=== PATIENT | male | born 1945 | race Caucasian/White ===

== ENCOUNTER → 2017-10-10 | Day surgery (SDC) | payer MEDICARE, OTHER ==
[2017-10-02 11:23] VITALS: BMI 34.8
[~2017-10-10] MED LIST: BUPIVACAINE-EPI 0.5%-1:200,000 10 ML VIAL SQ ONE; DEXAMETHASONE SOD PHOSPHATE 10 MG/ML 1 ML VIAL IV ONE; GLYCOPYRROLATE 0.2 MG/ML 2 ML VIAL ONE; HEPARIN SODIUM,PORCINE 5,000 UNIT/ML 1 ML VIAL SQ ONE; HYDROcodone/APAP 7.5-325MG 1 EACH TAB PO ONE; HYDROmorphone (PF) 1 MG/ML ONE; HYDROmorphone 2 MG/ML 1 ML SYRINGE IVP ONE; LIDOCAINE 1% 20 ML VIAL (10MG/ML) FOR IV START INTRADERMA ONE; LIDOCAINE 1% INJ 10MG/ML (20 ML MDV) ONE; MIDAZOLAM 2 MG/2 ML VIAL IV PRN; MIDAZOLAM 2 MG/2 ML VIAL ONE; MORPHINE SULFATE 2 MG/ML SYRINGE IV PRN; NEOSTIGMINE 1 MG/ML 10 ML VIAL ONE; ONDANSETRON 4 MG/2 ML VIAL IVP ONE; PHENYLEPHRINE-0.9% NACL SYG 1 MG/10 ML SYRINGE ONE; PROPOFOL 10 MG/ML 20 ML VIAL IV ONE; SUCCINYLCHOLINE CHLORIDE VIAL 200 MG/10 ML VIAL IV ONE; VECURONIUM 10 MG VIAL IV ONE; ceFAZolin IN SWFI 2 GM/20 ML SYRINGE IVP ONE; fentaNYL (PF) 50 MCG/ML 2 ML AMP ONE
[2017-10-10] MEDS: LACTATED RINGERS 1,000 ML IV SCH (07:46)
[2017-10-10 07:48] LABS: Glucose,Whole Blood 144 mg/dL (75-99)
--- NOTE | 2017-10-10 07:53 | P.GSHP ---
History of Present Illness H&P Date: 10/10/17 Chief Complaint: Bilateral inguinal hernias, umbilical hernia This is a 71-year-old male referred from Dr. Carla mckeon. Patient presents today for laparoscopic robotic system repair of bilateral inguinal hernias and umbilical hernia. Patient developed tender masses in bilateral groins. Past Medical History Past Medical History: Coronary Artery Disease (CAD), Diabetes Mellitus, Hyperlipidemia, Hypertension, Osteoarthritis (OA), Prostate Disorder Additional Past Medical History / Comment(s): problem with balance, Menieres History of Any Multi-Drug Resistant Organisms: None Reported Past Surgical History: Back Surgery, Coronary Bypass/CABG, Heart Catheterization , Orthopedic Surgery Additional Past Surgical History / Comment(s): graham carpal tunnel, cervical fusion, L3-l5 x 2(fusion) Past Anesthesia/Blood Transfusion Reactions: Family History of Problems w/ Anesthesia Smoking Status: Former smoker - Past Family History Mother Family Medical History: Cancer Medications and Allergies Home Medications Medication Instructions Recorded Confirmed Type Allopurinol [Zyloprim] 300 mg PO DAILY 09/06/17 10/10/17 History Aspirin 325 mg PO DAILY 09/06/17 10/02/17 History Atorvastatin [Lipitor] 10 mg PO DAILY 09/06/17 10/10/17 History Lisinopril-Hctz 20-25 mg 1 tab PO DAILY 09/06/17 10/10/17 History [Zestoretic 20-25] Loratadine [Claritin] 10 mg PO DAILY 09/06/17 10/10/17 History Anna-3 Fatty Acids/Fish Oil [Fish 1 cap PO DAILY 09/06/17 10/02/17 History Oil 1,000 mg Softgel] glipiZIDE XL [Glucotrol Xl] 2.5 mg PO DAILY 09/06/17 10/10/17 History Nitroglycerin Sl Tabs [Nitrostat] 0.4 mg SUBLINGUAL Q5M PRN 10/02/17 10/02/17 History traMADol HCl [Ultram] 100 mg PO TID PRN 10/02/17 10/10/17 History Allergies Allergy/AdvReac Type Severity Reaction Status Date / Time almond Allergy Unknown Verified 10/02/17 11:08 black pepper Allergy Unknown Verified 10/02/17 11:08 coconut Allergy Unknown Verified 10/02/17 11:08 egg Allergy Unknown Verified 10/02/17 11:08 gluten Allergy Unknown Verified 10/02/17 11:08 milk Allergy Unknown Verified 10/02/17 11:08 oats Allergy Unknown Verified 10/02/17 11:08 peach Allergy Unknown Verified 10/02/17 11:08 peanut Allergy Unknown Verified 10/02/17 11:08 pineapple Allergy Unknown Verified 10/02/17 11:08 tetanus and diphtheria Allergy Unknown Verified 10/02/17 11:08 toxoids tomato Allergy Unknown Verified 10/02/17 11:08 Surgical - Exam Vital Signs Temp Pulse Resp BP Pulse Ox 97.7 F 85 18 133/72 97 10/10/17 07:24 10/10/17 07:24 10/10/17 07:24 10/10/17 07:24 10/10/17 07:24 - General well developed, well nourished, no distress - Eyes PERRL - ENT normal pinna - Neck no masses - Respiratory normal expansion - Cardiovascular Rhythm: regular - Abdomen Abdomen: soft, non tender Hernia: inguinal (Bilateral inguinal hernias), umbilical (Umbilical hernia ) Results - Labs Abnormal Lab Results - Last 24 Hours (Table) 10/10/17 Range/Units 07:32 POC Glucose (mg/dL) 144 H (75-99) mg/dL Assessment and Plan Assessment: bilateral inguinal hernia, umbilical hernia we'll perform laparoscopic robotic- assisted repair. Plan: bbb
[2017-10-10 10:04] VITALS: TEMP 97.6
[2017-10-10 10:22] VITALS: RESP 16
--- NOTE | 2017-10-10 10:27 | P.OP ---
Date of Procedure: 10/10/17 Preoperative Diagnosis: bilateral inguinal hernias Umbilical hernia Postoperative Diagnosis: bilateral internal hernia Bilateral cord lipoma Umbilical hernia Procedure(s) Performed: laparoscopic robotic repair of bilateral inguinal hernia Laparoscopic excision of bilateral cord lipoma Laparoscopic repair of umbilical hernia Anesthesia: VANGIE Surgeon: Ryan Ulrich Estimated Blood Loss (ml): 5 Pathology: other (right and left cord lipoma) Condition: stable Disposition: PACU Description of Procedure: The patient's placed on the operating table in the supine position. The patient received general anesthesia. The patient's abdomen was prepped and draped in usual sterile fashion. The skin was anesthetized 1% local Xylocaine at the incision sites. Using an 11 blade a skin incision was made at the umbilicus. The fascia was grasped with a Kerry and then the peritoneal cavity was entered with the Veress needle. Position of the Veress needle was confirmed with a positive drop test. After adequate insufflation a 5 mm trocar was placed into the peritoneal cavity. The Laparoscope was placed the peritoneal cavity. And a robotic 8 mm trocar was placed in the right lateral position and then another 8 mm robotic trochars placed in the left lateral position. The original 5 mm trocar was exchanged for a 12 mm trocar. The patient was placed in reverse Trendelenburg and then the patient was docked to the robot. Next the peritoneum over top of the righthernia was incised and then using blunt and sharp dissection and electrocautery the hernia sac was dissected free from the floor of the inguinal canal. The hernia sac was completely reduced into the peritoneal cavity. cord lipoma was dissected free from the cord.And then using the Pro manager psychiatry mesh the hernia was repaired. The peritoneum was then sutured with 20V lock suture. next, left inguinal hernia was repaired in identical fashion. the righthernia was incised and then using blunt and sharp dissection and electrocautery the hernia sac was dissected free from the floor of the inguinal canal. The hernia sac was completely reduced into the peritoneal cavity. the cord lipoma was excised from the cord. And then using the Pro manager psychiatry mesh the hernia was repaired. The peritoneum was then sutured with 20V lock suture. The patient was then undocked the robot. The needle was withdrawn from the peritoneal cavity. the cord lipomas were removed fromfrom the peritoneal cavity and sent to pathology..The umbilicalherniar site was closed with 0 Ethibond suture. The skin was closed interrupted 3-0 Monocryl suture. Dermabond dressing was applied. Patient was sent to recovery in stable condition.
[2017-10-10 10:45] LABS: Glucose,Whole Blood 310 mg/dL (75-99)
[2017-10-10 10:58] LABS: Glucose,Whole Blood 273 mg/dL (75-99)
[2017-10-10 12:59] VITALS: BP 107/56; PULSE 78
== END ==
LOC: OR 06:50
PROVIDERS: ATTEND Surgery
DX: K40.20 Bilateral inguinal hernia, without obstruction or gangrene, not specified as recurrent (principal); K42.9 Umbilical hernia without obstruction or gangrene; D17.6 Benign lipomatous neoplasm of spermatic cord; I25.10 Atherosclerotic heart disease of native coronary artery without angina pectoris; E11.9 Type 2 diabetes mellitus without complications; E78.5 Hyperlipidemia, unspecified; I10 Essential (primary) hypertension; M19.90 Unspecified osteoarthritis, unspecified site; N42.9 Disorder of prostate, unspecified; F41.9 Anxiety disorder, unspecified; F32.9 Major depressive disorder, single episode, unspecified; H81.09 Meniere's disease, unspecified ear; Z95.1 Presence of aortocoronary bypass graft; Z79.84 Long term (current) use of oral hypoglycemic drugs; Z79.82 Long term (current) use of aspirin; Z79.899 Other long term (current) drug therapy; Z91.012 Allergy to eggs; Z91.011 Allergy to milk products; Z91.018 Allergy to other foods; Z88.7 Allergy status to serum and vaccine; Z91.010 Allergy to peanuts; Z87.891 Personal history of nicotine dependence
CPT/HCPCS: 88304; 49650; 49652; 55559; C1781; J2250; J0330; J1170 ×2; J1644; J1100; J2710; J0690; J2405; J2001; J3010; J2370; J2704

== ENCOUNTER → 2019-09-05 | Outpatient (CLI) | payer MEDICARE ==
--- NOTE | 2019-09-05 11:56 | CONS ---
CONSULTATION DATE OF SERVICE: 09/05/2019 A 73-year-old gentleman who has been evaluated in the Sleep Center for possible obstructive sleep apnea-hypopnea syndrome. HISTORY OF PRESENT ILLNESS/SLEEP-WAKE EVALUATION: Patient usually sleeps from around 9 pm until about 5 am. He does have problems with falling asleep, although no TV in bedroom. He sleeps with his . According to her, he snores, has episodes of stopped breathing during sleep and does toss and turn a lot during the sleep. He wakes up from sleep 3 times with nocturia, grinding teeth, dry mouth, heartburn, positive history of episodes of sleepwalking or sleep talking, sweating and gasping for air. No history of hypnagogic hallucinations, sleep paralysis or cataplexy. Patient takes multiple naps during the day up to 5 times in the middle of the day. [place] Sleepiness Scale extremely high 21. PAST MEDICAL HISTORY: Positive for coronary artery disease, hypertension, diabetes mellitus, hyperlipidemia, increased eye pressure. PAST SURGICAL HISTORY: Coronary artery bypass graft, several herniated prior surgeries, surgery for bilateral carpal tunnel syndrome, right inner ear surgery. MEDICATIONS: Toprol, metformin, losartan, atorvastatin, Nitrostat, latanoprost eye drops, aspirin, D3, hydrochlorothiazide. Medication for pain. Patient does SOCIAL HISTORY: Positive for smoking for about 35 years, up to 3 packs a day. According to patient, alcohol consumption none at the present time. REVIEW OF SYSTEMS: Multiple awakenings from sleep, back pain, tiredness and sleepiness during the day. FAMILY HISTORY: Hypertension, heart problems, hyperlipidemia, stroke, asthma, sinus problems, snoring, pneumonia, lung problems, acid reflux, ulcers, diabetes, nasal polyps. PHYSICAL EXAM: gentleman without distress BP 130/64, HR 68, RR 14, height 5 feet 10 inches, weight 225.8, temperature 97.6, oxygen saturation at room air 97% oropharynx low position of soft palate. Mallampati of 3. White neck is 17 inches in circumference, restriction of nasal breathing the physical just heart S1, S2 regular with some extrasystoles. LUNGS: Clear to percussion and to auscultation. Good air exchange. No wheezing or rhonchi. HEART: My template. IMPRESSION: 1. One snoring witnessed episodes of stopped breathing during sleep. Low position of soft palate, wide neck sleepiness or obstructive sleep apnea-hypopnea syndrome 2 significant excessive daytime sleepiness with [place] Sleepiness Scale of 21. Dictated necessity to include hypersomnia in differential diagnosis. Three significant amount of movements at night. Rule out periodic limb movements. 2. Coronary artery disease, status post [place] and CABG. 3. Hypertension. 4. Hyperlipidemia. 5. Diabetes mellitus. 6. Increased eye pressure. 7. Meniere disease. Remote history of Meniere disease. 8. Status post right inner ear surgery. 9. Status post several hernia repair surgeries status post bilateral surgery for carpal tunnel syndrome. 10.History of broken neck and broken back, status post surgical treatment. PLAN: 1. Polysomnography for evaluation of patient's breathing during sleep. 2. CPAP/BiPAP titration if sleep study confirms obstructive sleep apnea-hypopnea syndrome. 3. Preferable position during sleep on the side. 4. No driving if patient feels any sleepiness. 5. I will see patient for follow up visit to explain results of testing and following plan. Thank you very much for referring this patient for consultation. Sincerely, Pierre Birmingham MD, PhD, FAASM Diplomat of [employer] Retail Salesworker of [facility] [place] MMODL / IJN: [id number] /
== END | disposition home or self-care (01) ==
LOC: SLEEP 10:24
PROVIDERS: ATTEND Internal Medicine
DX: R06.83 Snoring (principal); I25.10 Atherosclerotic heart disease of native coronary artery without angina pectoris; I10 Essential (primary) hypertension; E78.5 Hyperlipidemia, unspecified; E11.9 Type 2 diabetes mellitus without complications; H40.059 Ocular hypertension, unspecified eye; H81.09 Meniere's disease, unspecified ear; R35.1 Nocturia; G47.63 Sleep related bruxism; R12 Heartburn; R68.2 Dry mouth, unspecified; F17.210 Nicotine dependence, cigarettes, uncomplicated; Z87.81 Personal history of (healed) traumatic fracture; Z95.1 Presence of aortocoronary bypass graft; Z98.890 Other specified postprocedural states; Z79.82 Long term (current) use of aspirin; Z79.84 Long term (current) use of oral hypoglycemic drugs; Z79.899 Other long term (current) drug therapy
CPT/HCPCS: 99211

== ENCOUNTER → 2020-03-19 | Outpatient (CLI) | payer MEDICARE ==
--- NOTE | 2020-03-20 05:25 | SFUN ---
SLEEP CENTER FOLLOW UP NOTE DATE OF SERVICE: 03/19/2020 This is a 74-year-old gentleman who has been followed in sleep center for treatment of obstructive sleep apnea-hypopnea syndrome. Today is his first visit after he was started on treatment with CPAP. The patient is able to use CPAP equipment every night and feels much better after awakenings in the morning while started to use CPAP. No problems with the sinuses. [place] Sleepiness Scale today is 12. I checked patient's CPAP unit. CPAP pressure of 6 cm of water. Usage 28 out of 30 nights for more than 4 hours. Average use is 6.2 hours. Leak 12 L/minute. Apnea- hypopnea index only 0.8, which is absolutely perfect. MEDICATIONS: Glipizide, lisinopril, hydrochlorothiazide, atorvastatin, montelukast, allopurinol, , tramadol. PHYSICAL EXAMINATION: GENERAL: Patient in no distress. VITAL SIGNS: BP 112/52, HR 72, RR 16, weight 231, temp 97.9, oxygen saturation at room air 99%. HEENT: PERRLA, EOMI. Oropharynx low position of soft palate. NECK: Supple, no JVD. Thyroid is not palpable. LUNGS: Clear to percussion and to auscultation. Good air exchange. No wheezing or rhonchi. HEART: S1, S2 regular. No murmurs, gallops, or rubs. ABDOMEN: Soft and nontender. Bowel sounds are present. No organomegaly appreciated. EXTREMITIES: No clubbing or cyanosis. EXPLOSIVE ORDNANCE HANDLER: Awake, alert, and oriented X3. Cranial nerves 2 to 7 intact. There is no fasciculation or atrophy. noted. No focal deficits observed. IMPRESSION: 1. Obstructive sleep apnea-hypopnea syndrome. Patient demonstrated great compliance with treatment, benefitting from treatment. 2. Periodic limb movements during the sleep study. 3. Coronary artery disease, status post coronary artery bypass grafting. 4. Hypertension. 5. Diabetes mellitus. 6. History of increased eye pressure. 7. History of Meniere disease. 8. History of broken neck. 9. History of broken back. PLAN: 1. Patient will continue to use CPAP equipment every night for the whole night. 2. Watching and losing weight. 3. Sleep hygiene with regular time in bed for at least 7-1/2 to 8 hours. 4. No driving if feeling any sleepiness. 5. Will maintain prescriptions for all necessary supplies. 6. Follow-up visit in 6 months or earlier if patient has any problems. Thank you very much for allowing me to participate in management of your patient. Sincerely, Pierre Birmingham MD, PhD, FAASM Diplomat of [employer] Housing Counselor of [facility] [place] MMODL / FELISHAN: [id number] /
== END | disposition home or self-care (01) ==
LOC: SLEEP 13:30
PROVIDERS: ATTEND Internal Medicine
DX: G47.33 Obstructive sleep apnea (adult) (pediatric) (principal); I25.10 Atherosclerotic heart disease of native coronary artery without angina pectoris; I10 Essential (primary) hypertension; E11.9 Type 2 diabetes mellitus without complications; G47.61 Periodic limb movement disorder; Z95.1 Presence of aortocoronary bypass graft; Z86.69 Personal history of other diseases of the nervous system and sense organs; Z87.39 Personal history of other diseases of the musculoskeletal system and connective tissue; Z79.84 Long term (current) use of oral hypoglycemic drugs; Z79.891 Long term (current) use of opiate analgesic; Z79.899 Other long term (current) drug therapy

== ENCOUNTER → 2020-05-18 | Outpatient (CLI) | payer MEDICARE ==
--- NOTE | 2020-05-18 07:42 | MR ---
MRI CERVICAL SPINE: CLINICAL HISTORY: Cervical radiculopathy per order. Headache with neck pain causing pain or weakness to both arms and fingers after work injury and surgery 20 years ago per patient. TECHNIQUE: Multiplanar, multisequence imaging of the cervical spine is performed without and with IV contrast, 10 cc of gadolinium was given intravenously. COMPARISON: None. FINDINGS: Sagittal images of the cervical spine show the craniocervical junction to appear within nor mal limits. The cervical and upper thoracic spinal cord is normal in caliber and signal. Some loss o f normal cervical curvature is present. There is ossific fusion at the C5-C6 level with moderate to s evere anterior spurring. Moderate to severe anterior spurring C4-C5 level is present. Moderate disc s pace narrowing with vacuum disc phenomenon and moderate anterior spurring at the C6-C7 level. Narrowi ng The bone marrow signal intensity is within normal limits. No suspicious postcontrast enhancement i s seen. Axial images at C2-C3 level shows some uncovertebral facet degenerative change bilaterally causing mi ld right greater than left bilateral neural foraminal narrowing. Axial images at the C3-C4 level from uncovertebral facet degenerative changes bilaterally causing mod erate to severe left and mild to moderate right-sided neural foraminal narrowing. Axial images at C4-C5 level show mild broad disc protrusion minimally effacing anterior thecal sac an d causing mild left-sided neural foraminal narrowing. Axial images at the C5-C6 level show left-sided paracentral bony projections effacing the anterolater al thecal sac greatest axial image 25 with mild to moderate left greater than right bilateral neural foraminal narrowing. Axial images of the C6-C7 level show focal left paracentral disc protrusion effacing anterolateral th ecal sac, there is mild right greater than left bilateral neural foraminal narrowing at this level id entified. Axial images at the C7-T1 level showed tiny left paracentral disc protrusion minimally effacing the a nterior thecal sac. Bilateral neural foramina are patent. 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 Multilevel degenerative changes in the cervical spine as detailed above.
== END | disposition home or self-care (01) ==
LOC: RADMRIMAIN 06:11
PROVIDERS: ATTEND Family Medicine
DX: M47.22 Other spondylosis with radiculopathy, cervical region (principal)
CPT/HCPCS: 72156; A9585

== ENCOUNTER → 2020-06-17 | Outpatient (CLI) | payer MEDICARE ==
[2020-06-17 13:12] VITALS: BP 161/82; PULSE 79; RESP 18; TEMP 97.9
--- NOTE | 2020-06-17 13:37 | P.PAINCN ---
History of Present Illness - Reason for Consult Consult date: 06/17/20 - History of Present Illness This is a 74-year-old patient referred by Dr. Terrazas (PCP) with a chief complaint of chronic pain in the neck and bilateral upper extremities. He said that the pain was located in the neck primarily. Hearing injury at work 20 years ago and had a resultant fusion with bone grafts in his cervical spine any mention. In the last 2-1/2 months, he noticed that pain is getting worse and is now spread into his bilateral upper extremities. Of note he does have extremely of bilateral carpal tunnel surgery, however he says his pain is much different. Pain is located in the neck with radiation into the right and left upper extremities down the posterior aspect into digits 2 through 5. The pain is described as sharp and stabbing with no alleviating factors and constant throughout the day. Any form of movement is extremely painful and his pain is currently a 10 out of 10. She mentions that he tried physical therapy in the past for his back, however he felt made the pain worse. He has had pain injections in his back in the past which sounded like a lumbar epidural steroid injection which she said helped for 6 weeks. 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 Patient denies adverse drug effects from medications. Patient also denies new-onset weakness, bowel/bladder incontinence, or any other signs or symptoms of cauda equina syndrome. There are no signs of acute intoxication, and no indications of medication diversion or overuse. In addition to above, 13-point review of systems is also negative for chest pain, shortness of breath, changes in vision, changes in hearing, new onset weakness, abdominal pain, diarrhea, extreme fatigue, malaise, fever, skin changes, homicidal or suicidal ideation, or bowel or bladder incontinence. Physical exam: Vital Signs: Reviewed in EMR GENERAL: Well appearing, obese, in no acute distress PSYCH: Mood and affect is appropriate. Awake, alert, and oriented SKIN: Skin color, texture, turgor normal, no rashes or lesions HEENT: Normocephalic, atraumatic. EOM intact CV: No pedal edema RESP: Respirations are unlabored, no audible wheezing GI: Abdomen non-distended MUSCULOSKELETAL: Bi Neck: pain to palpation over the cervical paraspinous muscles. Spurling positive, Axial Loading Test positive, Mcintosh's sign negative. pain with neck flexion, extension, and lateral flexion. No obvious deformity or signs of trauma.Decreased cervical lordotic curve and extremely limited cervical spine range of motion 4/5 strength bilaterally shoulder abduction, triceps extension, wrist extension, finger abduction. 5/5 otherwise. reflexes symmetric and intact. Extremities: Peripheral joint ROM is full and pain free without obvious instability or laxity in all four extremities. No edema or skin discolorations noted. Gait: Gait is normal NEUR: Bilateral upper and lower extremity coordination and muscle stretch reflexes are physiologic and symmetric. Negative clonus. No loss of sensation is noted. Cranial nerves are grossly intact. Imaging: MRI cervical spine 05/18/20 C2-C3 there is some uncovertebral facet degenerative changes bilaterally causing mild right greater than left bilateral neural foraminal narrowing. At C3-C4 there is uncovertebral facet degenerative changes bilaterally causing moderate to severe left and moderate right-sided neural foraminal narrowing C4-C5 shows a mild broad disc protrusion minimally effacing the anterior thecal sac. C5-C6 shows a left-sided paracentral bony extrusion effacing the anterior lateral thecal sac with mild to moderate left greater than right bilateral foraminal narrowing C6-C7 shows focal left paracentral disc protrusion effacing the anterior third lateral thecal sac with mild right greater than left bilateral foraminal narrowing C7-T1 shows tiny paracentral disc protrusion minimally effacing anterior thecal sac. Assessment: 1. Cervical radiculopathy 2. Cervical facet disease 3. Myofascial pain Plan: 1. Explanation: Diagnoses, prognoses, and multiple treatment options including but not limited to physical therapy, interventional therapies, medication management and surgery were discussed with the patient and all questions were answered to the patient's satisfaction. 2. Investigations: None 3. Counseling: The patient was counseled for 3 minutes on, BODY MASS INDEX, EXERCISE. Specifically, the patient was instructed regarding the importance of weight control, and exercise in the context of both chronic pain and overall health. 4. Procedures: For C7-T1 interlaminar epidural steroid injection. If this does not help the patient, can consider cervical medial branch workup 5. Consultations: None 6. Medications: Defer to primary 7. Disposition: for procedure Past Medical History Past Medical History: Coronary Artery Disease (CAD), Diabetes Mellitus, Hyperlipidemia, Hypertension, Osteoarthritis (OA) Additional Past Medical History / Comment(s): problem with balance, Menieres, neck and back pain History of Any Multi-Drug Resistant Organisms: None Reported Past Surgical History: Back Surgery, Coronary Bypass/CABG, Heart Catheterization, Orthopedic Surgery Additional Past Surgical History / Comment(s): CABG X3m, graham carpal tunnel, cervical fusion, L4-5-6 Past Anesthesia/Blood Transfusion Reactions: No Reported Reaction Smoking Status: Former smoker - Past Family History Mother Family Medical History: Cancer Medications and Allergies Home Medications Medication Instructions Recorded Confirmed Type Aspirin 325 mg PO DAILY 09/06/17 06/17/20 History Lisinopril-Hctz 20-25 mg 1 tab PO DAILY 09/06/17 06/17/20 History [Zestoretic 20-25] allopurinoL [Zyloprim] 300 mg PO DAILY 09/06/17 06/17/20 History glipiZIDE XL [Glucotrol Xl] 2.5 mg PO DAILY 09/06/17 06/17/20 History Nitroglycerin Sl Tabs [Nitrostat] 0.4 mg SUBLINGUAL Q5M PRN 10/02/17 06/17/20 History traMADol HCl [Ultram] 100 mg PO TID PRN 10/02/17 06/17/20 History Atorvastatin [Lipitor] 20 mg PO DAILY 06/15/20 06/17/20 History Cyclobenzaprine [Flexeril] 10 mg PO BID PRN 06/15/20 06/17/20 History Montelukast [Singulair] 10 mg PO DAILY 06/15/20 06/17/20 History Oxycarbazepine 150 mg PO BID 06/15/20 06/17/20 History Cholecalciferol (Vitamin D3) 1 cap PO DAILY 06/17/20 06/17/20 History [Vitamin D3] Vitamin B Complex/Folic Acid 1 tab PO DAILY 06/17/20 06/17/20 History [B-Complex Tablet] Allergies Allergy/AdvReac Type Severity Reaction Status Date / Time almond Allergy Unknown Verified 06/15/20 14:29 black pepper Allergy Unknown Verified 06/15/20 14:29 coconut Allergy Unknown Verified 06/15/20 14:29 egg Allergy Unknown Verified 06/15/20 14:29 gluten Allergy Unknown Verified 06/15/20 14:29 milk Allergy Unknown Verified 06/15/20 14:29 oats Allergy Unknown Verified 06/15/20 14:29 peach Allergy Unknown Verified 06/15/20 14:29 pineapple Allergy Unknown Verified 06/15/20 14:29 tetanus and diphtheria Allergy Unknown Verified 06/15/20 14:29 toxoids tomato Allergy Unknown Verified 06/15/20 14:29 PQRS Measure Charge Sheet PQRS Narrative: Smoking Status Former smoker Pain Intensity [Neck] 7 Scale Used Numeric (1 - 10) Home Medications: Ambulatory Orders Aspirin 325 mg PO DAILY 09/06/17 Lisinopril-Hctz 20-25 mg [Zestoretic 20-25] 1 tab PO DAILY 09/06/17 allopurinoL [Zyloprim] 300 mg PO DAILY 09/06/17 glipiZIDE XL [Glucotrol Xl] 2.5 mg PO DAILY 09/06/17 Nitroglycerin Sl Tabs [Nitrostat] 0.4 mg SUBLINGUAL Q5M PRN 10/02/17 traMADol HCl [Ultram] 100 mg PO TID PRN 10/02/17 Atorvastatin [Lipitor] 20 mg PO DAILY 06/15/20 Cyclobenzaprine [Flexeril] 10 mg PO BID PRN 06/15/20 Montelukast [Singulair] 10 mg PO DAILY 06/15/20 Oxycarbazepine 150 mg PO BID 06/15/20 Cholecalciferol (Vitamin D3) [Vitamin D3] 1 cap PO DAILY 06/17/20 Vitamin B Complex/Folic Acid [B-Complex Tablet] 1 tab PO DAILY 06/17/20
== END | disposition home or self-care (01) ==
LOC: PNWHC3 12:50
PROVIDERS: ATTEND Anesthesiology
DX: M54.12 Radiculopathy, cervical region (principal); M79.18 Myalgia, other site; E11.9 Type 2 diabetes mellitus without complications; E78.5 Hyperlipidemia, unspecified; I10 Essential (primary) hypertension; M19.90 Unspecified osteoarthritis, unspecified site; I25.10 Atherosclerotic heart disease of native coronary artery without angina pectoris; Z79.82 Long term (current) use of aspirin; Z79.891 Long term (current) use of opiate analgesic; Z79.899 Other long term (current) drug therapy; Z79.84 Long term (current) use of oral hypoglycemic drugs; Z91.012 Allergy to eggs; Z91.011 Allergy to milk products; Z91.018 Allergy to other foods; Z88.7 Allergy status to serum and vaccine; Z91.09 Other allergy status, other than to drugs and biological substances
CPT/HCPCS: 99211

== ENCOUNTER 2020-06-30 07:17 | Day surgery (SDC) | payer MEDICARE ==
[~2020-06-30 07:17] MED LIST changes: -BUPIVACAINE-EPI 0.5%-1:200,000 10 ML VIAL SQ ONE; -DEXAMETHASONE SOD PHOSPHATE 10 MG/ML 1 ML VIAL IV ONE; -GLYCOPYRROLATE 0.2 MG/ML 2 ML VIAL ONE; -HEPARIN SODIUM,PORCINE 5,000 UNIT/ML 1 ML VIAL SQ ONE; -HYDROcodone/APAP 7.5-325MG 1 EACH TAB PO ONE; -HYDROmorphone (PF) 1 MG/ML ONE; -HYDROmorphone 2 MG/ML 1 ML SYRINGE IVP ONE; +LACTATED RINGERS 1,000 ML IV SCH; -LIDOCAINE 1% 20 ML VIAL (10MG/ML) FOR IV START INTRADERMA ONE; -LIDOCAINE 1% INJ 10MG/ML (20 ML MDV) ONE; -MIDAZOLAM 2 MG/2 ML VIAL IV PRN; -MIDAZOLAM 2 MG/2 ML VIAL ONE; -MORPHINE SULFATE 2 MG/ML SYRINGE IV PRN; -NEOSTIGMINE 1 MG/ML 10 ML VIAL ONE; -ONDANSETRON 4 MG/2 ML VIAL IVP ONE; -PHENYLEPHRINE-0.9% NACL SYG 1 MG/10 ML SYRINGE ONE; -PROPOFOL 10 MG/ML 20 ML VIAL IV ONE; -SUCCINYLCHOLINE CHLORIDE VIAL 200 MG/10 ML VIAL IV ONE; -VECURONIUM 10 MG VIAL IV ONE; -ceFAZolin IN SWFI 2 GM/20 ML SYRINGE IVP ONE; -fentaNYL (PF) 50 MCG/ML 2 ML AMP ONE
[2020-06-30 08:10] VITALS: RESP 16; TEMP 97.4
[2020-06-30 08:18] LABS: Glucose,Whole Blood 155 mg/dL (75-99)
[2020-06-30] MEDS ORDERED: LIDOCAINE 1% (10MG/ML) FOR IV START INTRADERMA ONE (08:18)
[2020-06-30] MEDS ORDERED: IOPAMIDOL M200 10 ML VIAL ONE (08:35)
[2020-06-30] MEDS ORDERED: fentaNYL (PF) 50 MCG/ML 2 ML AMP ONE (08:35)
[2020-06-30] MEDS ORDERED: MIDAZOLAM 2 MG/2 ML VIAL ONE (08:35)
[2020-06-30] MEDS ORDERED: DEXAMETHASONE SOD PHOSPHATE 10 MG/ML 1 ML VIAL ONE (08:35)
--- NOTE | 2020-06-30 08:51 | P.PCN ---
Date of Procedure: 06/30/20 Procedure(s) Performed: . PROCEDURE 1. Cervical epidural steroid injection under fluoroscopic guidance, C7-T1 (fluoroscopy images available in the radiology department ) 2. Cervical epidurogram. PREOPERATIVE DIAGNOSIS: 1- Cervical radiculopathy., 2-cervical spondylosis with cervical Facet arthropathy without myelopathy POSTOPERATIVE DIAGNOSIS: : 1- Cervical radiculopathy. 2-,cervical spondylosis with cervical Facet arthropathy without myelopathy ANESTHESIA: Local anesthesia with lidocaine 1 % , and moderate sedation, with Versed 1 mg and Fentanyl 50 mcg. EBL 0 PROCEDURE INDICATION: The patient with neck pain and radiculitis unresponsive to conservative treatment consents for procedure. PROCEDURE DESCRIPTION / TECHNIQUE: The patient was seen and identified in the preoperative area. Risks, benefits, complications, including but not limited to infections ,bleeding , allergic reactions to the medications ,and not complete pain releife, and alternatives were discussed with the patient, the patient agreed to proceed with the procedure and signed the consent. Patient was taken to the OR and time out was completed. The patient was placed in the prone position on the procedure table. A pillow was placed under the patients chest to increase the cervical interlaminar space. The cervical area was prepped and draped in the usual sterile fashion. Vital signs were closely monitored during the procedure. Conscious sedation was used during the procedure to decrease patients anxiety. Using anterior-posterior fluoroscopy, the C7-T1 interlaminar space was identified and the skin over this site was marked and then infiltrated with 1% lidocaine subcutaneously. Subsequently, a 20-gauge 3-1/2-inch Tuohy epidural needle was inserted and advanced toward the epidural space by means of the ``hanging-drop technique and guided by AP and lateral fluoroscopy. The correct needle position in the epidural space was verified with the injection of 2 mL of the water soluble contrast dye Isovue-200 and observing an excellent epidurogram with the epidural spread of the dye, after negative aspiration for blood and CSF and in the absence of paresthesias. Again after negative aspiration, mixture containing 10 mg Dexamethasone and 2 ml of preservative- free normal saline injected and a washout of epidurogram was seen. Needle was withdrawn intact, skin was cleansed, and bandages were applied. Complications= none. Disposition= patient was placed in supine position and transferred to the recovery room area in stable condition and there was no evidence of upper or lower extremity motor or sensory deficit after the procedure patient was discharged from recovery room after discharge criteria met and home discharge instructions was given by the staff and patient will follow with the pain clinic in 2-4 weeks
[2020-06-30] MEDS ORDERED: IV FLUID CONTINUATION 600 ML IV ONE (08:57)
[2020-06-30 09:20] VITALS: BP 156/84; PULSE 69
--- NOTE | 2020-06-30 09:26 | FL ---
EXAMINATION TYPE: FL guided pain mgmt statistic DATE OF EXAM: 06/30/2020 HISTORY: Fluoroscopy time 2 seconds of fluoroscopy provided. IMPRESSION: 1. Fluoroscopy time.
== END 2020-06-30 09:42 | disposition home or self-care (01) ==
LOC: ORPAIN 07:17
PROVIDERS: ATTEND Specialist
DX: M47.22 Other spondylosis with radiculopathy, cervical region (principal); E11.9 Type 2 diabetes mellitus without complications; I10 Essential (primary) hypertension; I25.10 Atherosclerotic heart disease of native coronary artery without angina pectoris; Z91.010 Allergy to peanuts; Z91.018 Allergy to other foods
CPT/HCPCS: 62321; J2250; J1100; J3010; Q9966

== ENCOUNTER 2020-07-14 07:15 | Day surgery (SDC) | payer MEDICARE ==
[2020-07-10 12:11] VITALS: BMI 31.9
[2020-07-14 07:48] VITALS: RESP 18; TEMP 98
[2020-07-14 07:57] LABS: Glucose,Whole Blood 154 mg/dL (75-99)
[2020-07-14] MEDS ORDERED: LACTATED RINGERS 1,000 ML IV ONE (08:00)
[2020-07-14] MEDS ORDERED: LIDOCAINE 1% (10MG/ML) FOR IV START INTRADERMA ONE (08:00)
[2020-07-14] MEDS ORDERED: DEXAMETHASONE SOD PHOSPHATE 10 MG/ML 1 ML VIAL ONE (08:26)
[2020-07-14] MEDS ORDERED: IOPAMIDOL M200 10 ML VIAL ONE (08:26)
[2020-07-14] MEDS ORDERED: fentaNYL (PF) 50 MCG/ML 2 ML AMP ONE (08:26)
[2020-07-14] MEDS ORDERED: MIDAZOLAM 2 MG/2 ML VIAL ONE (08:26)
--- NOTE | 2020-07-14 08:44 | P.PCN ---
Date of Procedure: 07/14/20 Procedure(s) Performed: PROCEDURE 1. Cervical epidural steroid injection under fluoroscopic guidance, C7-T1 (fluoroscopy images available in the radiology department ) 2. Cervical epidurogram. PREOPERATIVE DIAGNOSIS: 1- Cervical radiculopathy., 2-cervical spondylosis with cervical Facet arthropathy without myelopathy POSTOPERATIVE DIAGNOSIS: : 1- Cervical radiculopathy. 2-,cervical spondylosis with cervical Facet arthropathy without myelopathy ANESTHESIA: Local anesthesia with lidocaine 1 % , and moderate sedation, with Versed 2 mg and Fentanyl 50 mcg. EBL 0 PROCEDURE INDICATION: The patient with neck pain and radiculitis unresponsive to conservative treatment consents for procedure. PROCEDURE DESCRIPTION / TECHNIQUE: The patient was seen and identified in the preoperative area. Risks, benefits, complications, including but not limited to infections ,bleeding , allergic reactions to the medications ,and not complete pain releife, and alternatives were discussed with the patient, the patient agreed to proceed with the procedure and signed the consent. Patient was taken to the OR and time out was completed. The patient was placed in the prone position on the procedure table. A pillow was placed under the patients chest to increase the cervical interlaminar space. The cervical area was prepped and draped in the usual sterile fashion. Vital signs were closely monitored during the procedure. Conscious sedation was used during the procedure to decrease patients anxiety. Using anterior-posterior fluoroscopy, the C7-T1 interlaminar space was identified and the skin over this site was marked and then infiltrated with 1% lidocaine subcutaneously. Subsequently, a 20-gauge 3-1/2-inch Tuohy epidural needle was inserted and advanced toward the epidural space by means of the ``hanging-drop technique and guided by AP and lateral fluoroscopy. The correct needle position in the epidural space was verified with the injection of 2 mL of the water soluble contrast dye Isovue-200 and observing an excellent epidurogram with the epidural spread of the dye, after negative aspiration for blood and CSF and in the absence of paresthesias. Again after negative aspiration, mixture containing 10 mg Dexamethasone and 2 ml of preservative- free normal saline injected and a washout of epidurogram was seen. Needle was withdrawn intact, skin was cleansed, and bandages were applied. Complications= none. Disposition= patient was placed in supine position and transferred to the recovery room area in stable condition and there was no evidence of upper or lower extremity motor or sensory deficit after the procedure patient was discharged from recovery room after discharge criteria met and home discharge instructions was given by the staff and patient will follow with the pain clinic in 2-4 weeks
[2020-07-14 09:02] VITALS: BP 125/72; PULSE 69
[2020-07-14] MEDS ORDERED: IV FLUID CONTINUATION 1,000 ML IV ONE (09:03)
--- NOTE | 2020-07-14 10:34 | FL ---
EXAMINATION TYPE: FL guided pain mgmt statistic DATE OF EXAM: 07/14/2020 COMPARISON: NONE HISTORY: Cervical epidural injection TECHNIQUE: Fluoroscopy. FINDINGS: Fluoroscopic guidance was provided during procedure for performing physician. A total of 3 seconds of fluoroscopic time was utilized during the procedure and 1 spot images was acquired. IMPRESSION: As Above.
== END 2020-07-14 09:20 | disposition home or self-care (01) ==
LOC: ORPAIN 07:15
PROVIDERS: ATTEND Specialist
DX: M47.22 Other spondylosis with radiculopathy, cervical region (principal); M50.10 Cervical disc disorder with radiculopathy, unspecified cervical region; E11.9 Type 2 diabetes mellitus without complications; Z79.82 Long term (current) use of aspirin; Z91.011 Allergy to milk products; Z91.018 Allergy to other foods
CPT/HCPCS: 62321; J2250; J1100; J3010; Q9966

== ENCOUNTER → 2020-08-03 | Outpatient (CLI) | payer MEDICARE ==
[2020-08-03 13:29] VITALS: BP 123/75; PULSE 87; RESP 16
--- NOTE | 2020-08-03 14:05 | P.PN ---
Subjective Progress Note Date: 08/03/20 This is a follow-up visit for this 74 years old male with a history of severe neck pain, radiation to the upper extremity his diagnosis was cervical radiculopathy and cervical spondylosis with cervical facet arthropathy, status post cervical epidural steroid injections 2 , patient reported that his neck p ain improved significantly , and currently his main problem is in low back pain with radiation to the lower extremity bilaterally, the pain in the low back area is constant and increases with any activity interference with her quality of life, he continue to use Ultram 50 mg 3 times a day and Flexeril 10 mg twice a day he denies any side effect of the medication, patient had lumbar laminectomy and fusion surgery, done several years ago, and he continued to have low back pain after the surgery, he denies any fever or night sweats he denies any change in bowel movement or urination, is able to ambulate on his own. Objective - Vital Signs Vital signs: Vital Signs Temp Pulse 87 08/03/20 13:23 Resp 16 08/03/20 13:23 BP 123/75 08/03/20 13:23 Pulse Ox 98 08/03/20 13:23 - Exam Physical Examinations : -Constitutiona : Cooperative , not in acute distress . -HEENT : nech : supple , no Lymphadenopathy , normal thyroid size . : eyes : no ptosis , no icterus, no photophobia . - neurologic : Cranial nerve II to XII intact , no focal neurological deffecit . -psychatric : alert , oriented X 3 , appropriate affect , intact judgment and insight . -Lymphatic : no Lymphadenopathy . - musculoskeltal : Cervical Spine motor stregnth in the deltoid and biceps, normal right side , normal Left side motor stregnth biceps and the wrist extensors normal right side ,normal left side . motor stregnth in the triceps muscle . normal Right side , normal Left side deep tendon reflexes normal at the biceps , normal at Brachioradialis , normal at triceps. Lumber spine moter stegnth lower extremities ,thigh and legs 5/5 Right side , 5/5 Left side deep tendon reflexes : normal Knee Jerk , normal ankle Jerk lumber facet Loading Test =positive Right , positive Left Range of motion of the lumbar spine Flexion 30 degrees, extension 10 degrees strait leg raising test = positive at 30 degree Fabere test= positive Right , and positive LT . Sever tenderness over the Sacroiliac joint on the Right , and Left sides Assessment and Plan Plan: Assessment and plan=1-cervical radiculopathy. 2-cervical spondylosis with cervical facet arthropathy. 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 4-lumbar spondylosis with lumbar facet arthropathy. Neck pain improved significantly after cervical epidural steroid injections x2 . Currently most of the pain in the low back area patient wished to proceed with the treatment of his low back pain, MRI of the lumbar spine Need to be ordered before we can direct the treatment, patient given prescription for MRI of the lumbar spine with and without contrast And he will call the pain clinic after he gets the result. Time with Patient: Less than 30
== END | disposition home or self-care (01) ==
LOC: PNWHC3 12:48
PROVIDERS: ATTEND Specialist
DX: M47.22 Other spondylosis with radiculopathy, cervical region (principal); M47.816 Spondylosis without myelopathy or radiculopathy, lumbar region; M96.1 Postlaminectomy syndrome, not elsewhere classified
CPT/HCPCS: 99211

== ENCOUNTER → 2020-08-27 | Outpatient (CLI) | payer MEDICARE ==
--- NOTE | 2020-08-27 14:28 | SFUN ---
SLEEP CENTER FOLLOW UP NOTE DATE OF SERVICE: 08/27/2020. A 74-year-old gentleman who has been followed in the Sleep Center for treatment of obstructive sleep apnea-hypopnea syndrome. Patient successfully continues to use his CPAP equipment every night. He sleeps well with that. Sometimes takes naps during the day. [place] Sleepiness Scale increased today to 15. I checked CPAP unit. CPAP pressure is 6 cm of water, usage / nights more than 4 hours. Average usage 6.3 hours per night. Leak is 14 L/minute which is acceptable range, apnea-hypopnea index is only 0.6, which is perfect. MEDICATIONS: Lisinopril hydrochlorothiazide 20-25 mg once a day, glipizide ER 2.5 mg once a day, Atorvastatin 20 mg once a day, Allopurinol 300 mg once a day, Montelukast 10 mg once a day, 150 mg twice a day, tramadol 50 mg on p.r.n. basis, 5 mg on a p.r.n. basis up to twice a day. PHYSICAL EXAM: Patient in no distress. BP 132/70, HR 80, RR 15, height 5 feet 10 inches, weight 235, BMI 33.7, temp is 98.1, oxygen saturation at room air 99%. OROPHARYNX: Low position of soft palate. ABDOMEN: Obese. NECK: Supple, no JVD. Thyroid is not palpable. LUNGS: Clear to percussion and to auscultation. Good air exchange. No wheezing or rhonchi. HEART: S1, S2 regular. No murmurs, gallops, or rubs. EXTREMITIES: No clubbing or cyanosis. ROOM SERVICE BELLHOP: Awake, alert, and oriented X3. Cranial nerves 2 to 7 intact. There is no fasciculation or atrophy. noted. No focal deficits observed. IMPRESSION: 1. Obstructive sleep apnea-hypopnea syndrome. Patient demonstrated 100% compliance with treatment benefitting from treatment. 2. Coronary artery disease, status post coronary artery bypass grafting. 3. Obesity. 4. Hypertension. 5. Periodic limb movements during the sleep test. 6. Diabetes mellitus. 7. History of increased eye pressure. 8. History of Meniere disease. 9. History of broken neck. 10.History of broken back. PLAN: 1. Patient will continue to use PAP equipment every night for the whole night. 2. Sleep hygiene with regular time in bed for at least 7-1/2 to 8 hours. 3. Precautions related to driving. No driving if feeling sleepiness. 4. I will maintain all necessary prescription for PAP supplies including mask, tube, filters. 5. Watching weight. 6. No driving if feeling sleepiness. 7. Follow-up visit in 6 months or earlier if patient has any problems. 8. Maintain prescription for all necessary supplies including mask, tube, and filters. Thank you very much for allowing me to participate in the management of your patient. Sincerely, Pierre Birmingham MD, PhD, FAASM Diplomat of [employer] Environmental Studies Professor of [facility] Ignacio MMODL / FELISHAN: [id number] /
== END | disposition home or self-care (01) ==
LOC: SLEEP 11:07
PROVIDERS: ATTEND Internal Medicine
DX: G47.33 Obstructive sleep apnea (adult) (pediatric) (principal); E66.9 Obesity, unspecified; I10 Essential (primary) hypertension; E11.9 Type 2 diabetes mellitus without complications; I25.10 Atherosclerotic heart disease of native coronary artery without angina pectoris; Z87.898 Personal history of other specified conditions; Z99.89 Dependence on other enabling machines and devices; Z79.891 Long term (current) use of opiate analgesic; Z79.899 Other long term (current) drug therapy; Z79.84 Long term (current) use of oral hypoglycemic drugs

== ENCOUNTER → 2020-09-01 | Outpatient (CLI) | payer MEDICARE ==
--- NOTE | 2020-09-01 12:48 | MR ---
EXAMINATION TYPE: MR lumbar spine wo/w con DATE OF EXAM: 09/01/2020 COMPARISON: CT abdomen pelvis 09/06/2017 HISTORY: Failed Back Surgery Snydrome, pain, leg weakness TECHNIQUE: Multiplanar, multisequence images of the lumbar spine were acquired utilizing 10 mL intravenous Gadav ist gadolinium contrast. L1-L2: Normal disc appearance without desiccation. No herniation, protrusion or disc bulging. No ca nal stenosis is present. Foramina are patent bilaterally. L2-L3: Normal disc appearance without desiccation. No herniation, protrusion or disc bulging. No ca nal stenosis is present. Foramina are patent bilaterally. L3-L4: Normal disc appearance without desiccation. No herniation, protrusion or disc bulging. No ca nal stenosis is present. Foramina are patent bilaterally. L4-L5: Postop changes are noted posteriorly. Listhesis contributes to cause bilateral foraminal encro achment left greater than right. There is also moderate spinal stenosis present, posterior broad-base d disc bulge causes anterior mass effect on the thecal sac. Loss of disc height signal is present. Th ere are facet arthropathy changes present. L5-S1: Normal disc appearance without desiccation. No herniation, protrusion or disc bulging. No ca nal stenosis is present. Foramina are patent bilaterally. There is facet arthropathy change present. Lumbar segments are remarkable for bilateral spondylolysis at L4, anterolisthesis grade 1-2 L4-5 is a gain noted. No paraspinal masses are identified. Conus medullaris has a normal appearance. There is some disc enhancement following contrast administration which is somewhat patchy. There is spondylos is with endplate discogenic marrow signal change present. Multilevel spondylosis is present. IMPRESSION: Postop changes, facet arthropathy, foraminal encroachment as described. Mild to moderate spinal steno sis at L4-5.
== END | disposition home or self-care (01) ==
LOC: RADMRIMAIN 08:45
PROVIDERS: ATTEND Specialist
DX: M48.061 Spinal stenosis, lumbar region without neurogenic claudication (principal); M47.816 Spondylosis without myelopathy or radiculopathy, lumbar region; Z98.890 Other specified postprocedural states
CPT/HCPCS: 72158; A9585

== ENCOUNTER → 2020-09-16 | Outpatient (CLI) | payer MEDICARE ==
[2020-09-16 10:24] VITALS: BP 124/74; PULSE 52; RESP 16; TEMP 97.9
--- NOTE | 2020-09-16 10:54 | P.PN ---
Subjective Progress Note Date: 09/16/20 This is a follow-up visit for this 74 years old male with a history of severe neck pain, radiation to the upper extremity his diagnosis was cervical radiculopathy and cervical spondylosis with cervical facet arthropathy, status post cervical epidural steroid injections 2 , patient reported that his neck pain improved significantly , and currently his main problem is in low back pain with radiation to the lower extremity bilaterally, the pain in the low back area is constant and increases with any activity interference with her quality of life, he continue to use Ultram 50 mg 3 times a day and Flexeril 10 mg twice a day he denies any side effect of the medication, patient had lumbar laminectomy and fusion surgery, done several years ago, and he continued to have low back pain after the surgery, he denies any fever or night sweats he denies any change in bowel movement or urination, is able to ambulate on his own. And patient here today to discuss the results of the MRI of the lumbar spine that it was done recently Objective - Vital Signs Vital signs: Vital Signs Temp 97.9 F 09/16/20 10:16 Pulse 52 L 09/16/20 10:16 Resp 16 09/16/20 10:16 BP 124/74 09/16/20 10:16 Pulse Ox 100 09/16/20 10:16 Intake & Output 09/15/20 09/16/20 09/16/20 18:59 06:59 18:59 Weight 108.862 kg - Exam Physical Examinations : -Constitutiona : Cooperative , not in acute distress . -HEENT : nech : supple , no Lymphadenopathy , normal thyroid size . : eyes : no ptosis , no icterus, no photophobia . - neurologic : Cranial nerve II to XII intact , no focal neurological deffecit . -psychatric : alert , oriented X 3 , appropriate affect , intact judgment and insight . -Lymphatic : no Lymphadenopathy . - musculoskeltal : Cervical Spine motor stregnth in the deltoid and biceps, normal right side , normal Left side motor stregnth biceps and the wrist extensors normal right side ,normal left side . motor stregnth in the triceps muscle . normal Right side , normal Left side deep tendon reflexes normal at the biceps , normal at Brachioradialis , normal at triceps. Lumber spine moter stegnth lower extremities ,thigh and legs 5/5 Right side , 5/5 Left side deep tendon reflexes : normal Knee Jerk , normal ankle Jerk lumber facet Loading Test =positive Right , positive Left Range of motion of the lumbar spine Flexion 30 degrees, extension 10 degrees strait leg raising test = positive at 30 degree Fabere test= positive Right , and positive LT . Sever tenderness over the Sacroiliac joint on the Right , and Left sides MRI of the lumbar spine done at [facility] 09/01/2020= L4 5. Changes and lumbar facet arthropathy L5-S1 lumbar facet arthropathy Assessment and Plan Plan: Assessment and plan=1-cervical radiculopathy. 2-cervical spondylosis with cervical facet arthropathy. 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 4-lumbar spondylosis with lumbar facet arthropathy. Neck pain improved significantly after cervical epidural steroid injections x2 . Patient will be scheduled to have diagnostic medial branch block lumbar area at L3, L4, L5, bilaterally .(facet L4-5 ,L5-S1 ) And possible RFA - PQRS measures = - Patient's medications are documented in the chart. -Tobacco use is positive/negative and counseling.Given. -Patient's has not received pneumococcal vaccine. -Advanced care planning discussed, patient not eligible. -Opiate contract signed. -Pain positive and follow-up visit/procedure is scheduled. -Patient's blood pressure measured [ 124/74 ] , and documented in the record ,and patient will follow up with the primary care. -Patient's weight was measured and body mass index [33.5 ] above the normal limits and counseling was done. and patient instructed to follow-up with the primary care physician. -Patient was not identified as an unhealthy alcohol user Time with Patient: Less than 30
== END | disposition home or self-care (01) ==
LOC: PNWHC3 09:55
PROVIDERS: ATTEND Specialist
DX: M47.22 Other spondylosis with radiculopathy, cervical region (principal); M47.816 Spondylosis without myelopathy or radiculopathy, lumbar region
CPT/HCPCS: 99211

== ENCOUNTER 2020-10-13 10:09 | Day surgery (SDC) | payer MEDICARE ==
[2020-10-09 15:07] VITALS: BMI 32.1
[2020-10-13 10:30] VITALS: TEMP 98
[2020-10-13 10:40] LABS: Glucose,Whole Blood 124 mg/dL (75-99)
[2020-10-13] MEDS ORDERED: MIDAZOLAM 2 MG/2 ML VIAL ONE (10:42)
[2020-10-13] MEDS ORDERED: fentaNYL (PF) 50 MCG/ML 2 ML AMP ONE (10:42)
[2020-10-13] MEDS ORDERED: LACTATED RINGERS 1,000 ML IV ONE (10:42)
[2020-10-13] MEDS ORDERED: ROPIVACAINE 5MG/ML 20ML VIAL ONE (10:42)
[2020-10-13] MEDS ORDERED: methylPREDNISolone ACETATE 40 MG/ML 1 ML VIAL ONE (10:42)
[2020-10-13] MEDS ORDERED: IOPAMIDOL M200 10 ML VIAL ONE (10:42)
[2020-10-13] MEDS ORDERED: LIDOCAINE 1% (10MG/ML) FOR IV START INTRADERMA ONE (10:42)
--- NOTE | 2020-10-13 11:02 | P.PCN ---
Date of Procedure: 10/13/20 Description of Procedure: PREOPERATIVE DIAGNOSIS : Lumbar spondylosis with Facet Arthropathy without myelopathy POSTOPERATIVE DIAGNOSIS: same PROCEDURE: first Diagnostic lumbar medial branch block with fluoroscopy at L3, L4, L5 [bilateral] which covers facets L4-5 and L5-S1 ANESTHESIA: Local anesthetic; moderate IV sedation with Versed [] mg, sedation time [] Fluoroscopy was used for the procedure and images were saved in the radiology portion of the chart. Surgeon: Carlos Nunn MD PROCEDURE INDICATION: Lumbar back pain without radiculopathy, not responsive to conservative management. PROCEDURE DESCRIPTION: the patient was seen and identified in the preop holding area , risks and benefits and possible complications of the procedure and alternatives were discussed with the patient, and the patient agreed to proceed with the procedure and signed the consent . IV was started , vital signs were monitored during the procedure and fluoroscopy was used to maximize the benefit and accuracy of the needle placement, and sedation was given to decrease patient anxiety. Patient was taken to the procedure room and placed in prone position. The lumbar region was prepped using chlorhexidineX-2. Under strict sterile technique using AP fluoroscopy the bilateral sacral ala were identified and using ipsilateral oblique fluoroscopy ,the junction of the transverse process and the superior articulating process of the L4, L5 vertebra which corresponds to the fluoroscopy image of the eye of the Alhaji dog for the medial branches were identified. Subsequently, after local infiltration of skin with lidocaine 1% 0.2 mL at each level , a 25-gauge 3.5" Quincke-type needle was placed at the junction of the base of the transverse process and the superior articular process at the appropriate level as well as the sacral ala, and the needle was advanced until the periosteum contacted, needle placement confirmed with AP and oblique fluoroscopy, 0.2 mL of Isovue 200 per level was injected which revealed no vascular uptake and after negative aspiration, 1 mL bupivacaine 0.5% with 40 mg total depomedrol was injected at each site (6 mL total was used, 40 mg of depomedrol total was used). was injected at each level and the needle subsequently removed . At the end of the procedure and the needles were removed and a bandage applied after the skin was cleaned. The patient was taken to recovery room in stable condition and monitors in the recovery room for 20-30 minutes and discharged home in stable condition after discharge criteria met and patient will follow up for repeat procedure in 2 weeks EBL: Minimal COMPLICATION: None.
[2020-10-13] MEDS ORDERED: IV FLUID CONTINUATION 1,000 ML IV ONE (11:07)
[2020-10-13 11:09] VITALS: RESP 18
[2020-10-13 11:26] VITALS: BP 137/78; PULSE 67
--- NOTE | 2020-10-13 11:45 | FL ---
EXAMINATION TYPE: FL guided pain mgmt statistic DATE OF EXAM: 10/13/2020 HISTORY: Fluoroscopy time 10 seconds of fluoroscopy provided. IMPRESSION: 1. Fluoroscopy time.
== END 2020-10-13 11:41 | disposition home or self-care (01) ==
LOC: ORPAIN 10:09
PROVIDERS: ATTEND Anesthesiology
DX: M47.816 Spondylosis without myelopathy or radiculopathy, lumbar region (principal); E11.9 Type 2 diabetes mellitus without complications; Z79.82 Long term (current) use of aspirin; Z88.8 Allergy status to other drugs, medicaments and biological substances
CPT/HCPCS: 64493; 64494; J2250; J1030; J3010; Q9966; J2795; 99152

== ENCOUNTER 2020-10-30 11:25 | Day surgery (SDC) | payer MEDICARE ==
[2020-10-29 12:55] VITALS: BMI 32.1
[~2020-10-30 11:25] MED LIST changes: +HYDROmorphone 0.5 MG/0.5 ML SYRINGE IVP PRN; +MIDAZOLAM 2 MG/2 ML VIAL IV PRN
[2020-10-30 12:02] LABS: Glucose,Whole Blood 108 mg/dL (75-99)
[2020-10-30 12:10] VITALS: RESP 16; TEMP 98.1
[2020-10-30] MEDS ORDERED: LACTATED RINGERS 1,000 ML IV ONE (12:10)
[2020-10-30] MEDS ORDERED: MIDAZOLAM 2 MG/2 ML VIAL ONE (12:50)
[2020-10-30] MEDS ORDERED: ROPIVACAINE 5MG/ML 20ML VIAL ONE (12:50)
[2020-10-30] MEDS ORDERED: fentaNYL (PF) 50 MCG/ML 2 ML AMP ONE (12:50)
[2020-10-30] MEDS ORDERED: methylPREDNISolone ACETATE 40 MG/ML 1 ML VIAL ONE (12:50)
--- NOTE | 2020-10-30 13:07 | P.PCN ---
Date of Procedure: 10/30/20 Procedure(s) Performed: PREOPERATIVE DIAGNOSIS : 1- Lumbar spondylosis with Facet Arthropathy without myelopathy . POSTOPERATIVE DIAGNOSIS: 1- Lumbar spondylosis with Facet Arthropathy without myelopathy . PROCEDURE: Diagnostic bilateral L3 , L4 , and L5 medial branch block under fluoroscopy guidance(fluoroscopy images available in the radiology Department ) ( To target the facet joint between bilateral L4-5 , and L5-S1 ) #2nd ANESTHESIA:, Monitored anesthesia care, as per anesthesia department. EBL: Minimal COMPLICATION: None PROCEDURE INDICATION: Chronic low back pain secondary to Facet arthropathy unresponsive to conservative treatment. PROCEDURE DESCRIPTION: the patient was seen and identified in the preop holding area , risks and benefits and possible complications of the procedure and alternative were discussed with the patient, and the patient agreed to proceed with the procedure and signed the consent and vital signs monitored during the procedure and fluoroscopy was used to maximize the benefit and accuracy of the needle placement, and sedation was given to decrease patient anxiety, patient was taken to the procedure room and placed in prone position vital signs monitored in the back prepped with chlorhexidine X3 then under strict sterile technique using a right oblique fluoroscopy ,the junction of the transverse process and the superior articulating process of the right L3 , L4 , and L5 vertebra which corresponding to the fluoroscopy image of the eye of the Alhaji dog on the block side for the medial branches and subsequently , after local infiltration of skin and subcu tissuies with Ropivacaine 0.5 % , one mL at each level ,then 22-gauge Quincke-type needles , 3 needle was used , each one of them placed at the junction of the base of the transverse process and the superior articular process at the appropriate level, and the needle was advanced until the periosteum contacted, needle placement confirmed with AP oblique and lateral view and after appropriate needle placement confirmed, and after negative aspiration for heme and CSF and there was no paresthesia 1-1/2 mL of Ropivacaine 0.5% mixed with 20 mg Depo-Medrol , then half mL injected at each level after negative aspiration the needle subsequently removed and the same procedure repeated for the left side at left side at L3 , L4 and L5 levels. At the end of the procedure and the needles removed and a bandage applied after the skin was cleaned the cleaning solution patient taken to recovery room in stable condition and monitors in the recovery room for 20-30 minutes and discharged home in stable condition after discharge criteria met and patient will follow up with the pain clinic in 2-4 weeks
[2020-10-30] MEDS ORDERED: IV FLUID CONTINUATION 1,000 ML IV ONE (13:11)
[2020-10-30 13:15] LABS: Glucose,Whole Blood 95 mg/dL (75-99)
[2020-10-30 13:50] VITALS: BP 145/84; PULSE 90
--- NOTE | 2020-10-30 14:34 | FL ---
Fluoroscopy HISTORY: Pain 10 seconds fluoroscopy time supplied to the referring clinician. 3 intraoperative C-arm images docum ent the procedure. See dictated report from anesthesia.
== END 2020-10-30 14:09 | disposition home or self-care (01) ==
LOC: ORPAIN 11:25
PROVIDERS: ATTEND Specialist
DX: G89.29 Other chronic pain (principal); M47.816 Spondylosis without myelopathy or radiculopathy, lumbar region; I25.10 Atherosclerotic heart disease of native coronary artery without angina pectoris; I10 Essential (primary) hypertension; E78.5 Hyperlipidemia, unspecified; E11.9 Type 2 diabetes mellitus without complications; Z88.7 Allergy status to serum and vaccine; Z95.1 Presence of aortocoronary bypass graft; Z79.82 Long term (current) use of aspirin; Z79.891 Long term (current) use of opiate analgesic; Z79.84 Long term (current) use of oral hypoglycemic drugs; Z79.899 Other long term (current) drug therapy; Z91.012 Allergy to eggs; Z91.09 Other allergy status, other than to drugs and biological substances
CPT/HCPCS: 64493; 64494; J2250; J1030; J3010; J2795

== ENCOUNTER → 2020-11-18 | Outpatient (CLI) | payer MEDICARE ==
[2020-11-18 14:13] VITALS: BP 121/77; PULSE 95; RESP 16; TEMP 98.1
--- NOTE | 2020-11-18 14:31 | P.PN ---
Subjective Progress Note Date: 11/18/20 This is a follow-up visit for this 74 years old male with a history of severe low back pain, is diagnosed with lumbar spondylosis, recently we did diagnostic medial branch block lumbar area at L3, L4, L5 X2 . She reported that she got 100% improvement of his low back pain after each diagnostic medial branch block, his VAS before the first block was 10 over 10, dropped to 0 after the block and he gets similar result after the second injection, the pain relief after each block was for short-term,, he denies any fever or night sweats he denies any change in bowel movement or urination, is able to ambulate on his own. Objective - Vital Signs Vital signs: Vital Signs Temp 98.1 F 11/18/20 14:10 Pulse 95 11/18/20 14:10 Resp 16 11/18/20 14:10 BP 121/77 11/18/20 14:10 Pulse Ox 98 11/18/20 14:10 - Exam -Constitutiona : Cooperative , not in acute distress . -HEENT : nech : supple , no Lymphadenopathy , normal thyroid size . : eyes : no ptosis , no icterus, no photophobia . - neurologic : Cranial nerve II to XII intact , no focal neurological deffecit . -psychatric : alert , oriented X 3 , appropriate affect , intact judgment and insight . -Lymphatic : no Lymphadenopathy . - musculoskeltal : Cervical Spine motor stregnth in the deltoid and biceps, normal right side , normal Left side motor stregnth biceps and the wrist extensors normal right side ,normal left side . motor stregnth in the triceps muscle . normal Right side , normal Left side deep tendon reflexes normal at the biceps , normal at Brachioradialis , normal at triceps. Lumber spine moter stegnth lower extremities ,thigh and legs 5/5 Right side , 5/5 Left side deep tendon reflexes : normal Knee Jerk , normal ankle Jerk lumber facet Loading Test =positive Right , positive Left Range of motion of the lumbar spine Flexion 30 degrees, extension 10 degrees strait leg raising test = positive at 30 degree Fabere test= positive Right , and positive LT . Sever tenderness over the Sacroiliac joint on the Right , and Left sides MRI of the lumbar spine done at [facility] 09/01/2020= L4 5. Changes and lumbar facet arthropathy L5-S1 lumbar facet arthropathy Assessment and Plan Plan: Assessment and plan= -lumbar degenerative disc disease -lumbar spondylosis with lumbar facet arthropathy. Patient had 100% improvement in his low back pain after diagnostic medial branch block Patient will be scheduled to have RFA medial branch block lumbar area at L3, L4, L5, bilaterally .(facet L4-5 ,L5-S1 ) - PQRS measures = - Patient's medications are documented in the chart. -Tobacco use is positive/negative and counseling.Given. -Patient's has not received pneumococcal vaccine. -Advanced care planning discussed, patient not eligible. -Opiate contract not signed. -Pain positive and follow-up visit/procedure is scheduled. -Patient's blood pressure measured [ 121/77 ] , and documented in the record ,and patient will follow up with the primary care. -Patient's weight was measured and body mass index [32.1 ] above the normal limits and counseling was done. and patient instructed to follow-up with the primary care physician. -Patient was not identified as an unhealthy alcohol user Time with Patient: Less than 30
== END | disposition home or self-care (01) ==
LOC: PNWHC3 13:43
PROVIDERS: ATTEND Specialist
DX: M51.36 Other intervertebral disc degeneration, lumbar region (principal); M47.816 Spondylosis without myelopathy or radiculopathy, lumbar region
CPT/HCPCS: 99211

== ENCOUNTER 2020-11-27 08:21 | Day surgery (SDC) | payer MEDICARE ==
[2020-11-25 14:21] VITALS: BMI 32.1
[2020-11-27 08:49] VITALS: RESP 16; TEMP 97.2
[2020-11-27] MEDS ORDERED: LACTATED RINGERS 1,000 ML IV ONE (08:56)
[2020-11-27 08:58] LABS: Glucose,Whole Blood 169 mg/dL (75-99)
[2020-11-27] MEDS ORDERED: methylPREDNISolone ACETATE 40 MG/ML 1 ML VIAL ONE (09:13)
[2020-11-27] MEDS ORDERED: fentaNYL (PF) 50 MCG/ML 2 ML AMP ONE (09:13)
[2020-11-27] MEDS ORDERED: MIDAZOLAM 2 MG/2 ML VIAL ONE (09:13)
[2020-11-27] MEDS ORDERED: ROPIVACAINE 5MG/ML 20ML VIAL ONE (09:13)
--- NOTE | 2020-11-27 09:41 | P.PCN ---
Date of Procedure: 11/27/20 Procedure(s) Performed: PREOPERATIVE DIAGNOSIS: 1-Lumbar Spondylosis with Facet Arthropathy without myelopathy. 2- Lumber degenerative disc disease. POSTOPERATIVE DIAGNOSIS: 1- Lumbar Spondylosis with Facet Arthropathy without myelopathy. 2- Lumber degenerative disc disease. PROCEDURES : Bilateral Radiofrequency thermocoagulation, L3 , L4 , and L5 medial branch, with fluoroscopic guidance (fluoroscopy images available in the radiology department) ( to denervate the facet joint at L4-5 ,and L5-S1 levels ). ANESTHESIA: monitered anesthesia care as per anesthesia department . EBL: Minimal PROCEDURE INDICATION: The patient with low back pain secondary to lumbar facet arthropathy who had more than 50% relief of her pain with previous diagnostic lumbar medial branch block with bupivacaine. PROCEDURE DESCRIPTION / TECHNIQUE: The patient was seen and identified in the preoperative area. Risks, benefits, complications, including but not limited to risk of infection ,bleeding , allergic reactions to the medications and no complete pain releife , and alternatives were discussed with the patient, the patient agreed to proceed with the procedure and signed the consent. IV was started. Vital signs remained stable throughout the procedure. Patient was taken to the OR and time out was completed. The patient was placed in the prone position on the procedure table. The lumber area was prepped and draped in the usual sterile fashion. . Vital signs were closely monitored during the procedure .IV sedation was used during the procedure to decrease patients anxiety. Using AP and then oblique fluoroscopy, the ``eye of the Alhaji dog correspond ing to the connection between the superior and transverse articular processes of right L3, L4, and L5 were identified, marked, and localized with 1% lidocaine. Subsequently, a 18 [id number] radiofrequency cannula with a 10-mm active tip was advanced guided by fluoroscopy to each of the``eyes of the Alhaji dog at right L3, L4, and L5. Each site then underwent sensory testing at 50 Hz and 0 to 1 volt and motor testing at 2.5 Hz and 0 to 3 volt with local stimulation, but no radicular symptoms down the legs. Thereafter each sites underwent radiofrequency thermocoagulation at 80 degrees celsius for 90 seconds after injecting 0.5 ml of PF Ropivacaine 1ml, then after the thermocoagulation done , 1 ml of the block solution containing Depo-Medrol 20 mg and 3 ml of Ropivacaine 0.5% was injected at the right L3 , L4 , and L5 , levels after negative aspiration of CSF and blood and with no paresthesias. Cannulas were retracted while injecting lidocaine 1% until the needle is out. The same procedure was repeated at the level of Left L3, L4, and L5 levels. At the end of the procedure, the skin was cleansed and bandages were applied. COMPLICATIONS: No acute complications. DISPOSITION / PLANS: The patient was placed in a supine position and transferred to the recovery area in a stable condition for observation and was discharged from the recovery room after meeting discharge criteria. Home discharge instructions given to the patient by the staff. The patient was reexamined prior to discharge. The patient will schedule a follow up in the clinic in 2-4 weeks.
[2020-11-27] MEDS ORDERED: IV FLUID CONTINUATION 1,000 ML IV ONE (09:47)
[2020-11-27 10:04] VITALS: BP 130/71; PULSE 70
--- NOTE | 2020-11-27 10:39 | FL ---
Fluoroscopy HISTORY: Pain 26 seconds fluoroscopy time supplied to the referring clinician. 7 intraoperative C-arm images docum ent the procedure. See dictated report from anesthesia.
== END 2020-11-27 10:25 | disposition home or self-care (01) ==
LOC: ORPAIN 08:21
PROVIDERS: ATTEND Specialist
DX: M47.816 Spondylosis without myelopathy or radiculopathy, lumbar region (principal); M51.36 Other intervertebral disc degeneration, lumbar region; I25.10 Atherosclerotic heart disease of native coronary artery without angina pectoris; I10 Essential (primary) hypertension; E78.5 Hyperlipidemia, unspecified; E11.9 Type 2 diabetes mellitus without complications; Z91.012 Allergy to eggs; Z91.048 Other nonmedicinal substance allergy status; Z95.1 Presence of aortocoronary bypass graft; Z79.82 Long term (current) use of aspirin; Z79.84 Long term (current) use of oral hypoglycemic drugs; Z79.899 Other long term (current) drug therapy
CPT/HCPCS: 64635; 64636; J2250; J1030; J3010; J2795

== ENCOUNTER → 2020-12-14 | Outpatient (CLI) | payer MEDICARE ==
[2020-12-14 13:23] VITALS: BP 142/80; PULSE 94; RESP 16; TEMP 98.1
--- NOTE | 2020-12-14 13:33 | P.PN ---
Subjective Progress Note Date: 12/14/20 This is a 74-year-old gentleman with history of chronic lower back and neck pain. The patient had lumbar medial branch RFA lately which gave him 100% of pain relief. The patient is very happy with the results. Of note had lumbar and cervical fusions previously. Patient denies new-onset weakness, bowel/bladder incontinence, or any other signs or symptoms of cauda equina syndrome. There are no signs of acute intoxication, and no indications of medication diversion or overuse. In addition to above, 13-point review of systems is also negative for chest pain, shortness of breath, changes in vision, changes in hearing, new onset weakness, abdominal pain, diarrhea, extreme fatigue, malaise, fever, skin changes, homicidal or suicidal ideation, or bowel or bladder incontinence. 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 Explanation: Opioid and psychological risk scores were reviewed. Diagnoses, prognoses, and multiple treatment options including but not limited to physical therapy, interventional therapies, adjuvant medical therapies, narcotic medication therapies, and surgery were discussed with the patient and all questions were answered to the patient's satisfaction. 2. Opioid agreement: Signed with the patient and the patient is warned not to use opioids while driving or before driving and not to combine opioids with benzodiazepines or alcohol. 3. Counseling: The patient was counseled extensively on SMOKING CESSATION, BODY MASS INDEX, EXERCISE. Specifically, the patient was instructed regarding the importance of smoking cessation, obesity, and exercise in the context of both chronic pain and overall health. 4. Procedures: none 5. Consultations: None 6. Investigations: None 7. Medications: None 8. Disposition: Return to clinic as needed 9. Maps were reviewed and were appropriate. Objective - Vital Signs Vital signs: Vital Signs Temp 98.1 F 12/14/20 13:22 Pulse 94 03/22/21 13:22 Resp 16 12/14/20 13:22 BP 142/80 12/14/20 13:22 Pulse Ox 97 12/14/20 13:22
== END | disposition home or self-care (01) ==
LOC: PNWHC3 13:11
PROVIDERS: ATTEND Anesthesiology
DX: M51.36 Other intervertebral disc degeneration, lumbar region (principal); M47.816 Spondylosis without myelopathy or radiculopathy, lumbar region; G89.18 Other acute postprocedural pain
CPT/HCPCS: 99211

== ENCOUNTER → 2021-03-25 | Outpatient (CLI) | payer MEDICARE ==
--- NOTE | 2021-03-25 21:19 | SFUN ---
SLEEP CENTER FOLLOW UP NOTE DATE OF SERVICE: 03/25/2021 75-year-old gentleman has been followed in Sleep Center for treatment of obstructive sleep apnea-hypopnea syndrome. Patient continued to use his CPAP equipment every night. Sleeps well and does not snore, feels better during the day. [place] Sleepiness Scale today is 8. During the previous visits was 15. I checked CPAP unit. CPAP pressure is 6 cm of water. Usage is 30/30 nights and 26/30 nights for more than 4 hours, average 5.7 hours per night. Leak is 17 L/minute, which is borderline. Apnea-hypopnea index is only 0.4, which is perfect. This is a ResMed unit. MEDICATIONS: Lisinopril hydrochlorothiazide 20/25 mg once a day, atorvastatin 20 mg once a day, allopurinol 300 mg once a day, cyclobenzaprine 5 mg 2 tablets twice a day. PHYSICAL EXAMINATION: GENERAL: Patient in no distress. BP 138/73, HR 74, RR 15, height 5 feet 10 inches, weight 228. Patient lost about 7 pounds since previous visit. Body mass index 32.7, temperature 97.8, oxygen saturation at room air 99%. HEENT: Oropharynx low position of soft palate. NECK: Supple, no JVD. Thyroid is not palpable. LUNGS: Clear to percussion and to auscultation. Good air exchange. No wheezing or rhonchi. HEART: S1, S2 regular. No murmurs, gallops, or rubs. ABDOMEN: Obese. Soft and nontender. Bowel sounds are present. No organomegaly appreciated. EXTREMITIES: No clubbing or cyanosis. 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 Cranial nerves 2 to 7 intact. There is no fasciculation or atrophy. noted. No focal deficits observed. IMPRESSION: 1. Obstructive sleep apnea-hypopnea syndrome. Patient demonstrated practically 100% compliance with treatment benefitting from treatment. 2. Coronary artery disease, status post coronary artery bypass grafting. 3. Obesity, patient lost about 7 pounds since previous visit. 4. Hypertension. 5. Periodic limb movements during the sleep study. No complaints of leg movements at night. 6. History of diabetes mellitus. 7. History of increased eye pressure. According to the patient monitoring of eye pressure is okay. He is not on any eyedrops. 8. History of Meniere disease. 9. History of broken neck. 10.History of broken back. PLAN: 1. Patient will continue to use PAP equipment every night for the whole night. 2. Sleep hygiene with regular time in bed for at least 7-1/2 to 8 hours. 3. Precautions related to driving. No driving if feeling sleepiness. 4. I will maintain all necessary prescription for PAP supplies including mask, tube, filters. 5. Watching weight. 6. Follow-up visit in 6 months or earlier if patient has any problems. Thank you very much for allowing me to participate in management of your patient. Sincerely, Pierre Birmingham MD, PhD, FAASM Diplomat of [employer] Iron Launder Operator of [facility] [place] MMODL / FELISHAN: [id number] /
== END ==
LOC: SLEEP 10:32
PROVIDERS: ATTEND Internal Medicine
DX: G47.33 Obstructive sleep apnea (adult) (pediatric) (principal); I25.10 Atherosclerotic heart disease of native coronary artery without angina pectoris; E66.9 Obesity, unspecified; I10 Essential (primary) hypertension; G47.61 Periodic limb movement disorder; E11.9 Type 2 diabetes mellitus without complications; Z95.1 Presence of aortocoronary bypass graft; Z87.81 Personal history of (healed) traumatic fracture; Z86.69 Personal history of other diseases of the nervous system and sense organs; Z79.899 Other long term (current) drug therapy; Z68.32 Body mass index [BMI] 32.0-32.9, adult; Z91.048 Other nonmedicinal substance allergy status; Z91.018 Allergy to other foods; Z88.7 Allergy status to serum and vaccine; Z91.012 Allergy to eggs; Z91.011 Allergy to milk products; Z87.891 Personal history of nicotine dependence

== ENCOUNTER → 2021-06-07 | Outpatient (CLI) | payer MEDICARE ==
[2021-06-07 12:23] VITALS: BP 147/74; PULSE 85; RESP 18; TEMP 98
--- NOTE | 2021-06-07 12:42 | P.PN ---
Subjective Progress Note Date: 06/07/21 This is a follow-up visit for this 74 years old male with a history of severe neck pain, radiation to the upper extremity his diagnosis with cervical radiculopathy and cervical spondylosis with cervical facet arthropathy,more than 6 months ago we have done cervical epidural steroid injection x2 , and that provided him with more than 80% improvement of his neck pain and the pain relief lasted for more than 6 months , activity improved significantly after the epidural steroid injection , the pain is constant and increases with any activity interference with her quality of life, he continue to use Ultram 50 mg 3 times a day and Flexeril 10 mg twice a day he denies any side effect of the medication, patient had lumbar laminectomy and fusion surgery, done several years ago, and he continued to have low back pain after the surgery, he denies any fever or night sweats he denies any change in bowel movement or urination, is able to ambulate on his own, patient had tried chiropractics in the past without any benefit, Objective - Vital Signs Vital signs: Vital Signs Temp 98.0 F 06/07/21 12:20 Pulse 85 06/07/21 12:20 Resp 18 06/07/21 12:20 BP 147/74 06/07/21 12:20 Pulse Ox 98 06/07/21 12:20 - Exam Physical Examinations : -Constitutiona : Cooperative , not in acute distress . -HEENT : nech : supple , no Lymphadenopathy , normal thyroid size . : eyes : no ptosis , no icterus, no photophobia . - neurologic : Cranial nerve II to XII intact , no focal neurological deffecit . -psychatric : alert , oriented X 3 , appropriate affect , intact judgment and insight . -Lymphatic : no Lymphadenopathy . - musculoskeltal : Cervical Spine motor stregnth in the deltoid and biceps, normal right side , normal Left side motor stregnth biceps and the wrist extensors normal right side ,normal left side . motor stregnth in the triceps muscle . normal Right side , normal Left side deep tendon reflexes normal at the biceps , normal at Brachioradialis , normal at triceps. cervical facet loading test: Positive Bilaterally Spurling test= positive Right , positive left. Neck distraction test= positive Right , positive left. Scooby sign= positive right, positive left . Lumber spine moter stegnth lower extremities ,thigh and legs 5/5 Right side , 5/5 Left side Assessment and Plan Plan: Assessment and plan=1- cervical radiculopathy. 2-cervical degenerative disc disease. 3-cervical spondylosis with cervical facet arthropath 4-lumbar degenerative disc disease 5 -lumbar spondylosis with lumbar facet arthropathy. Patient had 80% improvement of his neck pain after previous epidural steroid injection and he will be good candidate to have a repeat cervical epidural steroid injection at C6 7 or C7-T1 that the earliest convenient for the patient - PQRS measures = - Patient's medications are documented in the chart. -Tobacco use is negative and counseling.Given. -Patient's has not received pneumococcal vaccine. -Advanced care planning discussed, patient not eligible. -Opiate contract not signed. -Pain positive and follow-up visit/procedure is scheduled. -Patient's blood pressure measured [ 147/74] , and documented in the record ,and patient will follow up with the primary care. -Patient's weight was measured and body mass index [32.1 ] above the normal limits and counseling was done. and patient instructed to follow-up with the primary care physician. -Patient was not identified as an unhealthy alcohol user Time with Patient: Less than 30
== END | disposition home or self-care (01) ==
LOC: PNWHC3 12:14
PROVIDERS: ATTEND Specialist
DX: M50.10 Cervical disc disorder with radiculopathy, unspecified cervical region (principal); M47.896 Other spondylosis, lumbar region; M51.36 Other intervertebral disc degeneration, lumbar region
CPT/HCPCS: 99211

== ENCOUNTER 2021-07-06 07:54 | Day surgery (SDC) | payer MEDICARE ==
[2021-07-05 12:17] VITALS: BMI 32.1
[2021-07-06 08:17] VITALS: TEMP 97.4
[2021-07-06 08:30] LABS: Glucose,Whole Blood 204 mg/dL (75-99)
[2021-07-06] MEDS: LACTATED RINGERS 1,000 ML IV SCH ×2 (08:31→08:32)
[2021-07-06] MEDS ORDERED: MIDAZOLAM 2 MG/2 ML VIAL ONE (08:33)
[2021-07-06] MEDS ORDERED: fentaNYL (PF) 50 MCG/ML 2 ML AMP ONE (08:33)
[2021-07-06] MEDS ORDERED: IOPAMIDOL M200 10 ML VIAL ONE (08:33)
[2021-07-06] MEDS ORDERED: DEXAMETHASONE SOD PHOSPHATE 10 MG/ML 1 ML VIAL ONE (08:33)
[2021-07-06] MEDS ORDERED: LACTATED RINGERS 1,000 ML IV SCH (08:45)
--- NOTE | 2021-07-06 08:48 | P.PCN ---
Date of Procedure: 07/06/21 Description of Procedure: Pre- and Post-operative Diagnosis: Cervical radiculopathy Procedure: C7-T1 Inter-Laminar Cervical Epidural Steroid Injection under biplanar fluoroscopy #2 Surgeon: Thad Trinidad Anesthesia: Local: 1% Lidocaine, IV sedation : Versed, and fentanyl. Complications: None. Estimated blood loss: None Specimens removed: None Fluoroscopic image: saved to electronic medical records. Indications for Procedure: The patient has been suffering from neck pain and pain radiating to the upper extremity . Patient had good pain relief with the previous epidural steroid injection , which helped his pain radiating to his upper extremities. Inadequate pain control with pharmacologic regimen. Repeat inter-laminar approach cervical epidural steroid injection was scheduled for the patient. Procedure and Findings: The patient was seen and examined in the holding area. The written informed consent was obtained after explaining the risks, benefits, alternatives of the procedure to the patient. The patient was brought to the procedure room and was placed in the prone position on the operating table. A pillow was placed under the upper chest. Standard anesthesia monitoring was done through out the procedure. Timeout was completed. The skin preparation was done with ChloraPrep 1 and draping was done in usual sterile fashion. Sterile technique was observed throughout the procedure. Under fluoroscopic guidance, the C7-T1 inter-laminar space was identified. 3 ml of 1% Lidocaine was injected with a 25 gauge needle to achieve adequate local anesthesia of the skin and subcutaneous tissue. A 20 gauge, 3.5 inch Tuohy type epidural needle was placed and gradually advanced up to the epidural space using loss of resistance technique and fluoroscopic guidance. Lateral, oblique fluoroscopic views confirm the needle position. No paresthesia was noted. A negative aspiration was confirmed and then 1 ml of Isovue-200 was injected. A good dye spread was seen in the epidural space and it was negative for any intrathecal, intraneural or intravascular spread. A total of 6 ml solution containing 10 mg Dexamethasone, and 5 ml preservative-free Normal Saline was injected slowly with intermittent aspiration. The needle was removed intact, area was cleaned and bandage was applied. Disposition : The patient tolerated the procedure very well. The patient was transferred to the recovery room and remained stable until discharged home. The patient was given detailed discharge instructions for bleeding, infection, increased pain at the injection site, and was advised to seek immediate medical attention should significant side effects develop. The patient will be followed up with our Pain Clinic within 4 weeks for follow-up visit.
[2021-07-06] MEDS ORDERED: IV FLUID CONTINUATION 1,000 ML IV ONE ×2 (08:55)
[2021-07-06 08:57] LABS: Glucose,Whole Blood 176 mg/dL (75-99)
[2021-07-06 09:24] VITALS: RESP 16
[2021-07-06 09:25] VITALS: BP 128/74; PULSE 68
--- NOTE | 2021-07-06 11:44 | FL ---
Fluoroscopy HISTORY: Pain 6 seconds fluoroscopy time supplied to the referring clinician. 2 intraoperative C-arm images docume nt the procedure. See dictated report from anesthesia.
== END 2021-07-06 09:49 | disposition home or self-care (01) ==
LOC: ORPAIN 07:54
DX: M54.12 Radiculopathy, cervical region (principal)
CPT/HCPCS: 62321; J2250; J1100; J3010; Q9966; 99152

== ENCOUNTER → 2021-07-19 | Outpatient (CLI) | payer MEDICARE ==
[2021-07-19 13:35] VITALS: BP 137/81; PULSE 81; RESP 18; TEMP 98.1
--- NOTE | 2021-07-19 14:13 | P.PAINPG ---
Subjective Progress Note Date: 07/19/21 Principal diagnosis: Neck pain, and lumbar back pain Mr. Pierson is a 75 year old pleasant male patient came to [facility] pain management clinic for follow-up after cervical epidural injection. Patient described pain started many years ago. Patient had cervical epidural steroid injection done multiple times. Patient had cervical epidural on 06/07/2021 and 07/06/2021. Both of them helped in controlling his pain more than 60% for 3 weeks duration, then his pain is gradually coming back. But after epidural injection patient can able to sleep better, able to perform his activities at home without difficulty, his numbness and tingling sensation in his upper extremities improved after intervention procedure. Patient described pain as aching, sharp, throbbing type of pain. Patient rated pain 5 out of 10 in severity. Which may very her pain level from 4-8 out of 10 in severity. Pain increases with activities, turning , standing, walking, sitting, bending forward, and lifting. Pain decreases with intervention procedure and medicatio ns. Overall patient activities decreased secondary to pain. Pain medications helping to some extent. Because of the pain patient is feeling lack of sleep and interest and energy. Denied any bowel or bladder problems. Patient denies any adverse effects to medications. Not using any walking aids for walking. Patient denied any suicidal / homicidal tendency at this time. There are no signs of narcotic diversion/misuse/overuse and no new-onset weakness, bowel/bladder incontinence, saddle anesthesia, or no red flag symptoms. Objective - Vital Signs Vital signs: Vital Signs Temp 98.1 F 07/19/21 13:29 Pulse 81 07/19/21 13:29 Resp 18 07/19/21 13:29 BP 137/81 07/19/21 13:29 Pulse Ox 97 07/19/21 13:29 - Exam General: Well-developed, well-nourished, no acute distress HEENT: Normocephalic, and atraumatic Neck: Supple, no neck swelling Psychiatric: Appropriate mood, and affect POT RELINER: No focal neurological deficits Musculoskeletal: Upper extremity: Decreased strength at shoulder area secondary to pain, and decreased range of motion at shoulder area. Sensation grossly intact. Lower extremity: Normal strength, and decreased range of motion secondary to pain Lumbar spine: Paravertebral tenderness: positive Lumbar facet load test : positive Sacroiliac joint tenderness: Positive Thigh thrust test: Not done secondary to pain SI joint compression test: Not done secondary to pain Fabere test: Not done secondary to pain Cervical spine: Paravertebral tenderness: Positive Cervical spine facet sae: Positive Cervical spine Spurling test: Negative Multiple trigger point positive over cervical, and lumbar area - Constitutional Constitutional Comment(s): 10 point review of symptoms negative except as mentioned in the history of present illness Assessment and Plan Assessment: Cervical spondylosis without myelopathy Cervical neural foraminal stenosis Lumbar spondylosis without myelopathy Myofascial pain syndrome, and chronic pain syndrome Plan: #1 Diagnoses, prognosis, and multiple treatment options including but not limited to physical therapy, interventional therapy, adjunct medication therapy, narcotic medication, and surgical options were discussed with the patient. And all questions were answered to the patient's satisfaction. #2 treatment plan agreement : Patient was thoroughly discussed regarding the treatment options, alternatives, and importance of exercises as tolerated. Patient clearly understood. #3 Patient was counseled on importance of regular exercise. Including soraya chi, aerobic exercises as tolerated. Which helps for chronic pain, and overall well- being. #4 investigations: MAPS- reviewed , urine drug test-not done #5 diagnostic tests: None #6 consultation : None # 7 interventional procedures: Cervical C6-C7 or C7-T1 epidural sterile injection. Procedure, complications, alternatives discussed with the patient. #8 medications None from the pain clinic #9 morphine milligrams equivalents dose ( MME) per day: 0. # 10 patient recommended to try percussion massage device #11 disposition: scheduled to follow up with pain clinic in 4 weeks duration. Time with Patient: Less than 30 PQRS Measure Charge Sheet Measure #130: Documentation of Current Meds in Medical Chart: Patient's medications documented in chart Measure #226: Tobacco Use: Screen & Cessation Intervention: Pt not a tobacco user Measure #111: Pneumonia Vaccination: Pneumococcal vaccine administered or previously received Measure #47: Advance Care Plan: Advance care planning discussed & documented, plan or surrogate given Measure #412: Opioid Treatment Agreement: No documentation of signed opioid treatment agreement Measure #408: Opioid Therapy Follow-up Evaluation: Patient had NO f/u eval minimum every 3 months during opioid therapy Measure #317: Preventitive Care & Scrn High Bld Press & F/U: Pre-hypertensive or hypertensive BP documented, pt will f/u with PCP Measure #128: Body Mass Index (BMI) Screening & Follow-up: BMI documented within normal parameters Measure #131: Pain Assessment & Follow-up: Pain positive & plan documented Measure #431: Unhealthy Alcohol Use Preventative Care & Scrn: Patient not identified as an unhealthy alcohol user Mode of Arrival: Ambulatory - Pain Location Lower Back Non-Pharmacological Interventions: Home Exercise, Stretching Pharmacological Interventions: Block, Epidural Neck Non-Pharmacological Interventions: Home Exercise, Stretching Pharmacological Interventions: Epidural, PRN Medication PQRS Narrative: Smoking Status Former smoker Blood Pressure 137/81 Pain Intensity [Neck] 3 Pain Intensity [Lower Back] 3 Scale Used Numeric (1 - 10) Hx Alcohol Use (MH) No Home Medications: Ambulatory Orders Aspirin 325 mg PO DAILY 09/06/17 Lisinopril-Hctz 20-25 mg [Zestoretic 20-25] 1 tab PO QAM 09/06/17 allopurinoL [Zyloprim] 300 mg PO DAILY 09/06/17 Nitroglycerin Sl Tabs [Nitrostat] 0.4 mg SUBLINGUAL Q5M PRN 10/02/17 traMADol HCl [Ultram] 50 mg PO TID PRN 10/02/17 Atorvastatin [Lipitor] 20 mg PO DAILY 06/15/20 Cyclobenzaprine [Flexeril] 10 mg PO BID PRN 06/15/20 Montelukast [Singulair] 10 mg PO DAILY 06/15/20 Cholecalciferol (Vitamin D3) [Vitamin D3] 1 cap PO DAILY 06/17/20 Vitamin B Complex/Folic Acid [B-Complex Tablet] 1 tab PO DAILY 06/17/20 Repaglinide [Prandin] 1 mg PO BID 11/25/20 Finasteride [Proscar] 5 mg PO DAILY 07/05/21 Controlled Substance Measures - Controlled Substance Measures Is patient prescribed a controlled substance at discharge?: No
== END | disposition home or self-care (01) ==
LOC: PNWHC3 12:45
DX: M47.892 Other spondylosis, cervical region (principal); M48.02 Spinal stenosis, cervical region; M47.896 Other spondylosis, lumbar region; M79.18 Myalgia, other site
CPT/HCPCS: 99211

== ENCOUNTER 2021-08-31 07:43 | Day surgery (SDC) | payer MEDICARE ==
[2021-08-30 10:18] VITALS: BMI 30.2
[~2021-08-31 07:43] MED LIST changes: -HYDROmorphone 0.5 MG/0.5 ML SYRINGE IVP PRN; -MIDAZOLAM 2 MG/2 ML VIAL IV PRN
[2021-08-31 08:11] LABS: Glucose,Whole Blood 151 mg/dL (75-99)
[2021-08-31 08:14] VITALS: TEMP 97.6
[2021-08-31] MEDS ORDERED: .fentaNYL (PF) 50 MCG/ML 2 ML AMP ONE (08:14)
[2021-08-31] MEDS ORDERED: MIDAZOLAM 2 MG/2 ML VIAL ONE (08:14)
[2021-08-31] MEDS ORDERED: DEXAMETHASONE SOD PHOSPHATE 10 MG/ML 1 ML VIAL ONE (08:14)
[2021-08-31] MEDS ORDERED: IOPAMIDOL M200 10 ML VIAL ONE (08:14)
--- NOTE | 2021-08-31 08:27 | P.PCN ---
Date of Procedure: 08/31/21 Procedure(s) Performed: . PROCEDURE 1. Cervical epidural steroid injection under fluoroscopic guidance, C6-7 (fluoroscopy images available in the radiology department ) 2. Cervical epidurogram. PREOPERATIVE DIAGNOSIS: 1- Cervical Degenerative Disc Diseases 2- Cervical radiculopathy., 3-cervical spondylosis with cervical Facet arthropathy without myelopathy POSTOPERATIVE DIAGNOSIS: : 1- Cervical Degenerative Disc Diseases , 2- Cervical radiculopathy. 3-,cervical spondylosis with cervical Facet arthropathy without myelopathy ANESTHESIA: Local anesthesia with lidocaine 1 % , and moderate sedation, with Versed 2 mg and Fentanyl 100 mcg. EBL 0 PROCEDURE INDICATION: The patient with neck pain and radiculitis unresponsive to conservative treatment consents for procedure. PROCEDURE DESCRIPTION / TECHNIQUE: The patient was seen and identified in the preoperative area. Risks, benefits, complications, including but not limited to infections ,bleeding , allergic reactions to the medications ,and not complete pain releife, and alternatives were discussed with the patient, the patient agreed to proceed with the procedure and signed the consent. Patient was taken to the OR and time out was completed. The patient was placed in the prone position on the procedure table. A pillow was placed under the patients chest to increase the cervical interlaminar space. The cervical area was prepped and draped in the usual sterile fashion. Vital signs were closely monitored during the procedure. Conscious sedation was used during the procedure to decrease patients anxiety. Using anterior-posterior fluoroscopy, the C6-7 interlaminar space was identified and the skin over this site was marked and then infiltrated with 1% lidocaine subcutaneously. Subsequently, a 20-gauge 3-1/2-inch Tuohy epidural needle was inserted and advanced toward the epidural space by means of the ``hanging-drop technique and guided by AP and lateral fluoroscopy. The correct needle position in the epidural space was verified with the injection of 2 mL of the water soluble contrast dye Isovue-200 and observing an excellent epidurogram with the epidural spread of the dye, after negative aspiration for blood and CSF and in the absence of paresthesias. then, mixture containing 10 mg Dexamethasone and 2 ml of preservative-free normal saline injected and a washout of epidurogram was seen. Needle was withdrawn intact, skin was cleansed, and bandages were applied. Complications= none. Disposition= patient was placed in supine position and transferred to the recovery room area in stable condition and there was no evidence of upper or lower extremity motor or sensory deficit after the procedure patient was discharged from recovery room after discharge criteria met and home discharge instructions was given by the staff and patient will follow with the pain clinic in 2-4 weeks
[2021-08-31] MEDS ORDERED: IV FLUID CONTINUATION 1,000 ML IV ONE (08:30)
[2021-08-31 08:32] VITALS: PULSE 75; RESP 16
[2021-08-31 08:51] VITALS: BP 113/74
[2021-08-31 08:56] LABS: Glucose,Whole Blood 151 mg/dL (75-99)
--- NOTE | 2021-08-31 09:42 | FL ---
EXAMINATION TYPE: FL guided pain mgmt statistic DATE OF EXAM: 08/31/2021 HISTORY: Fluoroscopy time 4 seconds of fluoroscopy provided. IMPRESSION: 1. Fluoroscopy time.
== END 2021-08-31 09:18 | disposition home or self-care (01) ==
LOC: ORPAIN 07:43
PROVIDERS: ATTEND Specialist
DX: M50.123 Cervical disc disorder at C6-C7 level with radiculopathy (principal); M47.22 Other spondylosis with radiculopathy, cervical region
CPT/HCPCS: 62321; J2250; J1100; J3010; Q9966; 99152

== ENCOUNTER → 2021-09-15 | Outpatient (CLI) | payer MEDICARE ==
--- NOTE | 2021-09-15 09:26 | P.PN ---
Subjective Progress Note Date: 09/15/21 This is a follow-up visit for this 75 years old male with a history of severe neck pain, radiation to the upper extremity,he is diagnosed with cervical radiculopathy , cervical spondylosis with cervical facet arthropathy, cervical foraminal stenosis. Status post cervical epidural steroid injection x2 , and that provided him with more than 60% improvement of his neck pain , activity improved significantly after the epidural steroid injection , he continued to have neck pain and numbness and tingling sedation in the upper extremity the pain is constant and increases with any activity interference with her quality of life, he denies any fever or night sweats he denies any change in bowel movement or urination, is able to ambulate on his own, patient had tried chiropractics in the past without any benefit, Physical Examinations : -Constitutiona : Cooperative , not in acute distress . -HEENT : nech : supple , no Lymphadenopathy , normal thyroid size . : eyes : no ptosis , no icterus, no photophobia . - neurologic : Cranial nerve II to XII intact , no focal neurological deffecit . -psychatric : alert , oriented X 3 , appropriate affect , intact judgment and insight . -Lymphatic : no Lymphadenopathy . - musculoskeltal : Cervical Spine motor stregnth in the deltoid and biceps, normal right side , normal Left side motor stregnth biceps and the wrist extensors normal right side ,normal left side . motor stregnth in the triceps muscle . normal Right side , normal Left side deep tendon reflexes normal at the biceps , normal at Brachioradialis , normal at triceps. cervical facet loading test: Positive Bilaterally Spurling test= positive Right , positive left. Neck distraction test= positive Right , positive left. Scooby sign= positive right, positive left . Lumber spine moter stegnth lower extremities ,thigh and legs 5/5 Right side , 5/5 Left side Assessment and Plan Plan: Assessment and plan=1- cervical radiculopathy. 2-cervical degenerative disc disease. 3-cervical spondylosis with cervical facet arthropath 4-lumbar degenerative disc disease 5 -lumbar spondylosis with lumbar facet arthropathy. he will be good candidate to have a repeat epidural steroid injection at C6-C7 or C7-T1 - PQRS measures = - Patient's medications are documented in the chart. -Tobacco use is negative and counseling.Given. -Patient's has not received pneumococcal vaccine. -Advanced care planning discussed, patient not eligible. -Opiate contract not signed. -Pain positive and follow-up visit/procedure is scheduled. -Patient's blood pressure measured [ 135/79] , and documented in the record ,and patient will follow up with the primary care. -Patient's weight was measured and body mass index [32.1 ] above the normal limits and counseling was done. and patient instructed to follow-up with the primary care physician. -Patient was not identified as an unhealthy alcohol user
[2021-09-15 09:29] VITALS: BP 135/79; PULSE 71; RESP 18
== END | disposition home or self-care (01) ==
LOC: PNWHC3 08:32
PROVIDERS: ATTEND Specialist
DX: M47.896 Other spondylosis, lumbar region (principal); M47.892 Other spondylosis, cervical region; M51.36 Other intervertebral disc degeneration, lumbar region; M50.10 Cervical disc disorder with radiculopathy, unspecified cervical region
CPT/HCPCS: 99211

== ENCOUNTER 2021-10-26 07:46 | Day surgery (SDC) | payer MEDICARE ==
[2021-10-21 14:57] VITALS: BMI 30.7
[2021-10-26 08:23] VITALS: TEMP 97.9
[2021-10-26 08:23] LABS: Glucose,Whole Blood 159 mg/dL (75-99)
[2021-10-26] MEDS ORDERED: MIDAZOLAM 2 MG/2 ML VIAL ONE (09:07)
[2021-10-26] MEDS ORDERED: IOPAMIDOL M200 10 ML VIAL ONE (09:07)
[2021-10-26] MEDS ORDERED: DEXAMETHASONE SOD PHOSPHATE 10 MG/ML 1 ML VIAL ONE (09:07)
[2021-10-26] MEDS ORDERED: fentaNYL (PF) 50 MCG/ML 2 ML AMP ONE (09:07)
[2021-10-26] MEDS ORDERED: LACTATED RINGERS 1,000 ML IV SCH (09:15)
[2021-10-26] MEDS ORDERED: IV FLUID CONTINUATION 500 ML IV ONE (09:38)
[2021-10-26 09:43] VITALS: RESP 16
[2021-10-26 09:53] VITALS: BP 122/72; PULSE 78
--- NOTE | 2021-10-26 10:10 | P.PCN ---
Date of Procedure: 10/26/21 Description of Procedure: Pre- and Post-operative Diagnosis: Cervical radiculopathy Procedure: C6-C7 Inter-Laminar Cervical Epidural Steroid Injection under biplanar fluoroscopy Surgeon: Thad Trinidad Anesthesia: Local: 1% Lidocaine, IV sedation : Versed, and fentanyl. Complications: None. Estimated blood loss: None Specimens removed: None Fluoroscopic image: saved to electronic medical records. Indications for Procedure: The patient has been suffering from neck pain and pain radiating to the upper extremity . Inadequate pain control with pharmacologic regimen. An inter-laminar approach cervical epidural steroid injection was scheduled for the patient. Procedure and Findings: The patient was seen and examined in the holding area. The written informed consent was obtained after explaining the risks, benefits, alternatives of the procedure to the patient. The patient was brought to the procedure room and was placed in the prone position on the operating table. A pillow was placed under the upper chest. Standard anesthesia monitoring was done through out the procedure. Timeout was completed. The skin preparation was done with ChloraPrep 1 and draping was done in usual sterile fashion. Sterile technique was observed throughout the procedure. Under fluoroscopic guidance, the C6-C7 inter-laminar space was identified. 3 ml of 1% Lidocaine was injected with a 25 gauge needle to achieve adequate local anesthesia of the skin and subcutaneous tissue. A 20 gauge, 3.5 inch Tuohy type epidural needle was placed and gradually advanced up to the epidural space using loss of resistance technique and fluoroscopic guidance. Lateral, oblique fluoroscopic views confirm the needle position. No paresthesia was noted. A negative aspiration was confirmed and then 2 ml of Isovue-200 was injected. the dye spread was seen in the epidural space, but not clear, and it was negative for any intrathecal, intraneural or intravascular spread. A total of 5 ml solution containing 10 mg Dexamethasone, and 4 ml preservative-free Normal Sali ne was injected slowly with intermittent aspiration. The needle was removed intact, area was cleaned and bandage was applied. Disposition : The patient tolerated the procedure very well. The patient was transferred to the recovery room and remained stable until discharged home. The patient was given detailed discharge instructions for bleeding, infection, increased pain at the injection site, and was advised to seek immediate medical attention should significant side effects develop. The patient will be followed up with our Pain Clinic within 4 weeks for follow-up visit.
--- NOTE | 2021-10-26 11:06 | FL ---
Fluoroscopy HISTORY: Pain 18 seconds fluoroscopy time supplied to the referring clinician. 5 intraoperative C-arm images docum ent the procedure. See dictated report from anesthesia.
== END 2021-10-26 10:15 | disposition home or self-care (01) ==
LOC: ORPAIN 07:46
DX: M54.12 Radiculopathy, cervical region (principal)
CPT/HCPCS: 62321; J2250; J1100; J3010; Q9966; 99152

== ENCOUNTER → 2021-11-22 | Outpatient (CLI) | payer MEDICARE ==
--- NOTE | 2021-11-22 15:12 | P.PN ---
Subjective Progress Note Date: 11/22/21 Principal diagnosis: A 75 yr old male with a history of severe and chronic neck pain secondary to cervical degenerative disc diseases and spondylosis with facet arthropathy presents today for pain evaluation. Imaging of the cervical spine reviewed which showed disc bulges, spondylosis and multiple neuroforaminal stenoses with facet arthropathy. Pain level is currently at 5 out of 10 in intensity, dull, achy in the middle aspect of the cervical spine and a pressure, pinching, radiating sensation to the bilateral shoulders. Pain is provoked by extension of the neck or upper extremity lifting. Pain is alleviated with medications, injections, physical therapy 3-4 years ago, daily exercise regimen, repositioning and rest. Interventional pain procedures completed include GRACIE C6-C7 #3 and lumbar RFA Patient is currently on antispasmodics and OTC medications Patient denies any side effects of the medication(s), denies excessive drowsiness or sleepiness, denies suicidal ideation and reports that the current pain medication is helping to control the pain and improve activities of daily living. Patient denies any motor or sensory deficits. Patient denies any fever or night sweats, denies any change in the bowel movements or urination. Physical Examination: -Constitutional: Cooperative. Not in acute distress . -HEENT: Neck is supple. No lymphadenopathy. No thyromegaly. Normal thyroid size. Eyes: No ptosis , no icterus, no photophobia. ENT: No auditory deficits. Normal oropharynx. No Thrush. - Respiratory: Chest clear to auscultations bilaterally. No wheezing. No rhonchi. - Cardiovascular: Regular rate and rhythm. S1 / S2 , no S3 , no S4. - Gastrointestinal: Abdomen soft no tenderness. Bowel sounds positive in all four quadrants. No organomegaly. - Genitourinary: Deferred. - Neurologic: Cranial nerve II to XII intact. No focal neurological deficits. - Psychatric: Alert & oriented x 3. Matching mood & appropriate affect. Judgment and insight intact. - Lymphatic: No Lymphadenopathy. - Musculoskeletal: Cervical spine: Muscle bulk/ tone/ strength in the bilateral upper extremities normal. Facet loading test cervical area positive mostly over bilateral C4-C5, C5- C6 with jump reflex Lumbar spine: Motor bulk/ tone/ strength lower extremities , thigh and legs : 5/5 Deep tendon reflexes : Normal Knee Jerk. Normal Ankle Jerk . Vertebral body tenderness to palpation over Lumbar Facet Loading Test positive Straight Leg Raise: positive at 30 degrees right side/ left side Gaenslen's Test positive Sacral spine : Severe tenderness over the Sacroiliac joint: right side / left side Range of motion: Flexion of the lumbar spine <60 degrees Range of motion: Extension of the lumbar spine <20 degrees Gaenslen's Test positive Chuck test: positive right side / left side Imaging: MRI of the cervical spine from 05/18/20 reviewed. Assessment and plan: Chronic neck pain secondary to cervical degenerative disc disease , spondylosis with facet arthropathy without myelopathy Recommendation of bilateral facet blocks of the medial branches C4-C5, C5-C6 May need a series, up to RFA, to obtain sufficient pain relief Admits to medical history of diabetes mellitus with repaglinide medication use. All patient questions answered MAPS reviewed and it was appropriate. I have spent 31 minutes on patient care today. Dr Mathias was available by phone for the evaluation of this patient. The time was used to review the medical records including relevant urine studies and Prescription history (MAPs), review of the available imaging, evaluation and examination of the patient, coordination of care with the medical staff and if applicable referring physicians, as well as creation of the medical record PQRS Measure Charge Sheet PQRS Narrative: Smoking Status Former smoker Pain Intensity [Lower Back] 3 Pain Intensity [Neck] 4 Hx Alcohol Use (MH) No Home Medications: Ambulatory Orders Aspirin 81 mg PO DAILY 09/06/17 Lisinopril-Hctz 20-25 mg [Zestoretic 20-25] 1 tab PO QAM 09/06/17 allopurinoL [Zyloprim] 300 mg PO DAILY 09/06/17 Nitroglycerin Sl Tabs [Nitrostat] 0.4 mg SUBLINGUAL Q5M PRN 10/02/17 Atorvastatin [Lipitor] 20 mg PO DAILY 06/15/20 Cyclobenzaprine [Flexeril] 10 mg PO BID PRN 06/15/20 Montelukast [Singulair] 10 mg PO DAILY 06/15/20 Cholecalciferol (Vitamin D3) [Vitamin D3] 125 mcg PO DAILY 06/17/20 Vitamin B Complex/Folic Acid [B-Complex Tablet] 1 tab PO DAILY 06/17/20 Repaglinide [Prandin] 1 mg PO BID 11/25/20 Finasteride [Proscar] 5 mg PO DAILY 07/05/21
[2021-11-22 15:52] VITALS: BP 137/80; PULSE 75; RESP 18; TEMP 98.1
== END | disposition home or self-care (01) ==
LOC: PNWHC3 12:54
PROVIDERS: ATTEND Physician Assistant Medical
DX: M47.892 Other spondylosis, cervical region (principal); M50.30 Other cervical disc degeneration, unspecified cervical region
CPT/HCPCS: 99211

== ENCOUNTER 2021-12-17 09:45 | Day surgery (SDC) | payer MEDICARE ==
[2021-12-15 12:17] VITALS: BMI 33.5
[~2021-12-17 09:45] MED LIST changes: +LIDOCAINE 1% (10MG/ML) FOR IV START INTRADERMA PRN
[2021-12-17 10:08] VITALS: TEMP 97.7
[2021-12-17 10:13] LABS: Glucose,Whole Blood 243 mg/dL (75-99)
[2021-12-17] MEDS ORDERED: INSULIN ASPART (NovoLOG) 100 UNIT/ML VIAL SQ ONE (10:22)
[2021-12-17] MEDS ORDERED: ROPIVACAINE 5MG/ML 20ML VIAL ONE (10:36)
[2021-12-17] MEDS ORDERED: MIDAZOLAM 2 MG/2 ML VIAL ONE (10:36)
[2021-12-17] MEDS ORDERED: fentaNYL (PF) 50 MCG/ML 2 ML AMP ONE (10:36)
[2021-12-17] MEDS ORDERED: methylPREDNISolone ACETATE 40 MG/ML 1 ML VIAL ONE (10:36)
--- NOTE | 2021-12-17 11:03 | P.PCN ---
Date of Procedure: 12/17/21 Procedure(s) Performed: PREOPERATIVE DIAGNOSIS: 1-Cervical Spondylosis with Facet Arthropathy.without myelopathy. 2-cervical degenerative disc disease POSTOPERATIVE DIAGNOSIS: Same as preoperative diagnosis. PROCEDURES: Diagnostic bilateral C4 , C5 , and C6 medial branch blocks, with fluoroscopic guidance (fluoroscopy images available in radiology department ) ( to target the facet joint at bilateral C4- 5 , C5- 6 )# 1st ANESTHESIA: Monitored anesthesia care as per anesthesia department . EBL: Minimal PROCEDURE INDICATION: The patient with neck pain secondary to cervical arthropathy unresponsive to more conservative treatments. PROCEDURE DESCRIPTION / TECHNIQUE: The patient was seen and identified in the preoperative area. Risks, benefits, complications, and alternatives were discussed with the patient, the patient agreed to proceed with the procedure and signed the consent. IV was started. Vital signs remained stable throughout the procedure. Patient was taken to the OR and time out was completed. The patient was placed in the prone position on the procedure table. A pillow was placed under the patients chest to increase the cervical interlaminar space. The cervical area was prepped and draped in the usual sterile fashion. Critical pause was taken. Vital signs were closely monitored during the procedure. Conscious sedation was used during the procedure to decrease patients anxiety. Using cross-table lateral fluoroscopy, the centroid of the trapezoid of right C4 , C5 and C6, was identified, marked, and localized with 1% lidocaine 1 ml at each level for skin and Sub Q infiltrations . Subsequently, a 22 G 3 spinal needle was advanced guided by fluoroscopy to the centroid of the trapezoid of Right C4 , C5, C6 . [place] tip position was confirmed at the centroid of the trapezoids of Right C4 , C5 ,C6 with anteroposterior fluoroscopy. Subsequently, 1.5 ml of preservative-free Ropivacaine 0.5% mixed with Depo- Medrol 20 mg and half ml of the mixture was injected after negative aspiration for blood and CSF. [place] was then removed intact the same procedure was repeated at the left , C4 , C5 , and C6 levels. COMPLICATIONS: No acute complications. DISPOSITION / PLANS: The patient was placed in a supine position and transferred to the recovery area in a stable condition for observation and was discharged from the recovery room after meeting discharge criteria. Home discharge instr uctions given to the patient by the staff. The patient was reexamined prior to discharge. The patient will schedule a follow up in the clinic in 2-4 weeks.
[2021-12-17] MEDS ORDERED: LACTATED RINGERS 700 ML IV ONE (11:07)
[2021-12-17 11:10] VITALS: PULSE 83
[2021-12-17 11:21] VITALS: BP 140/80; RESP 16
--- NOTE | 2021-12-17 12:36 | FL ---
EXAMINATION TYPE: FL guided pain mgmt statistic DATE OF EXAM: 12/17/2021 HISTORY: Fluoroscopy time 19 seconds of fluoroscopy provided. IMPRESSION: 1. Fluoroscopy time.
== END 2021-12-17 11:40 | disposition home or self-care (01) ==
LOC: ORPAIN 09:45
PROVIDERS: ATTEND Specialist
DX: M54.12 Radiculopathy, cervical region (principal); M47.812 Spondylosis without myelopathy or radiculopathy, cervical region; G89.4 Chronic pain syndrome
CPT/HCPCS: 64490; 64491 ×2; J2250; J1030; J3010; J2795

== ENCOUNTER 2022-01-27 06:26 | Day surgery (SDC) | payer MEDICARE ==
[2022-01-26 09:51] VITALS: BMI 30.2
[2022-01-27 06:44] VITALS: TEMP 97.4
[2022-01-27] MEDS ORDERED: LACTATED RINGERS 1,000 ML IV ONE (06:50)
[2022-01-27 06:52] LABS: Glucose,Whole Blood 210 mg/dL (75-99)
[2022-01-27] MEDS ORDERED: TRIAMCINOLONE ACETONIDE 40 MG/ML 1 ML VIAL ONE (06:53)
[2022-01-27] MEDS ORDERED: MIDAZOLAM 2 MG/2 ML VIAL ONE (06:53)
[2022-01-27] MEDS ORDERED: ROPIVACAINE 5MG/ML 20ML VIAL ONE (06:53)
[2022-01-27] MEDS ORDERED: fentaNYL (PF) 50 MCG/ML 2 ML AMP ONE (06:53)
--- NOTE | 2022-01-27 07:31 | P.PCN ---
Date of Procedure: 01/27/22 Description of Procedure: PREOPERATIVE DIAGNOSIS: 1-Cervical Spondylosis with Facet Arthropathy.without myelopathy. 2-cervical degenerative disc disease POSTOPERATIVE DIAGNOSIS: Same as preoperative diagnosis. PROCEDURES: Diagnostic bilateral C4 , C5 , and C6 medial branch blocks, with fluoroscopic guidance (fluoroscopy images available in radiology department ) ( to target the facet joint at bilateral C4- 5 , C5- 6 )# 1st ANESTHESIA: Monitored anesthesia care as per anesthesia department . EBL: Minimal PROCEDURE INDICATION: The patient with neck pain secondary to cervical arthropathy unresponsive to more conservative treatments. PROCEDURE DESCRIPTION / TECHNIQUE: The patient was seen and identified in the preoperative area. Risks, benefits, complications, and alternatives were discussed with the patient, the patient agreed to proceed with the procedure and signed the consent. IV was started. Vital signs remained stable throughout the procedure. Patient was taken to the OR and time out was completed. The patient was placed in the prone position on the procedure table. A pillow was placed under the patients chest to increase the cervical interlaminar space. The cervical area was prepped and draped in the usual sterile fashion. Critical pause was taken. Vital signs were closely monitored during the procedure. Conscious sedation was used during the procedure to decrease patients anxiety. Using AP fluoroscopy, the waist/neck of the trapezoid of right C4 , C5 and C6, was identified, marked, and localized with 1% lidocaine 1 ml at each level for skin and Sub Q infiltrations . Subsequently, a 22 G 3 spinal needle was ad vanced guided by fluoroscopy to the waist of the trapezoid of Right C4 , C5, C6 . [place] tip position was confirmed at the centroid of the trapezoids of Right C4 , C5 ,C6 with anteroposterior fluoroscopy. Subsequently, a solution consisting of 5ml 0.5% ropivacaine with 40mg of Kenalog was utilized. 1ml was injected at each site after negative aspiration for blood and CSF. [place] was then removed intact the same procedure was repeated at the left , C4 , C5 , and C6 levels. COMPLICATIONS: No acute complications. DISPOSITION / PLANS: The patient was placed in a supine position and transferred to the recovery area in a stable condition for observation and was discharged from the recovery room after meeting discharge criteria. Home discharge instructions given to the patient by the staff. The patient was reexamined prior to discharge. The patient will schedule a follow up in the clinic in 2-4 weeks.
[2022-01-27] MEDS ORDERED: IV FLUID CONTINUATION 1,000 ML IV ONE (07:35)
[2022-01-27 07:36] VITALS: RESP 16
[2022-01-27 07:52] VITALS: BP 138/74; PULSE 81
--- NOTE | 2022-01-27 09:26 | FL ---
Fluoroscopy History: Neck pain 21 sec FL
== END 2022-01-27 08:05 | disposition home or self-care (01) ==
LOC: ORPAIN 06:26
PROVIDERS: ATTEND Anesthesiology
DX: M47.812 Spondylosis without myelopathy or radiculopathy, cervical region (principal)
CPT/HCPCS: 64490; 64491; J2250; J3301; J3010; J2795; 99152; 99153

== ENCOUNTER → 2022-02-09 | Outpatient (CLI) | payer MEDICARE ==
[2022-02-09 08:31] VITALS: BP 151/76; PULSE 82; RESP 16
--- NOTE | 2022-02-09 08:37 | P.PN ---
Subjective Progress Note Date: 02/09/22 Principal diagnosis: A 76 yr old male with at side with a history of severe and chronic neck pain secondary to cervical degenerative disc diseases and spondylosis with facet arthropathy presents today for evaluation s/p facet block of the medial branches C4-C5, C5-C6 #2. Patient states he exhibited 75% pain relief for 5 days status post procedure. Pain level is currently at 4 out of 10 in intensity, achy in the mid to lower aspects of his cervical spine with radiation of pain left and right of midline. Pain is provoked by flexion, extension and lateral flexion. Pain is alleviated with medications, injections, occasional ice and heat, repositioning and rest. Interventional pain procedures completed include BL C4-C5, C5-C6 facet blocks of the medial branches #2 Patient is currently on Flexeril prn. Patient denies any side effects of the medication(s), denies excessive drowsiness or sleepiness, denies suicidal ideation and reports that the current pain medication is helping to control the pain and improve activities of daily living. Patient denies any motor or sensory deficits. Patient denies any fever or night sweats, denies any change in the bowel movements or urination. Physical Examination: -Constitutional: Cooperative. Not in acute distress . -HEENT: Neck is supple. No lymphadenopathy. No thyromegaly. Normal thyroid size. Eyes: No ptosis , no icterus, no photophobia. ENT: No auditory deficits. Normal oropharynx. No Thrush. - Respiratory: Chest clear to auscultations bilaterally. No wheezing. No rhonchi. - Cardiovascular: Regular rate and rhythm. S1 / S2 , no S3 , no S4. - Gastrointestinal: Abdomen soft no tenderness. Bowel sounds positive in all four quadrants. No organomegaly. - Genitourinary: Deferred. - Neurologic: Cranial nerve II to XII intact. No focal neurological deficits . - Psychatric: Alert & oriented x 3. Matching mood & appropriate affect. Judgment and insight intact. - Lymphatic: No Lymphadenopathy. - Musculoskeletal: Cervical spine: Muscle bulk/ tone/ strength in the bilateral upper extremities normal. Facet loading test cervical area positive. Lumbar spine: Motor bulk/ tone/ strength lower extremities , thigh and legs : 5/5 Deep tendon reflexes : Normal Knee Jerk. Normal Ankle Jerk . Vertebral body tenderness to palpation over Lumbar Facet Loading Test positive Straight Leg Raise: positive at 30 degrees right side/ left side Gaenslen's Test positive Sacral spine : Severe tenderness over the Sacroiliac joint: right side / left side Range of motion: Flexion of the lumbar spine <60 degrees Range of motion: Extension of the lumbar spine <20 degrees Gaenslen's Test positive Chuck test: positive right side / left side Assessment and plan: Chronic neck pain secondary to cervical degenerative disc disease , spondylosis with facet arthropathy without myelopathy Recommendation of bilateral RFA C4-C5, C5-C6. Pt exhibited sufficient and satisfactory pain relief with the prior facet blocks of the medial branches. Risks, benefits of procedure discussed and pt verbalized understanding. Denies anticoagulant use. Admits to medical history of diabetes. Protocol for discontinuatino/ continuatin of medications dorian procedure discussed. All patient questions answered MAPS reviewed and it was appropriate. I have spent 31 minutes on patient care today. Dr Mathias was available by phone for the evaluation of this patient. The time was used to review the medical records including relevant urine studies and Prescription history (MAPs), review of the available imaging, evaluation and examination of the patient, coordination of care with the medical staff and if applicable referring physicians, as well as creation of the medical record Objective - Vital Signs Vital signs: Vital Signs Temp Pulse 82 02/09/22 08:26 Resp 16 02/09/22 08:26 BP 151/76 02/09/22 08:26 Pulse Ox 99 02/09/22 08:26 Intake & Output 02/08/22 02/09/22 02/09/22 18:59 06:59 18:59 Weight 99.79 kg PQRS Measure Charge Sheet Mode of Arrival: Ambulatory - Pain Location Neck Non-Pharmacological Interventions: Distraction, Heat, Home Exercise, Ice, Relaxation Technique, Stretching Pharmacological Interventions: Block, Epidural, PRN Medication PQRS Narrative: Smoking Status Former smoker Blood Pressure 151/76 Pain Intensity [Neck] 4 Scale Used Numeric (1 - 10) Hx Alcohol Use (MH) No Home Medications: Ambulatory Orders Lisinopril-Hctz 20-25 mg [Zestoretic 20-25] 1 tab PO QAM 09/06/17 allopurinoL [Zyloprim] 300 mg PO DAILY 09/06/17 Nitroglycerin Sl Tabs [Nitrostat] 0.4 mg SUBLINGUAL Q5M PRN 01/08/18 Atorvastatin [Lipitor] 20 mg PO DAILY 06/15/20 Cyclobenzaprine [Flexeril] 5 mg PO DAILY PRN 06/15/20 Montelukast [Singulair] 10 mg PO DAILY 06/15/20 Cholecalciferol (Vitamin D3) [Vitamin D3] 125 mcg PO DAILY 06/17/20 Vitamin B Complex/Folic Acid [B-Complex Tablet] 1 tab PO DAILY 06/17/20 Repaglinide [Prandin] 1 mg PO QAM 11/25/20 Finasteride [Proscar] 5 mg PO DAILY 07/05/21 Aspirin [Adult Low Dose Aspirin EC] 81 mg PO DAILY 01/26/22 Repaglinide [Prandin] 2 mg PO W/SUPPER 02/07/22
== END | disposition home or self-care (01) ==
LOC: PNWHC3 08:03
PROVIDERS: ATTEND Specialist
DX: M47.892 Other spondylosis, cervical region (principal)
CPT/HCPCS: 99211

== ENCOUNTER 2022-03-25 06:20 | Day surgery (SDC) | payer MEDICARE ==
[2022-03-23 11:59] VITALS: BMI 30.2
[2022-03-25 06:45] VITALS: RESP 16; TEMP 97.2
[2022-03-25 06:49] LABS: Glucose,Whole Blood 196 mg/dL (70-110)
[2022-03-25] MEDS ORDERED: MIDAZOLAM 2 MG/2 ML VIAL ONE (06:59)
[2022-03-25] MEDS ORDERED: ROPIVACAINE 5MG/ML 20ML VIAL ONE (06:59)
[2022-03-25] MEDS ORDERED: methylPREDNISolone ACETATE 40 MG/ML 1 ML VIAL ONE (06:59)
[2022-03-25] MEDS ORDERED: fentaNYL (PF) 50 MCG/ML 2 ML AMP ONE (06:59)
--- NOTE | 2022-03-25 08:02 | P.PCN ---
Date of Procedure: 03/25/22 Procedure(s) Performed: PREOPERATIVE DIAGNOSIS: Cervical spondylosis with Facet Arthropathy without myelopathy. POSTOPERATIVE DIAGNOSIS: Cervical spondylosis with Facet Arthropathy without myelopathy. PROCEDURES: Radiofrequency thermocoagulation, bilateral C4, C5, C6 medial branch with Fluroscopy [place](fluoroscopy was available in Radiology department ) (to denervate the facet joint at bilateral C4- 5 , C5- 6 ) ANESTHESIA: Monitored anesthesia care as per anesthesia department . EBL: Minimal PROCEDURE INDICATION: The patient with neck pain secondary to cervical arthropathy who had more than 75% relief of her pain with previous diagnostic cervical medial branch block. PROCEDURE DESCRIPTION / TECHNIQUE: The patient was seen and identified in the preoperative area. Risks, benefits, complications, and alternatives were discussed with the patient, the patient agreed to proceed with the procedure and signed the consent. IV was started. Vital signs remained stable throughout the procedure. Patient was taken to the OR and time out was completed. The patient was placed in the lateral position on the procedure table ( right side up ). The cervical area was prepped and draped in the usual sterile fashion. Critical pause was taken. Vital signs were closely monitored during the procedure. Conscious sedation was used during the procedure to decrease patients anxiety. Using cross-table lateral fluoroscopy, the centroid of the trapezoid of right C4, C5, and C6 were identified, marked, and localized with 1% lidocaine. Subsequently, a 20 [id number] radiofrequency cannula with a 10-mm active tip was advanced guided by fluoroscopy to the centroid of the trapezoid of right C4, C5, and C6 . Needle tip position was confirmed at the centroid of the trapezoids of right C4, C5, and C6 with anteroposterior fluoroscopy. Each site then underwent sensory testing at 50 Hz and 0 to 1 volt and motor testing at 2 Hz and 0 to 3 volt with local stimulation, but no radicular symptoms down the arm. Thereafter each sites underwent radiofrequency thermocoagulation at 80 degrees celsius for 90 seconds after injecting 0.5 ml of PF Ropivacaine 0.5 %. After thermocoagulation, 1 ml of the block solution containing Depo-Medrol 20 mg and 3 mL of preservative-free normal saline was injected at the right C4, C5, and C6 levels after negative aspiration of CSF and blood and with no paresthesias. Cannulas were retracted while injecting ropivacaine 0.5 % until the needle is out. And after that the patient turned to the right lateral position the left side up and within the RFA for the left side at C4, C5 ,and C6, and after the procedure was done the skin was cleansed and bandages were applied. COMPLICATIONS: No acute complications. DISPOSITION / PLANS: The patient was placed in a supine position and transferred to the recovery area in a stable condition for observation and was discharged from the recovery room after meeting discharge criteria. Home discharge instructions given to the patient by the staff. The patient was reexamined prior to discharge. The patient will schedule a follow up in the clinic in 2-4 weeks.
[2022-03-25] MEDS ORDERED: IV FLUID CONTINUATION 1,000 ML IV ONE (08:05)
[2022-03-25 08:20] VITALS: BP 112/68; PULSE 75
--- NOTE | 2022-03-25 08:58 | FL ---
EXAMINATION TYPE: FL guided pain mgmt statistic DATE OF EXAM: 03/25/2022 HISTORY: Fluoroscopy time 1 minute and 43 seconds of fluoroscopy provided. IMPRESSION: 1. Fluoroscopy time.
== END 2022-03-25 08:35 | disposition home or self-care (01) ==
LOC: ORPAIN 06:20
PROVIDERS: ATTEND Specialist
DX: M47.812 Spondylosis without myelopathy or radiculopathy, cervical region (principal); I10 Essential (primary) hypertension; E11.69 Type 2 diabetes mellitus with other specified complication; E78.5 Hyperlipidemia, unspecified; G47.33 Obstructive sleep apnea (adult) (pediatric); M06.9 Rheumatoid arthritis, unspecified; Z95.1 Presence of aortocoronary bypass graft; Z88.7 Allergy status to serum and vaccine; Z79.899 Other long term (current) drug therapy; Z79.82 Long term (current) use of aspirin; Z91.012 Allergy to eggs; Z91.011 Allergy to milk products; Z91.018 Allergy to other foods; Z91.09 Other allergy status, other than to drugs and biological substances; Z87.891 Personal history of nicotine dependence
CPT/HCPCS: 64633; 64634 ×2; J2250; J1030; J3010; J2795

== ENCOUNTER → 2022-04-11 | Outpatient (CLI) | payer MEDICARE ==
[2022-04-11 13:22] VITALS: BP 124/80; PULSE 81; RESP 18; TEMP 98.6
--- NOTE | 2022-04-11 14:27 | P.PAINPG ---
Objective - Vital Signs Vital signs: Intake & Output 04/10/22 04/11/22 04/11/22 18:59 06:59 18:59 Weight 93.894 kg PQRS Measure Charge Sheet Comment: A 76 yr old male with a history of severe and chronic neck pain secondary to degenerative disc diseases and spondylosis with facet arthropathy presents today for evaluation of BL RFA C4-C5, C5-C6. Pt states he received 95% pain relief s/p procedure. Pain level is 2/10 in intensity, constant, achy/ tightness in the lower aspect of his cervical spine which is "bearable." Pain is provoked by lifting or overhead reaching. Pain is alleviated with medications (muscle relaxer), home based stretching regimen, repositioning and rest. Interventional pain procedures completed include BL RFA C4-C5, C5-C6, GRACIE C6- C7/ C7-T1, BL RFA L3-L5 Patient is currently on Muscle Relaxers Patient denies any side effects of the medication(s), denies excessive drowsiness or sleepiness, denies suicidal ideation and reports that the current pain medication is helping to control the pain and improve activities of daily living. Patient denies any motor or sensory deficits. Patient denies any fever or night sweats, denies any change in the bowel movements or urination. Physical Examination: -Constitutional: Cooperative. Not in acute distress . - Neurologic: Cranial nerve II to XII intact. No focal neurological deficits. - Psychatric: Alert & oriented x 3. Matching mood & appropriate affect. Judgment and insight intact. - Musculoskeletal: Cervical spine: Muscle bulk/ tone/ strength in the bilateral upper extremities normal Vertebral body tenderness to palpation over [place] test positive Distraction test positive Facet loading test positive Thoracic spine Muscle bulk / tone/ strength in the bilateral paraspinal muscles normal Vertebral body tender to palpation over Facet loading test positive Lumbar spine: Motor bulk/ tone/ strength lower extremities , thigh and legs : 5/5 Deep tendon reflexes : Normal Knee Jerk. Normal Ankle Jerk . Vertebral body tenderness to palpation over Lumbar Facet Loading Test positive Straight Leg Raise: positive at 30 degrees right side/ left side Gaenslen's Test positive Sacral spine : Severe tenderness over the Sacroiliac joint: right side / left side Range of motion: Flexion of the lumbar spine <60 degrees Range of motion: Extension of the lumbar spine <20 degrees Gaenslen's Test positive Davion's Test positive Chuck test: positive right side / left side Thigh Thrust Test Sacral Thrust Test Assessment and plan: Chronic neck pain secondary to cervical degenerative disc disease , spondylosis with facet arthropathy without myelopathy Pt received sufficient and satisfactory pain relief s/p procedure. Pt will follow home pain mgmt modalities to treat pain and if pain is unbearable, he may return to our clinic on an as needed basis. All patient questions answered MAPS reviewed and it was appropriate. I have spent less than 30 minutes on patient care today. Dr Mathias was available by phone for the evaluation of this patient. The time was used to review the medical records including relevant urine studies and Prescription history (MAPs), review of the available imaging, evaluation and examination of the patient, coordination of care with the medical staff and if applicable referring physicians, as well as creation of the medical record PQRS Narrative: Smoking Status Former smoker Hx Alcohol Use (MH) No Home Medications: Ambulatory Orders Lisinopril-Hctz 20-25 mg [Zestoretic 20-25] 1 tab PO QAM 09/06/17 allopurinoL [Zyloprim] 300 mg PO DAILY 09/06/17 Nitroglycerin Sl Tabs [Nitrostat] 0.4 mg SUBLINGUAL Q5M PRN 10/02/17 Atorvastatin [Lipitor] 20 mg PO DAILY 06/15/20 Cyclobenzaprine [Flexeril] 5 mg PO DAILY PRN 06/15/20 Montelukast [Singulair] 10 mg PO DAILY 06/15/20 Cholecalciferol (Vitamin D3) [Vitamin D3] 125 mcg PO DAILY 06/17/20 Vitamin B Complex/Folic Acid [B-Complex Tablet] 1 tab PO DAILY 06/17/20 Repaglinide [Prandin] 1 mg PO QAM 11/25/20 Finasteride [Proscar] 5 mg PO DAILY 07/05/21 Aspirin [Adult Low Dose Aspirin EC] 81 mg PO DAILY 01/26/22 Repaglinide [Prandin] 2 mg PO W/SUPPER 02/07/22 Controlled Substance Measures - Controlled Substance Measures Is patient prescribed a controlled substance at discharge?: No
== END ==
LOC: PNWHC3 12:49
PROVIDERS: ATTEND Specialist
DX: M50.30 Other cervical disc degeneration, unspecified cervical region (principal); M47.812 Spondylosis without myelopathy or radiculopathy, cervical region; G89.29 Other chronic pain; Z87.891 Personal history of nicotine dependence
CPT/HCPCS: 99211

== ENCOUNTER → 2022-09-28 | Outpatient (CLI) | payer MEDICARE ==
--- NOTE | 2022-09-28 11:31 | P.PN ---
Subjective DATE: 09/28/2022 FOLLOW UP VISIT. Patient with obstructive sleep apnea hypopnea syndrome return to sleep center for follow-up visit. Information from previous visit have been reviewed. Patient is using PAP equipment every night for the whole night, getting PAP supplies in time. The patient does not have significant problems with the mask, PAP unit and humidification. [place] sleepiness scale is slightly increased to 11. I checked information from PAP unit. PAP unit pressure 6 cm H2O. Usage is 100 % for more then 4 hours, average 4.7 hours per night. Leak is 20 l/m, which is in acceptable range. Apnea Hypopnea Index is 2.1, which is normal. MEDICATIONS:1. Toprol 2. And ramipril 3. Lipitor 4. Aspirin 5. Glipizide 6. Claritin 7. Shantel During physical exam: GENERAL: A pleasant patient without any distress. VITAL SIGNS: BP 113/78, HR 88, RR 16 , weight 215.8, patient lost 13 pounds since previous visit, temperature 97.8, oxygen saturation at room air 98 % . HEENT: PERRLA, EOMI.low position of soft palate, Mallapati 3-4 . NECK: Supple. No JVD. LUNGS: Clear to percussion and to auscultation. Good air exchange. No wheezing or rhonchi. HEART: S1, S2 regular. ABDOMEN: Soft and nontender. Slightly obese EXTREMITIES: No clubbing or cyanosis. SENIOR CATEGORY MANAGER: Awake, alert, and oriented x3. No focal deficit. Impressions: 1. Obstructive sleep apnea-hypopnea syndrome. Patient demonstrated good compliance with treatment, benefiting from treatment. 2. Hypertension. 3. Obesity patient lost 13 pounds since previous visit. 4. Coronary artery disease status post CABG. 5. History of periodic limb movements. Presently no complaints. 6. History of diabetes mellitus. 7. History of increased eye pressure. 8. History of [place] disease. 9. Back problems. 10. BPH. 11. History of broken neck. . Plan: 1. Continue using PAP equipment every night for the whole night. 2. To change air filter at least 1-2 times per month. 3. PAP unit should stay lower then position of the head. 4. Advised patient to remove all remaining water from humidifier canister daily and make it dry after each usage. Refill canister with fresh distilled water before each usage. 5. Sleep hygiene with regular time in bed for at least 8 hours. 6. Precautions related to driving. No driving if feel any sleepiness. 7. I will maintain prescription for PAP supplies including mask, tube, filters. 8. Follow up visit in 6 months or earlier if patient has any problems. 9. Watching and continue losing weight. Thank you very much for allowing me to participate in the management of your patient. Pierre Birmingham MD, PhD, FAASM. Diplomat of [place] [employer], Sleep Medicine Board by [place] [employer] Table Cover Folder of [facility] [place]
== END ==
LOC: SLEEP 10:31
PROVIDERS: ATTEND Internal Medicine
DX: G47.33 Obstructive sleep apnea (adult) (pediatric) (principal); I10 Essential (primary) hypertension; E66.9 Obesity, unspecified; I25.10 Atherosclerotic heart disease of native coronary artery without angina pectoris; Z95.1 Presence of aortocoronary bypass graft; G47.61 Periodic limb movement disorder; Z86.39 Personal history of other endocrine, nutritional and metabolic disease; Z98.890 Other specified postprocedural states; Z86.69 Personal history of other diseases of the nervous system and sense organs; M54.9 Dorsalgia, unspecified; N40.0 Benign prostatic hyperplasia without lower urinary tract symptoms; Z87.81 Personal history of (healed) traumatic fracture; Z79.82 Long term (current) use of aspirin; Z87.891 Personal history of nicotine dependence; Z91.018 Allergy to other foods; Z91.012 Allergy to eggs; Z91.011 Allergy to milk products; Z91.048 Other nonmedicinal substance allergy status
CPT/HCPCS: 99212

== ENCOUNTER → 2023-01-05 | Outpatient (CLI) | payer MEDICARE ==
[2023-01-05 16:02] LABS: INR 0.9 (<1.2); Partial Thromboplastin Time 23.4 sec (22.0-30.0); Prothrombin Time 9.7 sec (9.0-12.0)
[2023-01-06 00:36] LABS: African American GFR (CKD) 63.2 (60.0-200.0); Albumin 4.4 g/dL (3.8-4.9); Albumin/Globulin Ratio 2.15 (1.60-3.17); Anion Gap 12.7 mmol/L (10.00-18.00); BUN/Creat Ratio 18.82 Ratio (12.00-20.00); Blood Urea Nitrogen 23.9 mg/dL (9.0-27.0); Carbon Dioxide 24.3 mmol/L (20.0-27.5); Globulin 2.1 g/dL (1.6-3.3); Non-African American GFR(CKD) 54.5 (60.0-200.0); Potassium 4.4 mmol/L (3.5-5.5); Total Bilirubin 0.3 mg/dL (0.30-1.20); Total Protein 6.5 g/dL (6.2-8.2)
[2023-01-06 03:30] LABS: Appearance,Urine Clear (Clear); Bilirubin,Urine Negative (Negative); Blood,Urine Negative (Negative); Color,Urine Yellow (Yellow); Ketones,Urine Negative (Negative); Nitrite,Urine Negative (Negative); Specific Gravity,Urine 1.014 (1.001-1.030); Urobilinogen,Urine 0.2 (0.2,1.0)
== END | disposition home or self-care (01) ==
LOC: LABPAT 14:06
PROVIDERS: ATTEND Orthopaedic Surgery
DX: Z01.812 Encounter for preprocedural laboratory examination (principal); M19.012 Primary osteoarthritis, left shoulder
CPT/HCPCS: 80053; 81003; 85610; 85730; 87070

== ENCOUNTER → 2023-01-10 | Outpatient (CLI) | payer MEDICARE ==
[2023-01-10 16:12] LABS: Basophils # (A) 0.03 X 10*3/uL (0.00-0.10); Basophils % (A) 0.4 %; Eosinophils # (A) 0.12 X 10*3/uL (0.04-0.35); Eosinophils % (A) 1.6 %; HCT 40.8 % (39.6-50.0); HGB 13.5 g/dL (13.0-17.0); Immature Grans, Automated 0.4 %; Lymphocytes # (A) 2.07 X 10*3/uL (0.90-5.00); Lymphocytes % (A) 28.4 %; MCH 31.8 pg (27.0-32.0); MCHC 33.1 g/dL (32.0-37.0); MCV 96.2 fL (80.0-97.0); Mean Platelet Volume 9.1 fL (9.5-12.2); Monocytes % (A) 6.9 %; NRBC Per 100 WBC 0 /100 WBCS (0.0-0.0); Neutrophils # (A) 4.53 X 10*3/uL (1.80-7.70); Neutrophils % (A) 62.3 %; Platelet Count 288 X 10*3/uL (140-440); RBC 4.24 X 10*6/uL (4.40-5.60); RDW 13.4 % (11.5-14.5); WBC 7.28 X 10*3/uL (4.50-10.00)
== END | disposition home or self-care (01) ==
LOC: LABPAT 11:36
PROVIDERS: ATTEND Orthopaedic Surgery
DX: Z01.812 Encounter for preprocedural laboratory examination (principal); M19.012 Primary osteoarthritis, left shoulder
CPT/HCPCS: 85025

== ENCOUNTER 2023-01-24 09:37 | Day surgery (SDC) | payer MEDICARE ==
[~2023-01-24 09:37] MED LIST changes: +ACETAMINOPHEN TAB 500 MG TAB PO PRN; +GABAPENTIN 300 MG CAP PO PRN; +HYDROmorphone 0.5 MG/0.5 ML SYRINGE IVP PRN; -LACTATED RINGERS 1,000 ML IV SCH; -LIDOCAINE 1% (10MG/ML) FOR IV START INTRADERMA PRN; +MELOXICAM 7.5 MG TAB PO PRN; +ONDANSETRON 4 MG/2 ML VIAL IVP ONE; +TRANEXAMIC ACID IN NACL,ISO-OS 1,000 MG in SALINE 1 100ML.BAG IVPB PRN; +fentaNYL (PF) 50 MCG/ML 2 ML AMP IV PRN
[2023-01-24] MEDS ORDERED: LACTATED RINGERS 1,000 ML IV ONE ×2 (10:22→12:00)
[2023-01-24] MEDS ORDERED: ONDANSETRON 4 MG/2 ML VIAL ONE (10:23)
[2023-01-24] MEDS ORDERED: DEXAMETHASONE SOD PHOSPHATE 4 MG/ML 1 ML VIAL IVP ONE (10:33)
[2023-01-24 10:39] LABS: Glucose,Whole Blood 197 mg/dL (70-110)
[2023-01-24] MEDS ORDERED: ONDANSETRON 4 MG/2 ML VIAL IVP PRN (10:46)
[2023-01-24] MEDS ORDERED: SENNOSIDES-DOCUSATE SODIUM 1 EACH TAB PO PRN (10:46)
[2023-01-24] MEDS ORDERED: HYDROmorphone 0.5 MG/0.5 ML SYRINGE IVP PRN ×3 (10:46)
[2023-01-24] MEDS ORDERED: HYDROcodone/APAP 7.5-325MG 1 EACH TAB PO PRN ×2 (10:48)
[2023-01-24] MEDS ORDERED: MIDAZOLAM 2 MG/2 ML VIAL IVP ONE (10:58)
[2023-01-24] MEDS ORDERED: PROPOFOL 10 MG/ML 20 ML VIAL IV ONE (11:03)
[2023-01-24] MEDS ORDERED: TRANEXAMIC ACID IN NACL,ISO-OS 1,000 MG/100 ML BAG ONE (11:03)
[2023-01-24] MEDS ORDERED: LIDOCAINE 2% INJ 20 MG/ML (2 ML VIAL) ONE (11:03)
[2023-01-24] MEDS ORDERED: PHENYLEPHRINE-0.9% NACL SYG 1,000 MCG/10 ML SYRINGE ONE (11:03)
[2023-01-24] MEDS ORDERED: ROCURONIUM 10 MG/ML (5 ML VIAL) IV ONE (11:03)
[2023-01-24] MEDS ORDERED: SUCCINYLCHOLINE CHLORIDE 200 MG/10 ML VIAL IV ONE (11:03)
[2023-01-24] MEDS ORDERED: GLYCOPYRROLATE 0.2 MG/ML 2 ML VIAL ONE (11:03)
[2023-01-24] MEDS ORDERED: NEOSTIGMINE 1 MG/ML 10 ML VIAL ONE (11:03)
[2023-01-24] MEDS ORDERED: fentaNYL (PF) 50 MCG/ML 2 ML AMP ONE (11:03)
[2023-01-24] MEDS ORDERED: ceFAZolin 1,000 MG in SODIUM CHLORIDE 0.9% 1,000 ML IRRIGATION ONE (11:08)
--- NOTE | 2023-01-24 12:03 | P.ANPRN ---
Procedure Note - Anesthesia - Nerve Block Performed Left Igor Single Time Out Performed: Yes Date of Procedure: 01/24/23 Procedure Start Time: 10:57 Procedure Stop Time: 11:02
--- NOTE | 2023-01-24 12:13 | P.OP ---
Date of Procedure: 01/24/23 Preoperative Diagnosis: Severe osteoarthritis of the left shoulder with chronic rotator cuff tear Postoperative Diagnosis: Severe osteoarthritis of left shoulder with chronic rotator cuff tear Procedure(s) Performed: Reverse total shoulder arthroplasty Implants: Biomet comprehensive shoulder system, mini humeral stem, 13 mm porous-coated. Biomet comprehensive reverse shoulder system, humeral bearing, 36 mm, standard Biomet comprehensive reverse shoulder system, mini humeral tray, 40 mm, +0, standard Biomet comprehensive reverse shoulder, Glenosphere mini baseplate, 25 mm Biomet comprehensive reverse shoulder, central screw, 6.5 mm x 30 mm Biomet comprehensive reverse shoulder, fixed locking screw, 4.75 x 20 mm, 15 mm, 15 mm, 20 mm. Biomet comprehensive reverse shoulder glenosphere, 36 mm, standard All components were press-fit. Articulation is metal on polyethylene.Articulation is metal on polyethylene. Anesthesia: GETA Surgeon: Ash Araujo Bale Stacker #1: Irlanda Ackerman Estimated Blood Loss (ml): 100 Pathology: other (Humeral head) Condition: stable Disposition: PACU Indications for Procedure: This is a patient that presented to my office with severe pain in the shoulder. X-rays demonstrated severe osteoarthritis of the glenohumeral joint of the shoulder. After failure of conservative treatment, we discussed the surgical and nonsurgical treatment options at length. The patient wishes to proceed with a reverse total shoulder arthroplasty. Patient is aware of the complications of the procedure which include but are not limited to infection, hardware failure, persistent pain, dislocation, and nerve injury. Informed consent was obtained. Operative Findings: The operative findings are consistent with severe osteoarthritis the left shoulder with chronic rotator cuff tear Description of Procedure: The patient was seen in the preoperative area, consent was reviewed, and operative site was marked with a skin marker. Patient was then brought to the operating room and given preoperative antibiotics intravenously. Patient was also given 1 g of Tranexamic acid intravenously. A general anesthetic was administered by the anesthesia department. A Crowley catheter was placed by the nursing staff. The patient was then placed in a beachchair position with the bony prominences well-padded and the head secured. The shoulder was then prepped and draped in the usual sterile fashion. A universal timeout was then performed, which confirmed the patient's name, surgical site, ALLERGIES, and consent. A standard deltopectoral approach was performed. The skin and subcutaneous tissue was sharply dissected down to the deltoid fascia. The cephalic vein was then identified and retracted medially. The deltopectoral interval was then utilized to expose the subscapularis tendon. A retractor was then placed under the coracobrachialis tendon retracted medially, and the deltoid. The axillary nerve is palpated and protected throughout the procedure. The subscapularis tendon was then released and retracted medially. The humeral head was then exposed easily. The rotator cuff tendon was found to be completely torn and retracted. After the humeral head was exposed, osteophytes were removed with a Ronguer. Next the humeral stem was prepared. A starter reamer was then placed through the humeral head along the axis of the humeral shaft just lateral to the articular surface and just medial to the rotator cuff attachment. Sequential reaming was performed to the appropriate size reamer was inserted to the #between the 3 and 4 on the reamer. Next the intramedullary resection guide was placed on the reamer shaft. It was placed to the appropriate resection depth and angle of 30 of retroversion. Resection guide block was then secured with Steinmann pins. The proximal humerus was then resected. The block was then removed and the humerus was then broached sequentially to the same size as the reamer. After the broaches fully seated, the broach handle was removed and a broach cover was placed protect the humerus while the glenoid was prepared. Next attention was directed to the glenoid. The appropriate retractors were placed around the glenoid and any remaining soft tissues was removed from around the glenoid. After the glenoid was adequately exposed, the threaded glenoid guide was placed onto the glenoid and a 3.2 mm Steinmann pin was inserted in the glenoid at the desired angle and position, ensuring the pin engaged medial cortical wall. Next, the cannulated baseplate reamer was placed over the top of the Steinmann pin. The glenoid was then reamed to the appropriate depth. The glenoid reamer was then removed, leaving the Steinmann pin. The glenoid Roque plate implant was placed on the end of the cannulated baseplate impactor. The baseplate was then impacted fully into the glenoid. Next the 6.5 mm central screw was then placed which afforded excellent fixation. The 4 peripheral locki ng screws were then drilled measured and placed. Next the appropriate glenosphere was opened and impacted into the glenoid baseplate. Attention was then redirected to the humerus. Next a trial humeral tray was placed in the shoulder was reduced. Shoulder was taken through a full range of motion and found to be stable. The shoulder was then gently dislocated, and the trial humerus and humeral tray were removed. The final humeral stem was impacted in the final humeral tray was impacted as well. Shoulder was then relocated. Again the shoulder was taken through a range of motion and found to have no instability. Shoulder was then irrigated with pulsatile lavage. The shoulder was then irrigated with Irrisept solution. A second dose of 1 g of Tranexamic acid was given. The subscapularis was then repaired with #1 Vicryl. The deltopectoral interval was then closed with #1 Vicryl as well. The subcutaneous tissues were closed with 3-0 Vicryl then 3-0 stratafix suture. Exofin glue was was placed on the skin. A sterile dressing was then applied, the patient was transported to the recovery room in an arm sling in stable condition. The reference library assistant LIZBET Morel was required due the complexity of surgery and the need for a skilled certified surgical technician.
[2023-01-24 12:52] LABS: Glucose,Whole Blood 209 mg/dL (70-110)
--- NOTE | 2023-01-24 13:07 | XR ---
EXAMINATION TYPE: XR shoulder limited LT DATE OF EXAM: 01/24/2023 COMPARISON: NONE HISTORY: A postop TECHNIQUE: One view submitted FINDINGS: Soft tissue edema and emphysema with left lower lobe infiltrate and small effusion. Postsur gical changes compatible with show replacement surgery. IMPRESSION: 1. Postoperative change appears in near-anatomic alignment 2. There is left lower lobe infiltrate and small pleural effusion partially included in the field-of- view.
[2023-01-24] MEDS ORDERED: INSULIN ASPART (NovoLOG) 100 UNIT/ML VIAL SQ ONE (13:37)
[2023-01-24] MEDS ORDERED: CYCLOBENZAPRINE 5 MG TAB PO PRN (15:06)
[2023-01-24] MEDS ORDERED: DEXTROSE 50% SYRINGE 50 ML IVP PRN ×2 (15:28)
[2023-01-24] MEDS: LACTATED RINGERS 1,000 ML IV SCH ×4 (16:09→16:13)
[2023-01-24 17:21] LABS: Glucose,Whole Blood 263 mg/dL (70-110)
[2023-01-24] MEDS: INSULIN ASPART (NovoLOG) 100 UNIT/ML VIAL SQ SCH ×2 (17:38→20:47)
[2023-01-24 19:54] VITALS: RESP 17
[2023-01-24 20:44] LABS: Glucose,Whole Blood 418 mg/dL (70-110)
[2023-01-24] MEDS ORDERED: INSULIN DETEMIR (LEVEMIR) 100 UNIT/ML SYR SQ ONE (21:15)
[2023-01-25 06:17] LABS: Glucose,Whole Blood 137 mg/dL (70-110)
[2023-01-25] MEDS: INSULIN ASPART (NovoLOG) 100 UNIT/ML VIAL SQ SCH ×2 (06:21→12:10)
[2023-01-25 08:45] VITALS: BP 89/56; PULSE 69; TEMP 97.8
[2023-01-25] MEDS ORDERED: MONTELUKAST 10 MG TAB PO SCH (09:00)
[2023-01-25] MEDS ORDERED: allopurinoL 300 MG TAB PO SCH (09:00)
[2023-01-25] MEDS ORDERED: LISINOPRIL-HCTZ 20-25 MG 1 EACH TAB PO SCH (09:00)
[2023-01-25] MEDS ORDERED: FINASTERIDE 5 MG TAB PO SCH (09:00)
[2023-01-25] MEDS ORDERED: ATORVASTATIN 20 MG TAB PO SCH (09:00)
--- NOTE | 2023-01-25 09:45 | P.DS ---
Providers Expected date of discharge: 01/25/23 Attending physician: Ash Araujo Consults: 01/24/23 10:46 Consult Physician Routine Consulting Provider: Aaron Terrazas Consult Reason/Comments: medical management Do you want consulting provider notified?: Yes Primary care physician: Carla Terrazas - Discharge Diagnosis(es) (1) Status post reverse total arthroplasty of left shoulder Current Visit: Yes Status: Acute (2) Osteoarthritis of left shoulder Current Visit: Yes Status: Acute Hospital Course: This is a patient that presented to our office with severe pain in the shoulder. X-rays demonstrated severe osteoarthritis of the glenohumeral joint of the shoulder. After failure of conservative treatment, we discussed the surgical and nonsurgical treatment options at length. The patient wishes to proceed with a reverse total shoulder arthroplasty. Patient is aware of the complications of the procedure which include but are not limited to infection, hardware failure, persistent pain, dislocation, and nerve injury. Informed consent was obtained. The patient was taken to surgery on 01/24/2023 for total reverse left shoulder arthroplasty. The patient is doing well postoperatively. There are no new complaints or concerns today. Vital signs are stable. The patient is discharged to home on postoperative day #1 in good condition. Please see med rec for accurate list of home medications. Patient Condition at Discharge: Good Plan - Discharge Summary Discharge Rx Participant: No New Discharge Prescriptions: New Sennosides [Senokot] 2 tab PO DAILY PRN #60 tablet PRN Reason: Constipation HYDROcodone/APAP 7.5-325MG [[place] 7.5-325] 1 - 2 tab PO Q6H PRN #32 tab PRN Reason: Pain No Action Lisinopril-Hctz 20-25 mg [Zestoretic 20-25] 1 tab PO QAM allopurinoL [Zyloprim] 300 mg PO DAILY Nitroglycerin Sl Tabs [Nitrostat] 0.4 mg SUBLINGUAL Q5M PRN PRN Reason: Chest Pain Montelukast [Singulair] 10 mg PO DAILY Atorvastatin [Lipitor] 20 mg PO DAILY Cyclobenzaprine [Flexeril] 5 mg PO DAILY PRN PRN Reason: Pain Vitamin B Complex/Folic Acid [B-Complex Tablet] 1 tab PO DAILY Cholecalciferol (Vitamin D3) [Vitamin D3] 125 mcg PO DAILY Repaglinide [Prandin] 1 mg PO QAM Repaglinide [Prandin] 2 mg PO W/SUPPER Finasteride [Proscar] 5 mg PO DAILY Aspirin [Adult Low Dose Aspirin EC] 81 mg PO DAILY Metformin (Unknown) 500 mg PO 1200 Discharge Medication List Lisinopril-Hctz 20-25 mg [Zestoretic 20-25] 1 tab PO QAM 09/06/17 [History] allopurinoL [Zyloprim] 300 mg PO DAILY 09/06/17 [History] Nitroglycerin Sl Tabs [Nitrostat] 0.4 mg SUBLINGUAL Q5M PRN 10/02/17 [History] Atorvastatin [Lipitor] 20 mg PO DAILY 06/15/20 [History] Cyclobenzaprine [Flexeril] 5 mg PO DAILY PRN 06/15/20 [History] Montelukast [Singulair] 10 mg PO DAILY 06/15/20 [History] Cholecalciferol (Vitamin D3) [Vitamin D3] 125 mcg PO DAILY 06/17/20 [History] Vitamin B Complex/Folic Acid [B-Complex Tablet] 1 tab PO DAILY 06/17/20 [History] Repaglinide [Prandin] 1 mg PO QAM 11/25/20 [History] Finasteride [Proscar] 5 mg PO DAILY 07/05/21 [History] Aspirin [Adult Low Dose Aspirin EC] 81 mg PO DAILY 01/26/22 [History] Repaglinide [Prandin] 2 mg PO W/SUPPER 02/07/22 [History] Metformin (Unknown) 500 mg PO 1200 01/18/23 [History] HYDROcodone/APAP 7.5-325MG [[place] 7.5-325] 1 - 2 tab PO Q6H PRN #32 tab 01/24/23 [Rx] Sennosides [Senokot] 2 tab PO DAILY PRN #60 tablet 01/24/23 [Rx] Follow up Appointment(s)/Referral(s): Ash Araujo DO [Doctor of Osteopathic Medicine] - 2 Weeks Activity/Diet/Wound Care/Special Instructions: Maintain sling for comfort. Dressing may be removed by home care nurse or by patient in 7 days. Then change dressing twice daily until follow up. May shower with initial dressing intact and after removal. If dressing become saturated, please remove. Please follow-up with [facility] and call with any questions or concerns, . Discharge Disposition: HOME SELF-CARE
[2023-01-25 11:53] LABS: Glucose,Whole Blood 258 mg/dL (70-110)
--- NOTE | 2023-01-25 14:57 | P.CONS ---
History of Present Illness - Reason for Consult Consult date: 01/25/23 Medical management diabetes mellitus, hypertension Requesting physician: Ash Araujo - Chief Complaint Osteoarthritis of left shoulder, status post total arthroplasty of left kvng - History of Present Illness This is a 77-year-old gentleman with past medical history of CAD, CABG, diabetes mellitus, deafness, hypertension, hyperlipidemia, rheumatoid arthritis, sleep apnea, former nicotine dependence,BPH, Mnire's and multiple other medical issues, status post reverse total shoulder arthroplasty secondary to severe osteoarthritis of the left shoulder with chronic rotator cuff tear. Tolerated procedure well. Pain controlled, denies chest pain, palpitations or shortness of breath. Hyperglycemic during the night, received Lantus, with improving blood sugars this morning. Hemoglobin A1c 9.4. Denies chills or sweats. Passing flatus. Ambulating, tolerating exertion well. Denies lightheadedness, dizziness or focal deficits. Review of Systems Constitutional: Denied any fatigue denied any fever. Cardio vascular: denied any chest pain, palpitations Gastrointestinal denied any nausea vomiting Pulmonary: Denied any shortness of breath cough Neurologic denied any new focal deficits ROS Statement: Those systems with pertinent positive or pertinent negative responses have been documented in the HPI. ROS Other: All systems not noted in ROS Statement are negative. Past Medical History Past Medical History: Coronary Artery Disease (CAD), Diabetes Mellitus, Hearing Disorder / Deafness, Hyperlipidemia, Hypertension, Musculoskeletal Disorder, Prostate Disorder, Rheumatoid Arthritis (RA), Sleep Apnea/CPAP/BIPAP Additional Past Medical History / Comment(s): Problem with balance, Menieres, neck and back pain, bilat arm/hand pain w/ NT, hx of gout, elevated PSA, BPH History of Any Multi-Drug Resistant Organisms: None Reported Past Surgical History: Back Surgery, Coronary Bypass/CABG, Heart Catheterization, Orthopedic Surgery Additional Past Surgical History / Comment(s): 1996 CABG X3, bilateral carpal tunnel release, cervical fusion, Lumbar fusion L4-5-6, Pain Clinic Procedures. Past Anesthesia/Blood Transfusion Reactions: No Reported Reaction Past Psychological History: No Psychological Hx Reported Additional Psychological History / Comment(s): . Smoking Status: Former smoker Past Alcohol Use History: None Reported Additional Past Alcohol Use History / Comment(s): Quit chew & smoking at age 35, smoked for 20 yrs, 2-7 PPD, used to drink etoh heavily/quit 40years ago. Past Drug Use History: None Reported - Past Family History Mother Family Medical History: Cancer Medications and Allergies Home Medications Medication Instructions Recorded Confirmed Type Lisinopril-Hctz 20-25 mg 1 tab PO QAM 09/06/17 01/18/23 History [Zestoretic 20-] allopurinoL [Zyloprim] 300 mg PO DAILY 09/06/17 01/18/23 History Nitroglycerin Sl Tabs [Nitrostat] 0.4 mg SUBLINGUAL Q5M PRN 10/02/17 01/18/23 History Atorvastatin [Lipitor] 20 mg PO DAILY 06/15/20 01/18/23 History Cyclobenzaprine [Flexeril] 5 mg PO DAILY PRN 06/15/20 01/18/23 History Montelukast [Singulair] 10 mg PO DAILY 06/15/20 01/18/23 History Cholecalciferol (Vitamin D3) 125 mcg PO DAILY 06/17/20 01/18/23 History [Vitamin D3] Vitamin B Complex/Folic Acid 1 tab PO DAILY 06/17/20 01/18/23 History [B-Complex Tablet] Repaglinide [Prandin] 1 mg PO QAM 11/25/20 01/18/23 History Finasteride [Proscar] 5 mg PO DAILY 07/05/21 01/18/23 History Aspirin [Adult Low Dose Aspirin EC] 81 mg PO DAILY 01/26/22 01/18/23 History Repaglinide [Prandin] 2 mg PO W/SUPPER 02/07/22 01/18/23 History Metformin (Unknown) 500 mg PO 1200 01/18/23 01/24/23 History HYDROcodone/APAP 7.5-325MG [[place] 1 - 2 tab PO Q6H PRN #32 tab 01/24/23 Rx 7.5-325] Sennosides [Senokot] 2 tab PO DAILY PRN #60 tablet 01/24/23 Rx Allergies Allergy/AdvReac Type Severity Reaction Status Date / Time almond Allergy Unknown Verified 01/24/23 10:34 black pepper Allergy Unknown Verified 01/24/23 10:34 coconut Allergy Unknown Verified 01/24/23 10:34 egg Allergy Unknown Verified 01/24/23 10:34 gluten Allergy Unknown Verified 01/24/23 10:34 milk Allergy Unknown Verified 01/24/23 10:34 oats Allergy Unknown Verified 01/24/23 10:34 peach Allergy Unknown Verified 01/24/23 10:34 pineapple Allergy Swelling Verified 01/24/23 10:34 tetanus and diphtheria Allergy Unknown Verified 01/24/23 10:34 toxoids tomato Allergy Unknown Verified 01/24/23 10:34 surgical adhesive tape AdvReac redness, Uncoded 01/18/23 17:49 raw, peeling of skin Physical Exam Vitals: Vital Signs Temp Pulse Pulse Resp BP Pulse Ox 01/25/23 07:07 97.8 F 69 17 89/56 98 01/24/23 23:02 99.1 F 82 17 118/68 98 01/24/23 19:09 98.3 F 72 17 101/56 94 L 01/24/23 14:15 97.5 F L 67 18 122/76 98 01/24/23 13:42 64 15 141/78 96 01/24/23 13:18 67 15 138/74 99 01/24/23 13:03 65 15 126/72 99 01/24/23 12:48 72 15 130/68 99 01/24/23 12:33 97.1 F L 72 15 158/74 100 Intake and Output 01/24/23 01/25/23 01/25/23 22:59 06:59 14:59 Output Total 400 Balance -400 Output: Urine 400 Other: # Voids 1 1 Weight 97.5 kg PHYSICAL EXAM: VITAL SIGNS: [As above] GENERAL: Sitting up in chair, no acute distress, wearing sling HEENT: Atraumatic, normocephalic, Conjunctivae normal. eyes normal. MMM. NECK: Supple, No JVD. CARDIOVASCULAR: S1, S2 regular.No murmur RESPIRATION: Unlabored, equal air entry, Breath sounds clear with diminished bases. No rhonchi or crackles. No bronchial breathing. ABDOMEN: Soft, nondistended, nontender . No guarding. no masses palpable. No guarding, no rigidity .+Bowel sounds. LEGS: No edema. no swelling. PSYCHIATRY: Alert and oriented X3, mood and affect normal. NERVOUS SYSTEM: Cranial N 2-12 grossly normal. No focal deficits. Strength and sensation grossly intact. Skin: Warm and dry, no rash Results Labs: Abnormal Lab Results - Last 24 Hours (Table) 01/24/23 01/24/23 01/24/23 Range/Units 12:50 17:01 20:42 POC Glucose (mg/dL) 209 H 263 H 418 H (70-110) mg/dL Hemoglobin A1c (0.0-6.0) % 01/25/23 01/25/23 01/25/23 Range/Units 06:15 08:15 11:51 POC Glucose (mg/dL) 137 H 258 H (70-110) mg/dL Hemoglobin A1c 9.4 H (0.0-6.0) % Assessment and Plan Assessment: Osteoarthritis, left shoulder, status post reverse total arthroplasty of left shoulder Diabetes mellitus, hemoglobin A1c 9.4, further diabetic education including with PCP History of hypertension Hyperlipidemia Sleep apnea, wears CPAP Obesity, BMI 30 BPH Former nicotine dependence Plan: Continue on current medication regime ,monitoring and symptomatic treatment. Aggressive pulmonary toileting with incentive spirometer reinforced. Repeat blood pressure ordered. Discharge planning in progress. Thank you for the consult. The impression and plan of care has been dictated as directed. : I performed a history and examination of this patient, discussed the same with the dictator. I agree with the dictator's note ,documented as a scribe. Any additional findings or plans will be noted.
--- NOTE | 2023-01-27 11:06 | P.ANPRN ---
Procedure Note - Anesthesia - Nerve Block Performed Left Interscalene Single Time Out Performed: Yes Date of Procedure: 01/24/23 Procedure Start Time: 10:57 Procedure Stop Time: 11:02 Location of Patient: PreOp Indication: Acute Post-Operative Pain, Requested by Surgeon Sedation Type: Sedate with meaningful contact maintained Preparation: Sterile Prep Position: Supine Needle Types: Pajunk Needle Gauge: 21 Ultrasound used to visualize needle placement: Yes Ultrasound used to observe medication spread: Yes Blood Aspirated: No Pain Paresthesia on Injection Noted: No Resistance on Injection: Normal Image Stored and Saved: Yes Events: Uneventful and Well Tolerated (Ropivacaine 0.5% 20 mL plus dexamethasone 4 mg)
== END 2023-01-25 12:43 | disposition home or self-care (01) ==
LOC: OR 09:37 → 4SSUR 12:33 → OR 01-25 12:43
PROVIDERS: ATTEND Orthopaedic Surgery
DX: M19.012 Primary osteoarthritis, left shoulder (principal); M75.102 Unspecified rotator cuff tear or rupture of left shoulder, not specified as traumatic; G89.18 Other acute postprocedural pain; I11.9 Hypertensive heart disease without heart failure; I25.10 Atherosclerotic heart disease of native coronary artery without angina pectoris; Z95.1 Presence of aortocoronary bypass graft; G47.30 Sleep apnea, unspecified; E78.5 Hyperlipidemia, unspecified; E11.9 Type 2 diabetes mellitus without complications; H91.90 Unspecified hearing loss, unspecified ear; Z82.49 Family history of ischemic heart disease and other diseases of the circulatory system; Z83.3 Family history of diabetes mellitus; Z87.891 Personal history of nicotine dependence; Z79.899 Other long term (current) drug therapy; Z79.84 Long term (current) use of oral hypoglycemic drugs; Z98.1 Arthrodesis status
CPT/HCPCS: 23472; 64415; 88300; 83036; 73020; C1776; S0138; J2250; J1100; J0690 ×3; J2405

== ENCOUNTER → 2023-04-26 | Outpatient (CLI) | payer MEDICARE ==
--- NOTE | 2023-04-26 12:10 | P.PN ---
Subjective DATE: 04/26/2023 FOLLOW UP VISIT. Patient with obstructive sleep apnea hypopnea syndrome return to sleep center for follow-up visit. Information from previous visit have been reviewed. Patient is using PAP equipment every night for the whole night, getting PAP supplies in time. The patient does not have significant problems with the mask, PAP unit and humidification. [place] sleepiness scale is increased to 15. I checked information from PAP unit. PAP unit pressure 6 cm H2O. Usage is 97% and 50 % for more then 4 hours, average 4.2 hours per night. Leak is 17.3 l/m, which is in acceptable range. Apnea Hypopnea Index is 2.8, which is normal. MEDICATIONS:1. Lipitor 2. Ramipril 3. Glipizide 4. Claritin 5. Aspirin During physical exam: GENERAL: A pleasant patient without any distress. VITAL SIGNS: BP 119/66, HR 74, RR 12 , weight 216.0, temperature 97.7, oxygen saturation at room air 97 % . HEENT: PERRLA, EOMI.low position of soft palate, Mallapati 3-4 . NECK: Supple. No JVD. LUNGS: Clear to percussion and to auscultation. Good air exchange. No wheezing or rhonchi. HEART: S1, S2 regular. ABDOMEN: Soft and nontender.[] EXTREMITIES: No clubbing or cyanosis. LOGISTIC SPECIALIST: Awake, alert, and oriented x3. No focal deficit. Impressions: 1. Obstructive sleep apnea-hypopnea syndrome. Patient demonstrated great compliance with treatment, benefiting from treatment. 2. Hypertension. 3. Coronary artery disease, status post CABG. 4. History of diabetes mellitus. 5. History of periodic limb movements, no complaints presently. 6. History of increased eye pressure. 7. History of Mnire's disease. 8. BPH. 9. Back problems. 10. History of broken neck. Plan: 1. Continue using PAP equipment every night for the whole night. 2. To change air filter at least 1-2 times per month. 3. PAP unit should stay lower then position of the head. 4. Advised patient to remove all remaining water from humidifier canister daily and make it dry after each usage. Refill canister with fresh distilled water before each usage. 5. Sleep hygiene with regular time in bed for at least 8 hours. 6. Precautions related to driving. No driving if feel any sleepiness. 7. I will maintain prescription for PAP supplies including mask, tube, filters. 8. Follow up visit in 6 months or earlier if patient has any problems. 9. Watching weight. Thank you very much for allowing me to participate in the management of your patient. Pierre Birmingham MD, PhD, FAASM. Diplomat of [place] [employer], Sleep Medicine Board by [place] [employer] Commercial Insurance Underwriter of [facility] [employer]
== END ==
LOC: 3 N SLEEP 10:50
PROVIDERS: ATTEND Internal Medicine
DX: G47.33 Obstructive sleep apnea (adult) (pediatric) (principal); E11.9 Type 2 diabetes mellitus without complications; I25.10 Atherosclerotic heart disease of native coronary artery without angina pectoris; I10 Essential (primary) hypertension; N40.0 Benign prostatic hyperplasia without lower urinary tract symptoms; H40.059 Ocular hypertension, unspecified eye; H81.09 Meniere's disease, unspecified ear; M54.50 Low back pain, unspecified; Z95.1 Presence of aortocoronary bypass graft; Z99.89 Dependence on other enabling machines and devices; Z79.82 Long term (current) use of aspirin; Z79.84 Long term (current) use of oral hypoglycemic drugs; Z91.011 Allergy to milk products; Z91.018 Allergy to other foods; Z91.012 Allergy to eggs; Z88.7 Allergy status to serum and vaccine; Z91.048 Other nonmedicinal substance allergy status; Z79.899 Other long term (current) drug therapy; Z87.891 Personal history of nicotine dependence; Z87.81 Personal history of (healed) traumatic fracture
CPT/HCPCS: 99212

== ENCOUNTER → 2023-09-01 | Outpatient (CLI) | payer MEDICARE ==
[2023-09-01 15:41] LABS: African American GFR (CKD) 77 (>60 ml/min/1.73 sqM); Blood Urea Nitrogen 22 mg/dL (9-20); Non-African American GFR(CKD) 66 (>60 ml/min/1.73 sqM)
--- NOTE | 2023-09-02 09:42 | CT ---
EXAMINATION TYPE: CT chest w con CT DLP: 367.3 mGycm, Automated exposure control for dose reduction was used. DATE OF EXAM: 09/01/2023 4:00 PM COMPARISON: 09/23/2017 CT abdomen pelvis. CLINICAL INDICATION:Male, 77 years old with history of Z77.090 CONTACT WITH AND (SUSPECTED) EXPOSURE TO A; PHH, asbestos exposure TECHNIQUE: Multiple axial images were obtained through the chest. Sagittal and coronal reformats were created for review. Contrast used:100 mL of Isovue 300 with IV Contrast (None if empty) Oral contrast used: (None if empty) FINDINGS: LUNGS/ PLEURA: Intrafissural lymph nodes on the left major fissure on image 30 series 3. Right middle lobe subpleural nodule measuring 4 mm series 3 image 37. The pleura is without evidence for thickeni ng or calcifications. AIRWAY: Patent and unremarkable. HEART: Is moderately enlarged for size. There is coronary artery atherosclerosis as well as aortic va lve leaflet calcifications. Mitral valve calcifications are also present. MEDIASTINUM: No gross evidence of adenopathy. VASCULATURE: No aortic aneurysm. No filling defect to suggest pulmonary embolus. MUSCULOSKELETAL: No acute osseous abnormalities SOFT TISSUES/LYMPH NODES: Gynecomastia changes bilaterally. LOWER NECK: No significant findings. UPPER ABDOMEN: No significant findings. IMPRESSION: 1. No clinically significant pulmonary nodules. No pleural calcifications identified or pleural thic kening identified. Consider yearly low-dose lung cancer screening the patient meets criteria. 2. No acute process. Follow up recommendations for incidental pulmonary nodules, if there are any, are per [employer] [employer] or [place] [employer]. https://radiopaedia.org/articles/vknyipljhg-armjwpg-yhbmcyhwk-ksqnlu-oxpglnimgmjnrix-4?lang=us
== END | disposition home or self-care (01) ==
LOC: RADCTMAIN 15:00
PROVIDERS: ATTEND Family Medicine
DX: Z77.090 Contact with and (suspected) exposure to asbestos (principal)
CPT/HCPCS: 82565; 84520; 71260; 36415; Q9967

== ENCOUNTER → 2023-10-25 | Outpatient (CLI) | payer MEDICARE ==
--- NOTE | 2023-10-25 12:29 | P.PN ---
Subjective DATE: 10/25/2023 FOLLOW UP VISIT. Patient with obstructive sleep apnea hypopnea syndrome return to sleep center for follow-up visit. Information from previous visit have been reviewed. Patient is using PAP equipment every night for the whole night, getting PAP supplies in time. The patient does not have significant problems with the mask, PAP unit and humidification. [place] sleepiness scale is increased to 14. I checked information from PAP unit. PAP unit pressure 6 cm H2O. Usage is 97% and 63 % for more then 4 hours, average 5 hours per night. Leak is 18 l/m, which is in acceptable range. Apnea Hypopnea Index is 3.3, which is normal. MEDICATIONS:1. Metformin 500 mg twice a day 2. Lisinopril/hydrochlorothiazide 20-25 mg once a day 3. Atorvastatin 20 mg once a day 4. Allopurinol 300 mg once a day 5. Repaglinide 6. Montelukast During physical exam: GENERAL: A pleasant patient without any distress. VITAL SIGNS: BP 175/60, HR 77, RR 14, weight 217.8, temperature 97.6, oxygen saturation at room air 98 % . HEENT: PERRLA, EOMI.low position of soft palate, Mallapati 3-4 . NECK: Supple. No JVD. LUNGS: Clear to percussion and to auscultation. Good air exchange. No wheezing or rhonchi. HEART: S1, S2 regular. ABDOMEN: Soft and nontender.[] EXTREMITIES: No clubbing or cyanosis. HAZARDOUS WASTE MANAGEMENT SPECIALIST: Awake, alert, and oriented x3. No focal deficit. Impressions: 1. Obstructive sleep apnea-hypopnea syndrome. Patient demonstrated great compliance with treatment, benefiting from treatment. 2. Diabetes mellitus. 3. Hypertension. 4. 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 5. History of periodic limb movements, no problems at the present time. 6. History of increased eye pressure. 7. History of Mn[place] disease. 8. BPH. 9. Back problems. 10. History of broken neck. Plan: 1. Continue using PAP equipment every night for the whole night. 2. To change air filter at least 1-2 times per month. 3. PAP unit should stay lower then position of the head. 4. Advised patient to remove all remaining water from humidifier canister daily and make it dry after each usage. Refill canister with fresh distilled water before each usage. 5. Sleep hygiene with regular time in bed for at least 8 hours. 6. Precautions related to driving. No driving if feel any sleepiness. 7. I will maintain prescription for PAP supplies including mask, tube, filters. 8. Follow up visit in 6 months or earlier if patient has any problems. 9. Watching weight. Thank you very much for allowing me to participate in the management of your patient. Pierre Birmingham MD, PhD, FAASM. Diplomat of [place] [employer], Sleep Medicine Board by [place] [employer] C D Reactor Operator of [facility]
== END ==
LOC: 3 N SLEEP 11:01
PROVIDERS: ATTEND Internal Medicine
DX: G47.33 Obstructive sleep apnea (adult) (pediatric) (principal); E11.9 Type 2 diabetes mellitus without complications; I10 Essential (primary) hypertension; I25.10 Atherosclerotic heart disease of native coronary artery without angina pectoris; G47.61 Periodic limb movement disorder; H40.059 Ocular hypertension, unspecified eye; H81.09 Meniere's disease, unspecified ear; N40.0 Benign prostatic hyperplasia without lower urinary tract symptoms; M51.9 Unspecified thoracic, thoracolumbar and lumbosacral intervertebral disc disorder; Z98.890 Other specified postprocedural states; Z95.1 Presence of aortocoronary bypass graft; Z91.012 Allergy to eggs; Z91.011 Allergy to milk products; Z91.018 Allergy to other foods; Z91.048 Other nonmedicinal substance allergy status; Z79.82 Long term (current) use of aspirin; Z87.891 Personal history of nicotine dependence
CPT/HCPCS: 99212

== ENCOUNTER → 2023-10-31 | Outpatient (CLI) | payer MEDICARE ==
[~2023-10-31] MED LIST changes: -ACETAMINOPHEN TAB 500 MG TAB PO PRN; -GABAPENTIN 300 MG CAP PO PRN; -HYDROmorphone 0.5 MG/0.5 ML SYRINGE IVP PRN; -MELOXICAM 7.5 MG TAB PO PRN; -ONDANSETRON 4 MG/2 ML VIAL IVP ONE; +REGADENOSON 0.4 MG/5 ML SYRINGE IV PRN; -TRANEXAMIC ACID IN NACL,ISO-OS 1,000 MG in SALINE 1 100ML.BAG IVPB PRN; -fentaNYL (PF) 50 MCG/ML 2 ML AMP IV PRN
--- NOTE | 2023-10-31 13:11 | CA ---
Lexiscan Nuclear Stress Test Report Name: Jose Pierson Exam Date: 10/31/2023 11:16 Exam Location: [place] Stress Ht (in): 70 Wt (lb): 223 BSA: 2.19 Ordering Phys: Carla Terrazas DO Referring Phys: DANIEL, Technologist: Miguel Vann Age: 77 Gender: M : 1945 Procedure CPT: Indications: I25.10 HTN ICD-10 Codes: Patient History: Medications: Meds past 24 hrs: Pretest Chest Pain: STRESS TEST Lexiscan Protocol Exercise Duration (min:sec): 02:[address] Depressions (mm): Angina Score: Guillen Score: Resting HR (bpm): 55 Peak HR (bpm): 83 Resting BP (mmHg): 144 / 64 Peak BP (mmHg): 149 / 76 MPHR: 144 Target HR: 122 % MPHR: 58 METS: 1.0 Total Dose: Peak Dose: Atropine: Double Product: 34545 BP Response: Stress Termination: PROTOCOL COMPLETE Stress Symptoms: SOME CHEST PRESSURE Stress Summary: ECG ANALYSIS Resting ECG: Sinus rhythm. Right bundle branch block. No arrhythmias. Nonspecific ST-T abnormality. Stress ECG: No ECG changes from baseline with Lexiscan infusion. CONCLUSIONS No ECG evidence of ischemia with Lexiscan infusion. Nuclear test results to follow. Dr. Rosalind Castrejon MD (Electronically Signed) Final Date: 31 October 2023 13:10
--- NOTE | 2023-10-31 13:13 | NM ---
EXAMINATION TYPE: NM stress lexiscan cardiolite DATE OF EXAM: 10/31/2023 COMPARISON: NONE CLINICAL INDICATION: Male, 77 years old with history of I25.10 R07.89 I48.41 heart disease; TECHNIQUE: After the intravenous administration of 9.0 mCi Tc 99m Sestamibi - Cardiolite resting SPE CT images acquired 45 minutes post injection. The patient received 0.4mg Lexiscan, 24.3 mCi Tc 99m Sestamibi - Stress images obtained [address] injection FINDINGS: Review of stress and rest SPECT images demonstrates no distinct perfusion abnormality. Gated analysi s shows normal wall motion with an estimated left ventricular ejection fraction of 72 %. IMPRESSION: No scintigraphic evidence for reversible ischemia.
== END | disposition home or self-care (01) ==
LOC: RADNMMAIN 08:31
PROVIDERS: ATTEND Family Medicine
DX: I25.10 Atherosclerotic heart disease of native coronary artery without angina pectoris (principal); I10 Essential (primary) hypertension; R07.89 Other chest pain
CPT/HCPCS: 93017; 78452; A9500; J2785

== ENCOUNTER → 2024-01-08 | Outpatient (CLI) | payer MEDICARE ==
[2024-01-08 14:14] LABS: Partial Thromboplastin Time 25.2 sec (22.0-30.0); Prothrombin Time 10.6 sec (10.0-12.5)
[2024-01-08 20:03] LABS: HCT 39.2 % (39.6-50.0); HGB 13.1 g/dL (13.0-17.0); MCH 32.4 pg (27.0-32.0); MCHC 33.4 g/dL (32.0-37.0); Mean Platelet Volume 9.5 FL (9.5-12.2); NRBC Per 100 WBC 0 X 10*3/uL (0.00-0.01); Platelet Count 313 X 10*3/uL (140-440); RBC 4.04 X 10*6/uL (4.40-5.60); RDW 13.9 % (11.5-14.5)
[2024-01-08 21:43] LABS: ALT 28 U/L (10-49); AST 25 U/L (14-35); Albumin 4.3 g/dL (3.8-4.9); Albumin/Globulin Ratio 2.05 Ratio (1.60-3.17); Alkaline Phosphatase 80 U/L (41-126); BUN/Creat Ratio 21.64 Ratio (12.00-20.00); Blood Urea Nitrogen 30.3 mg/dL (9.0-27.0); Calcium 10.2 mg/dL (8.7-10.3); Carbon Dioxide 20.8 mmol/L (21.6-31.8); Chloride 103 mmol/L (96-109); Globulin 2.1 g/dL (1.6-3.3); Glucose 174 mg/dL (70-110); Potassium 4.6 mmol/L (3.5-5.5); Sodium 138 mmol/L (135-145); Total Bilirubin 0.3 mg/dL (0.3-1.2); Total Protein 6.4 g/dL (6.2-8.2)
== END | disposition home or self-care (01) ==
LOC: LABPAT 12:26
PROVIDERS: ATTEND Orthopaedic Surgery
DX: Z01.812 Encounter for preprocedural laboratory examination (principal); M17.11 Unilateral primary osteoarthritis, right knee; Z22.322 Carrier or suspected carrier of Methicillin resistant Staphylococcus aureus
CPT/HCPCS: 80053; 85027; 85610; 85730; 87070

== ENCOUNTER 2024-02-05 05:34 | Day surgery (SDC) | payer MEDICARE ==
[~2024-02-05 05:34] MED LIST changes: -REGADENOSON 0.4 MG/5 ML SYRINGE IV PRN; +TRANEXAMIC 1,000 MG/100ML-NACL 1,000 MG in SALINE 1 100ML.BAG IVPB PRN
[2024-02-05] MEDS ORDERED: LIDOCAINE 1% (10MG/ML) FOR IV START INTRADERMA PRN (05:47)
[2024-02-05] MEDS: LACTATED RINGERS 1,000 ML IV SCH (05:57)
[2024-02-05] MEDS: ACETAMINOPHEN TAB 500 MG TAB PO PRN (06:08)
[2024-02-05] MEDS: GABAPENTIN 300 MG CAP PO PRN (06:08)
[2024-02-05] MEDS: MELOXICAM 7.5 MG TAB PO PRN (06:08)
[2024-02-05 06:40] LABS: Glucose,Whole Blood 125 mg/dL (70-110)
[2024-02-05] MEDS: ONDANSETRON 4 MG/2 ML VIAL IVP PRN (06:41)
[2024-02-05] MEDS: DEXAMETHASONE SOD PHOSPHATE 4 MG/ML 1 ML VIAL IV ONE (06:41)
[2024-02-05] MEDS: MIDAZOLAM 2 MG/2 ML VIAL IVP ONE (06:45)
[2024-02-05] MEDS: ceFAZolin 1,000 MG in SODIUM CHLORIDE 0.9% 1,000 ML IRRIGATION ONE (07:10)
--- NOTE | 2024-02-05 08:19 | P.OP ---
Date of Procedure: 02/05/24 Preoperative Diagnosis: severe osteoarthritis right knee Postoperative Diagnosis: severe osteoarthritis right knee Procedure(s) Performed: right total knee arthroplasty Implants: Le[employer] Nephew Journey II CR Oxinium cruciate retaining femoral component size 6, right [employer] Journey nonporous tibial baseplate size 6, right [employer] Journey II, CR articular insert, size 9 mm, Size 5-6, right Le[employer]hew Journey Oriana II resurfacing patellar component, oval, 35 mm All components were cemented using Palacos R bone cement The articulation is Oxinium on polyethylene Anesthesia: GETA Surgeon: Ash Araujo Electronic Parts Salesperson #1: Irlanda Ackerman Estimated Blood Loss (ml): 30 Pathology: none sent Condition: stable Disposition: PACU Indications for Procedure: The patient's knee is end-stage, and conservative management has failed. The operation of knee replacement has been discussed at length in the office, as well as potential risks and complications. These are inclusive of, but not limited to: Infection, bleeding, scarring, discomfort, stiffness, blood vessel and nerve damage, need for further surgery, failure to relieve symptoms, persistence, recurrence, or worsening of problems, loosening, dislocation, wear, blood clot, pulmonary embolism, , gait dysfunction, stiffness, and other risks as discussed in the office. Patient elects to proceed and the consent form has been signed. Operative Findings: the operative findings are consistent with severe osteoarthritis of the right knee Description of Procedure: The patient was seen in the preoperative area, the consent was reviewed and the operative site was marked with a skin marker. The patient verified the procedure and the operative site. An adductor canal pain catheter and an iPACK block were placed by anesthesia in the preoperative area. The patient was then brought to the operating room and positioned on the operating room table in the supine position. Preoperative antibiotics and a gram of tranexamic acid were given intravenously. A general anesthetic was administered by the anesthesia department. Care was taken to make sure that all pressure points were adequately padded. A tourniquet was placed on the upper thigh and the lower extremity was prepped with ChloraPrep and draped in usual sterile fashion. A universal time-out was then performed which confirmed the patient's name, surgical site, ALLERGIES, and consent. The lower extremity was then exsanguinated and tourniquet was inflated to 250 mmHg. A standard anterior midline approach to the knee was performed. The skin and subcutaneous tissue were sharply dissected down to the patellar tendon. A medial parapatellar arthrotomy was then performed. The knee was then extended, the patellar was everted, and the knee was flexed. The infra-patellar fat pad was removed in order to enhance exposure. The anterior horns of both menisci were excised, and a release was performed to the posterior medial aspect of the knee. On gross visual inspection, there was complete loss of articular cartilage in the medial and patellofemoral joint spaces. There was also significant cartilage damage in the lateral compartment. There were multiple periarticular osteophytes globally about the knee which were then removed with a Ronguer. The femoral canal was then opened with the 9.5 mm intramedullary drill. The 8 mm intramedullary anamaria was then inserted into the femoral canal with the distal femoral cutting guide set for 5 of valgus. The distal femoral cutting block was then pinned in place. The intramedullary anamaria was then removed, and the distal femur was then cut. The cutting block was then removed and the cut was checked for symmetry. The resected bone was then measured to confirm the appropriate distal femoral resection. Next, the sizing guide was then placed and set for 3 external rotation based off of the epicondylar axis and [place]'s line. Pins were then placed and the drill holes, and the femur was sized with the sizing stylus. The pins were then removed, and the sizing guide was then removed. The spikes of the appropriate size femoral block was then placed into the predrilled holes, and malleted into place. Two 45 mm pins were then placed into the fixation holes on the cutting block. An kendell wing was then used to ensure there would be no notching with the anterior cut. The anterior condyles were cut without notching. The anterior chord cut was then performed, followed by the posterior cut, posterior chamfer cut, and the anterior chamfer cut. The collateral ligaments were protected during the entire process. The cutting block was then removed. Any remaining bone and osteophytes were removed from the femur with a Ronguer. Attention was then directed to the tibia. The remaining ACL was removed with a Ronguer, and the tibia was then gently subluxed forward with a large bent knee retractor. Any remaining menisci were excised. The posterior lateral corner was cauterized in order to coagulate the lateral geniculate artery. The extra medullary tibial cutting guide was then placed, set for the appropriate rotation, slope, and depth of resection. The proximal tibia cutting guide was then pinned in place. Proximal tibia was then cut and sized. A curved osteotome was then used to remove any posterior osteophytes from the distal fe mur. The femoral trial was placed. A narrow saw blade was then used to remove the anterior intracondylar femoral bone. The CR notch trial was then placed. The tibial trial was placed with the appropriate-sized insert. The knee was able to fully extend and flex to 130 and was stable throughout all range of motion. The knee was then extended and the patella was everted. Patella was then cristal sured, and then using an osteotomy guide, the patella was cut at the appropriate level. The patellar component was sized. The patellar drill guide was placed and the patella was drilled. The patella trial was then placed. The knee was then taken through range of motion with the patella trial and the patella tracked normally using the no thumbs technique. The patella trial was then removed. The knee was then flexed and lug holes were drilled through the femoral trial and the femoral trial was then removed. The tibial was then re- exposed, and the tibial broach guide was then pinned in place after it was set for the appropriate rotation to allow for the most coverage without overhang. The tibia was then reamed and broached. The femoral canal was plugged with autologous bone. The cut surfaces of bone were then irrigated with pulsatile lavage. The knee was also irrigated with Irrisept solution. The components were then opened, the cement was mixed. Cement was placed on the backside of the femoral, tibial, and patellar components. Cement was then applied to the tibial surface and pressurized into the surface using finger pressurization technique. The tibial component was th en applied and excess cement was removed after it was impacted securely noted to be flush with the cut surface. In similar fashion, the cement was applied to the cut femoral surface, pressurized and using finger pressurization the component was impacted in place. Excess cement was removed. The polyethylene spacer was then implanted and locked into position. Patellar component was then applied in a similar technique and the patellar clamp was used to hold patella in place while the cement hardened. The knee was held in full extension while the cement hardened. Once the cement had fully hardened, the knee was reinspected. Any other cement extrusion was removed the final range of motion testing showed range of motion from 0-130 with excellent stability, both medial and laterally and appropriate alignment of the leg. Patella tracked normally. After the cemented hardened, the tourniquet was released and hemostasis was obtained. A second gram of transexamic acid was given intravenously. The knee was again irrigated. The knee was again taken through range of motion and found to be stable throughout all range of motion of 0-130, and the patella tracked normally. The fascia was then closed with 0 Vicryl followed by #2 strata fix suture. The subcutaneous tissue was closed with 3-0 Vicryl and 3-0 strata fix. Exofin glue was used for the skin and placed with the knee in flexion. After the glue had dried, and Optafoam silver impregnated dressing was applied. A lightly compressive dressing was applied using web roll and Roque wrap. Patient was then transferred to the stretcher and taken to recovery room in stable condition. Sponge and needle counts were correct. The service assistant LIZBET Morel was required due the complexity surgery and the need for a skilled surgical consultant. She assisted in positioning, draping, retraction, and closure of the wound.
[2024-02-05] MEDS ORDERED: NALOXONE 0.4 MG/ML 1 ML VIAL IV PRN (08:51)
[2024-02-05] MEDS ORDERED: ONDANSETRON 4 MG/2 ML VIAL IVP PRN (08:51)
[2024-02-05] MEDS ORDERED: bisacodyL 10 MG SUPP RECTAL PRN (08:51)
[2024-02-05] MEDS ORDERED: HYDROmorphone 0.5 MG/0.5 ML SYRINGE IVP PRN ×3 (08:51)
[2024-02-05] MEDS ORDERED: NA PHOS,M-B/NA PHOS,DI-BA 133 ML ENEMA RECTAL PRN (08:51)
[2024-02-05] MEDS ORDERED: MAGNESIUM HYDROXIDE 2,400 MG/30 ML CUP PO PRN (08:51)
[2024-02-05] MEDS: HYDROmorphone 0.5 MG/0.5 ML SYRINGE IVP PRN (08:55)
[2024-02-05] MEDS: ROPIVACAINE 1,100 MG, SODIUM CHLORIDE 0.9% 500 ML 330 ML, EMPTY PAIN BALL 1 EACH MISCELLANE PRN (09:08)
[2024-02-05] MEDS: SODIUM CHLORIDE 0.9% 1,000 ML IV SCH (09:52)
--- NOTE | 2024-02-05 10:27 | XR ---
EXAMINATION TYPE: XR knee limited RT DATE OF EXAM: 02/05/2024 10:11 AM CLINICAL INDICATION:Male, 78 years old with history of Evaluation for Postop abnormality and alignmen t; [facility] COMPARISON: None. TECHNIQUE: XR knee limited RT; examined in Frontal, lateral projections. FINDINGS: Status post total knee arthroplasty changes with hardware in appropriate alignment and in tact. No evidence of fracture. Subcutaneous lucencies and lucencies within the joint consistent with surgical changes. IMPRESSION: Status post total knee arthroplasty changes with hardware intact and appropriate alignment. No fractu res identified.
[2024-02-05 11:41] LABS: Glucose,Whole Blood 190 mg/dL (70-110)
[2024-02-05 16:32] LABS: Glucose,Whole Blood 303 mg/dL (70-110)
[2024-02-05] MEDS ORDERED: DEXTROSE 50% SYRINGE 50 ML IVP PRN ×2 (17:50)
[2024-02-05] MEDS: INSULIN ASPART (NovoLOG) 100 UNIT/ML VIAL SQ SCH ×2 (18:23→20:27)
[2024-02-05 20:12] LABS: Glucose,Whole Blood 195 mg/dL (70-110)
[2024-02-05] MEDS: SENNOSIDES-DOCUSATE SODIUM 1 EACH TAB PO SCH (20:26)
[2024-02-05] MEDS: ASPIRIN 325 MG TAB PO SCH (20:26)
[2024-02-05] MEDS: HYDROcodone/APAP 7.5-325MG 1 EACH TAB PO PRN (20:27)
[2024-02-06] MEDS: HYDROcodone/APAP 7.5-325MG 1 EACH TAB PO PRN (02:09)
[2024-02-06 03:56] VITALS: RESP 16
[2024-02-06 06:37] LABS: Glucose,Whole Blood 105 mg/dL (70-110)
[2024-02-06] MEDS: LISINOPRIL-HCTZ 20-25 MG 1 EACH TAB PO SCH (08:17)
[2024-02-06 08:24] VITALS: BP 114/55; PULSE 63; TEMP 97.7
--- NOTE | 2024-02-06 09:22 | P.PN ---
Progress Note - Text 02/06/24 621am 78-year-old male status post total knee replacement. Patient has an On-Q pump for postop pain control with a solution running at 8 cc an hour with a VAS of 6, dressing clean dry and intact. Plan to continue On-Q pump infusion
--- NOTE | 2024-02-06 09:25 | P.ANPRN ---
Procedure Note - Anesthesia - Nerve Block Performed Right Adductor Canal Infusion Time Out Performed: Yes Date of Procedure: 02/05/24 Procedure Start Time: 06:45 Procedure Stop Time: 06:52 Location of Patient: PreOp Indication: Acute Post-Operative Pain, Requested by Surgeon Sedation Type: Sedate with meaningful contact maintained Preparation: Sterile Prep, Sterile Dressing Position: Supine Catheter: Indwelling Needle Types: Pajunk Needle Gauge: 21 Ultrasound used to visualize needle placement: Yes Ultrasound used to observe medication spread: Yes Blood Aspirated: No Pain Paresthesia on Injection Noted: No Resistance on Injection: Normal Image Stored and Saved: Yes Events: Uneventful and Well Tolerated (Ropivacaine 0.5% 20 cc plus dexamethasone 4 mg)
--- NOTE | 2024-02-06 09:26 | P.ANPRN ---
Procedure Note - Anesthesia - Nerve Block Performed Right Catherineck Single Time Out Performed: Yes Date of Procedure: 02/05/24 Procedure Start Time: 06:53 Procedure Stop Time: 06:56 Location of Patient: PreOp Indication: Acute Post-Operative Pain, Requested by Surgeon Sedation Type: Sedate with meaningful contact maintained Preparation: Sterile Prep Position: Supine Needle Types: Pajunk Needle Gauge: 21 Ultrasound used to visualize needle placement: Yes Ultrasound used to observe medication spread: Yes Blood Aspirated: No Pain Paresthesia on Injection Noted: No Resistance on Injection: Normal Image Stored and Saved: Yes Events: Uneventful and Well Tolerated (Ropivacaine 0.5% 25 cc plus dexamethasone 4 mg)
[2024-02-06 09:39] LABS: HCT 37.4 % (39.6-50.0); MCH 31.7 pg (27.0-32.0); MCHC 32.1 g/dL (32.0-37.0); MCV 98.7 FL (80.0-97.0); Mean Platelet Volume 9.5 FL (9.5-12.2); NRBC Per 100 WBC 0 X 10*3/uL (0.00-0.01); Platelet Count 267 X 10*3/uL (140-440); RBC 3.79 X 10*6/uL (4.40-5.60); RDW 13.8 % (11.5-14.5); WBC 17.35 X 10*3/uL (4.50-10.00)
[2024-02-06 09:40] LABS: Basophils # (A) 0.03 X 10*3/uL (0.00-0.10); Basophils % (A) 0.2 %; Eosinophils # (A) 0.01 X 10*3/uL (0.04-0.35); Eosinophils % (A) 0.1 %; Lymphocytes # (A) 1.78 X 10*3/uL (0.90-5.00); Lymphocytes % (A) 10.3 %; Monocytes # (A) 1.13 X 10*3/uL (0.20-1.00); Monocytes % (A) 6.5 %; Neutrophils # (A) 14.32 X 10*3/uL (1.80-7.70); Neutrophils % (A) 82.4 %
--- NOTE | 2024-02-06 10:53 | P.DS ---
Providers Expected date of discharge: 02/06/24 Attending physician: Ash Araujo Consults: 02/05/24 17:44 Consult Physician Routine Consulting Provider: Aaron Terrazas Consult Reason/Comments: Medical management Do you want consulting provider notified?: Yes Primary care physician: Carla Terrazas - Discharge Diagnosis(es) (1) Osteoarthritis of right knee Current Visit: Yes Status: Acute (2) S/P total knee arthroplasty Current Visit: Yes Status: Acute Hospital Course: This is a 78-year-old male with known history of degenerative arthritis of the right knee. The patient presented for evaluation as an outpatient. After discussion and consideration patient elects to proceed with total knee arthroplasty. The patient is seen preoperatively by Dr. Araujo and medically cleared for surgery by their primary care physician. Patient is admitted to [facility] on 02/05/2024 for total knee arthroplasty. The procedure is performed without complication or sequelae. The patient is doing well postoperatively. Labs and vital signs are stable on day of discharge. On day of discharge patient's knee incision is healing well. There is minimal erythema. There is no drainage noted at this time. There is minimal soft tissue swelling to the knee. Patient has full foot and ankle motion without difficulty or pain. Calf is soft and nontender to palpation. Neurovascular status to the right lower extremity is intact. Patient is discharged home in good condition. Please see med rec for accurate list of home medications. Plan - Discharge Summary Discharge Rx Participant: Yes New Discharge Prescriptions: New Aspirin 325 mg PO BID #60 tab HYDROcodone/APAP 7.5-325MG [[place] 7.5-325] 1 - 2 tab PO Q6H PRN #32 tab PRN Reason: Pain Sennosides [Senokot] 2 tab PO DAILY PRN #60 tablet PRN Reason: Constipation No Action Lisinopril-Hctz 20-25 mg [Zestoretic 20-25] 1 tab PO QAM allopurinoL [Zyloprim] 300 mg PO DAILY Nitroglycerin Sl Tabs [Nitrostat] 0.4 mg SUBLINGUAL Q5M PRN PRN Reason: Chest Pain Montelukast [Singulair] 10 mg PO DAILY Atorvastatin [Lipitor] 20 mg PO DAILY Cyclobenzaprine [Flexeril] 5 mg PO DAILY PRN PRN Reason: Pain Vitamin B Complex/Folic Acid [B-Complex Tablet] 1 tab PO DAILY Cholecalciferol (Vitamin D3) [Vitamin D3] 125 mcg PO DAILY Repaglinide [Prandin] 1 mg PO QAM Repaglinide [Prandin] 2 mg PO W/SUPPER Famotidine [Pepcid] 40 mg PO HS Finasteride [Proscar] 5 mg PO DAILY Aspirin [Adult Low Dose Aspirin EC] 81 mg PO DAILY Metformin (Unknown) 500 mg PO 1200 Pioglitazone [Actos] 15 mg PO DAILY Discharge Medication List Lisinopril-Hctz 20-25 mg [Zestoretic 20-25] 1 tab PO QAM 09/06/17 [History] allopurinoL [Zyloprim] 300 mg PO DAILY 09/06/17 [History] Nitroglycerin Sl Tabs [Nitrostat] 0.4 mg SUBLINGUAL Q5M PRN 10/02/17 [History] Atorvastatin [Lipitor] 20 mg PO DAILY 06/15/20 [History] Cyclobenzaprine [Flexeril] 5 mg PO DAILY PRN 06/15/20 [History] Montelukast [Singulair] 10 mg PO DAILY 06/15/20 [History] Cholecalciferol (Vitamin D3) [Vitamin D3] 125 mcg PO DAILY 06/17/20 [History] Vitamin B Complex/Folic Acid [B-Complex Tablet] 1 tab PO DAILY 06/17/20 [History] Repaglinide [Prandin] 1 mg PO QAM 11/25/20 [History] Finasteride [Proscar] 5 mg PO DAILY 07/05/21 [History] Aspirin [Adult Low Dose Aspirin EC] 81 mg PO DAILY 01/26/22 [History] Repaglinide [Prandin] 2 mg PO W/SUPPER 02/07/22 [History] Metformin (Unknown) 500 mg PO 1200 01/18/23 [History] Famotidine [Pepcid] 40 mg PO HS 11/23/23 [History] Pioglitazone [Actos] 15 mg PO DAILY 11/23/23 [History] Aspirin 325 mg PO BID #60 tab 02/05/24 [Rx] HYDROcodone/APAP 7.5-325MG [[place] 7.5-325] 1 - 2 tab PO Q6H PRN #32 tab 02/05/24 [Rx] Sennosides [Senokot] 2 tab PO DAILY PRN #60 tablet 02/05/24 [Rx] Follow up Appointment(s)/Referral(s): Ash Araujo DO [Doctor of Osteopathic Medicine] - 2 Weeks Activity/Diet/Wound Care/Special Instructions: Weightbearing as tolerated with a walker. CPM 5-6h daily as tolerated. Leave dressing intact. Dressing may be removed by home care nurse or by patient in 7 days. Then change dressing twice daily until follow up. May shower with initial dressing intact and after removal. If dressing become saturated, please remove. Recommend use of compression stockings daily until follow up to help prevent swelling and blood clots. May remove at night before sleeping. Please take aspirin 325mg twice daily for 30 days to prevent blood clots. Please follow up with [facility] and call with any questions or concerns, . Discharge Disposition: HOME WITH HOME HEALTH SERVICES
[2024-02-06 11:10] LABS: Glucose,Whole Blood 152 mg/dL (70-110)
--- NOTE | 2024-02-06 15:08 | P.CONS ---
History of Present Illness - Reason for Consult Consult date: 02/06/24 Medical management Requesting physician: Ash Araujo - Chief Complaint Right knee osteoarthritis - History of Present Illness This is a 78-year-old gentleman with past medical history significant for CAD, CABG, diabetes mellitus, deafness, hypertension, hyperlipidemia, rheumatoid arthritis, sleep apnea, former nicotine dependence,BPH, Mnire's and multiple other medical issues status post total right knee arthroplasty. Tolerated procedure well. Pain improving. Has not yet ambulated. PT pending. Positive diet intake with no nausea vomiting or diarrhea. Passing flatus. Denies chest pain, palpitations or shortness of breath. Denies lightheadedness, dizziness or focal deficits. Review of Systems Review of Systems Constitutional: Denied any fatigue denied any fever. Cardio vascular: denied any chest pain, palpitations Gastrointestinal denied any nausea vomiting Pulmonary: Denied any shortness of breath cough Neurologic denied any new focal deficits ROS Statement: Those systems with pertinent positive or pertinent negative responses have been documented in the HPI. ROS Other: All systems not noted in ROS Statement are negative. Past Medical History Past Medical History: Coronary Artery Disease (CAD), Diabetes Mellitus, GERD/Reflux, Hearing Disorder / Deafness, Hyperlipidemia, Hypertension, Musculoskeletal Disorder, Osteoarthritis (OA), Prostate Disorder, Rheumatoid Arthritis (RA), Sleep Apnea/CPAP/BIPAP Additional Past Medical History / Comment(s): Problem with balance, Menieres, neck and back pain, bilat arm/hand pain w/ NT, hx of gout, elevated PSA, BPH , uses machine for bibpap. 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 History of Any Multi-Drug Resistant Organisms: None Reported Past Surgical History: Back Surgery, Coronary Bypass/CABG, Heart Catheterizatio n, Joint Replacement, Orthopedic Surgery Additional Past Surgical History / Comment(s): 1996 CABG X3, bilateral carpal tunnel release, cervical fusion, Lumbar fusion L4-5-6 x2, Pain Clinic Procedures. egd , colonoscopy, left shoulder replaced 2022, injections to right knee for arthritis Past Anesthesia/Blood Transfusion Reactions: No Reported Reaction Additional Past Anesthesia/Blood Transfusion Reaction / Comm: no blood transfusion reaction Past Psychological History: No Psychological Hx Reported Additional Psychological History / Comment(s): . Smoking Status: Former smoker Past Alcohol Use History: None Reported Additional Past Alcohol Use History / Comment(s): Quit chew & smoking at age 35, smoked for 20 yrs, 2-7 PPD, used to drink etoh heavily/quit 40years ago. Past Drug Use History: None Reported - Past Family History Mother Family Medical History: Cancer Additional Family Medical History / Comment(s): liver and colon Medications and Allergies Home Medications Medication Instructions Recorded Confirmed Type Lisinopril-Hctz 20-25 mg 1 tab PO QAM 09/06/17 02/05/24 History [Zestoretic 20-] allopurinoL [Zyloprim] 300 mg PO DAILY 09/06/17 02/05/24 History Nitroglycerin Sl Tabs [Nitrostat] 0.4 mg SUBLINGUAL Q5M PRN 10/02/17 02/05/24 History Atorvastatin [Lipitor] 20 mg PO DAILY 06/15/20 02/05/24 History Cyclobenzaprine [Flexeril] 5 mg PO DAILY PRN 06/15/20 02/05/24 History Montelukast [Singulair] 10 mg PO DAILY 06/15/20 02/05/24 History Cholecalciferol (Vitamin D3) 125 mcg PO DAILY 06/17/20 02/05/24 History [Vitamin D3] Vitamin B Complex/Folic Acid 1 tab PO DAILY 06/17/20 02/05/24 History [B-Complex Tablet] Repaglinide [Prandin] 1 mg PO QAM 11/25/20 02/05/24 History Finasteride [Proscar] 5 mg PO DAILY 07/05/21 02/05/24 History Aspirin [Adult Low Dose Aspirin EC] 81 mg PO DAILY 01/26/22 02/05/24 History Repaglinide [Prandin] 2 mg PO W/SUPPER 02/07/22 02/05/24 History Metformin (Unknown) 500 mg PO 1200 01/18/23 02/05/24 History Famotidine [Pepcid] 40 mg PO HS 11/23/23 02/05/24 History Pioglitazone [Actos] 15 mg PO DAILY 11/23/23 02/05/24 History Aspirin 325 mg PO BID #60 tab 02/05/24 Rx HYDROcodone/APAP 7.5-325MG [[place] 1 - 2 tab PO Q6H PRN #32 tab 02/05/24 Rx 7.5-325] Sennosides [Senokot] 2 tab PO DAILY PRN #60 tablet 02/05/24 Rx Allergies Allergy/AdvReac Type Severity Reaction Status Date / Time almond Allergy Unknown Verified 02/05/24 06:04 black pepper Allergy Unknown Verified 02/05/24 06:04 coconut Allergy Unknown Verified 02/05/24 06:04 egg Allergy Unknown Verified 02/05/24 06:04 gluten Allergy Unknown Verified 02/05/24 06:04 milk Allergy Unknown Verified 02/05/24 06:04 oats Allergy Unknown Verified 02/05/24 06:04 peach Allergy Unknown Verified 02/05/24 06:04 pineapple Allergy Swelling Verified 02/05/24 06:04 tetanus and diphtheria Allergy Unknown Verified 02/05/24 06:04 toxoids tomato Allergy Unknown Verified 02/05/24 06:04 surgical adhesive tape AdvReac redness, Uncoded 02/05/24 06:04 raw, peeling of skin Physical Exam Vitals: Vital Signs Temp Pulse Resp BP Pulse Ox 02/06/24 07:02 97.7 F 63 16 114/55 100 02/06/24 03:16 97.8 F 68 16 117/60 98 02/05/24 18:57 97.5 F L 72 17 111/66 99 Intake and Output 02/05/24 02/06/24 02/06/24 22:59 06:59 14:59 Intake Total 540 Output Total 550 1300 Balance -10 -1300 Intake: Oral 540 Output: Urine 550 1300 Other: Voiding Method Urinal PHYSICAL EXAM: VITAL SIGNS: [As above] GENERAL: Alert and oriented x 3, sitting up in chair, no acute distress HEENT: Atraumatic, normocephalic, Conjunctivae normal. eyes normal. MMM. NECK: Supple, No JVD. CARDIOVASCULAR: S1, S2 regular.No murmur RESPIRATION: Unlabored, equal air entry, Breath sounds clear with diminished bases. No rhonchi or crackles. No bronchial breathing. ABDOMEN: Soft, nondistended, nontender . No guarding. no masses palpable. No guarding, no rigidity .+Bowel sounds. LEGS: Right lower extremity dressing clean dry and intact, minimal edema, no calf tenderness, positive DP pulse PSYCHIATRY: Alert and oriented X3, mood and affect normal. NERVOUS SYSTEM: Cranial N 2-12 grossly normal. No focal deficits. Strength and sensation grossly intact. Skin: Warm and dry, no rash Results CBC & Chem 7: 02/06/24 04:37 Labs: Abnormal Lab Results - Last 24 Hours (Table) 02/05/24 02/05/24 02/06/24 Range/Units 16:31 20:10 04:37 WBC (4.50-10.00) X 10*3/uL RBC (4.40-5.60) X 10*6/uL Hgb (13.0-17.0) g/dL Hct (39.6-50.0) % MCV (80.0-97.0) FL Immature Gran # (0.00-0.04) X 10*3/uL Neutrophils # (1.80-7.70) X 10*3/uL Monocytes # (0.20-1.00) X 10*3/uL Eosinophils # (0.04-0.35) X 10*3/uL POC Glucose (mg/dL) 303 H 195 H (70-110) mg/dL Hemoglobin A1c 6.9 H (<=6.0) % 02/06/24 02/06/24 Range/Units 04:37 11:09 WBC 17.35 H (4.50-10.00) X 10*3/uL RBC 3.79 L (4.40-5.60) X 10*6/uL Hgb 12.0 L (13.0-17.0) g/dL Hct 37.4 L (39.6-50.0) % MCV 98.7 H (80.0-97.0) FL Immature Gran # 0.08 H (0.00-0.04) X 10*3/uL Neutrophils # 14.32 H (1.80-7.70) X 10*3/uL Monocytes # 1.13 H (0.20-1.00) X 10*3/uL Eosinophils # 0.01 L (0.04-0.35) X 10*3/uL POC Glucose (mg/dL) 152 H (70-110) mg/dL Hemoglobin A1c (<=6.0) % Assessment and Plan Assessment: Osteoarthritis status post total right knee arthroplasty Diabetes mellitus, hemoglobin A1c 6.9 History of hypertension Hyperlipidemia Sleep apnea, wears CPAP Obesity, BMI 30 BPH Former nicotine dependence Plan: Continue on current medication regime ,monitoring and symptomatic treatm ent. PT pending. aggressive pulmonary toileting with incentive spirometer reinforced. Repeat blood pressure ordered. Discharge planning in progress. Follow-up with PCP in 1 week. thank you for the consult. The impression and plan of care has been dictated as directed. : I performed a history and examination of this patient, discussed the same with the dictator. I agree with the dictator's note ,documented as a scribe. Any additional findings or plans will be noted.
== END 2024-02-06 13:49 | disposition home health service (06) ==
LOC: OR 05:34 → 4SSUR 12:52 → OR 02-06 13:49
PROVIDERS: ATTEND Orthopaedic Surgery
DX: M17.11 Unilateral primary osteoarthritis, right knee (principal); G89.18 Other acute postprocedural pain; E78.5 Hyperlipidemia, unspecified; Z79.899 Other long term (current) drug therapy
CPT/HCPCS: 97161; 64999; 64448; 85025; 83036; 73560; 27447; C1713; C1776; C1751; J2250; J1100; J0690 ×2; J2405; J2795; J1170

== ENCOUNTER 2024-02-07 01:12 | Observation (INO) | payer MEDICARE ==
--- NOTE | 2024-02-07 01:29 | ED ---
General Adult HPI - General Source: patient, EMS, RN notes reviewed Mode of arrival: EMS Limitations: no limitations <Kunal Jauregui - Last Filed: 02/07/24 04:47> <Bradley Warren - Last Filed: 02/07/24 08:49> - General Chief complaint: Recheck/Abnormal Lab/Rx Stated complaint: rt groin Time Seen by Provider: 02/07/24 01:14 - History of Present Illness Initial comments: 78-year-old male presented to the ED with a chief complaint of groin pain. Patient reports he has known history of hernia and is. Reports over the past few days has been worsening in pain. States that he is normally able to reduce this and reports that he tried reducing this earlier today but was unable to do so and since then has had worsening pain of this. No changes in bowel or bladder habits. No fever or chills. No chest pain shortness of breath. No other complaints at this time. (Kunal Jauregui) - Related Data Home Medications Medication Instructions Recorded Confirmed Lisinopril-Hctz 20-25 mg 1 tab PO QAM 09/06/17 02/05/24 [Zestoretic 20-25] allopurinoL [Zyloprim] 300 mg PO DAILY 09/06/17 02/05/24 Nitroglycerin Sl Tabs [Nitrostat] 0.4 mg SUBLINGUAL Q5M PRN 10/02/17 02/05/24 Atorvastatin [Lipitor] 20 mg PO DAILY 06/15/20 02/05/24 Cyclobenzaprine [Flexeril] 5 mg PO DAILY PRN 06/15/20 02/05/24 Montelukast [Singulair] 10 mg PO DAILY 06/15/20 02/05/24 Cholecalciferol (Vitamin D3) 125 mcg PO DAILY 06/17/20 02/05/24 [Vitamin D3] Vitamin B Complex/Folic Acid 1 tab PO DAILY 06/17/20 02/05/24 [B-Complex Tablet] Repaglinide [Prandin] 1 mg PO QAM 11/25/20 02/05/24 Finasteride [Proscar] 5 mg PO DAILY 07/05/21 02/05/24 Aspirin [Adult Low Dose Aspirin EC] 81 mg PO DAILY 01/26/22 02/05/24 Repaglinide [Prandin] 2 mg PO W/SUPPER 02/07/22 02/05/24 Metformin (Unknown) 500 mg PO 1200 01/18/23 02/05/24 Famotidine [Pepcid] 40 mg PO HS 11/23/23 02/05/24 Pioglitazone [Actos] 15 mg PO DAILY 11/23/23 02/05/24 Previous Rx's Medication Instructions Recorded Aspirin 325 mg PO BID #60 tab 02/05/24 HYDROcodone/APAP 7.5-325MG [[place] 1 - 2 tab PO Q6H PRN #32 tab 02/05/24 7.5-325] Sennosides [Senokot] 2 tab PO DAILY PRN #60 tablet 02/05/24 Allergies Allergy/AdvReac Type Severity Reaction Status Date / Time almond Allergy Unknown Verified 02/05/24 06:04 black pepper Allergy Unknown Verified 02/05/24 06:04 coconut Allergy Unknown Verified 02/05/24 06:04 egg Allergy Unknown Verified 02/05/24 06:04 gluten Allergy Unknown Verified 02/05/24 06:04 milk Allergy Unknown Verified 02/05/24 06:04 oats Allergy Unknown Verified 02/05/24 06:04 peach Allergy Unknown Verified 02/05/24 06:04 pineapple Allergy Swelling Verified 02/05/24 06:04 tetanus and diphtheria Allergy Unknown Verified 02/05/24 06:04 toxoids tomato Allergy Unknown Verified 02/05/24 06:04 surgical adhesive tape AdvReac redness, Uncoded 02/05/24 06:04 raw, peeling of skin Review of Systems ROS Other: All systems not noted in ROS Statement are negative. <Kunal Jauregui - Last Filed: 02/07/24 04:47> ROS Other: All systems not noted in ROS Statement are negative. <Bradley Warren - Last Filed: 02/07/24 08:49> ROS Statement: Those systems with pertinent positive or pertinent negative responses have been documented in the HPI. Past Medical History Past Medical History: Coronary Artery Disease (CAD), Diabetes Mellitus, Hearing Disorder / Deafness, Hyperlipidemia, Hypertension, Musculoskeletal Disorder, Osteoarthritis (OA), Prostate Disorder, Rheumatoid Arthritis (RA), Sleep Apnea/CPAP/BIPAP Additional Past Medical History / Comment(s): Problem with balance, Menieres, neck and back pain, bilat arm/hand pain w/ NT, hx of gout, elevated PSA, BPH , uses machine for bibpa History of Any Multi-Drug Resistant Organisms: None Reported Past Surgical History: Back Surgery, Coronary Bypass/CABG, Heart Catheterization, Joint Replacement, Orthopedic Surgery Additional Past Surgical History / Comment(s): 1996 CABG X3, bilateral carpal tunnel release, cervical fusion, Lumbar fusion L4-5-6, Pain Clinic Procedures. egd , colonoscopy, left shoulder replaced 2022, injections to right knee for arthritis Past Anesthesia/Blood Transfusion Reactions: No Reported Reaction Additional Past Anesthesia/Blood Transfusion Reaction / Comment(s): no blood transfusion reaction Past Psychological History: No Psychological Hx Reported Smoking Status: Former smoker Past Alcohol Use History: None Reported Past Drug Use History: None Reported - Past Family History Mother Family Medical History: Cancer Additional Family Medical History / Comment(s): liver and colon <Kunal Jauregui - Last Filed: 02/07/24 04:47> General Exam Limitations: no limitations General appearance: alert, in no apparent distress Eye exam: Present: normal appearance Neck exam: Present: normal inspection Respiratory exam: Present: normal lung sounds bilaterally Cardiovascular Exam: Present: regular rate GI/Abdominal exam: Present: soft, normal bowel sounds. Absent: distended, tenderness, guarding, rebound, rigid exam: Present: other (Palpable hernia in the right groin which has no overlying skin changes.) Neurological exam: Present: alert, oriented X3 Skin exam: Present: warm, dry <Kunal Jauregui - Last Filed: 02/07/24 04:47> Course Vital Signs 02/07/24 02/07/24 02/07/24 01:14 03:39 05:43 Temperature 98.4 F Pulse Rate 83 93 83 Respiratory 18 16 18 Rate Blood Pressure 133/81 132/73 128/74 O2 Sat by Pulse 99 96 99 Oximetry 02/07/24 07:39 Temperature Pulse Rate 78 Respiratory 18 Rate Blood Pressure 141/75 O2 Sat by Pulse 98 Oximetry Medical Decision Making - Lab Data Result diagrams: 02/07/24 01:35 02/07/24 01:35 <Kunal Jauregui - Last Filed: 02/07/24 04:47> - Lab Data Result diagrams: 02/07/24 01:35 02/07/24 01:35 <KelvinBradley - Last Filed: 02/07/24 08:49> - Medical Decision Making Was pt. sent in by a medical professional or institution (, [facility], MATZO FORMING MACHINE OPERATOR, urgent care, hospital, or halfway...) When possible be specific @ -No Did you speak to anyone other than the patient for history (EMS, parent, family, police, friend...)? What history was obtained from this source @ -No Did you review nursing and triage notes (agree or disagree)? Why? @ -I reviewed and agree with nursing and triage notes Were old charts reviewed (outside hosp., previous admission, EMS record, old EKG, old radiological studies, urgent care reports/EKG's, halfway records)? Report findings @ -No old charts were reviewed Differential Diagnosis (chest pain, altered mental status, abdominal pain women, abdominal pain men, vaginal bleeding, weakness, fever, dyspnea, syncope, headache, dizziness, GI bleed, back pain, seizure, CVA, palpatations, mental health, musculoskeletal)? @ -Differential Abdominal Pain Men: Appendicitis, cholecystitis, diverticulosis, ischemic bowel, pancreatitis, hepatitis, UTI, gastroenteritis, AAA, incarcerated hernia, bowel obstruction, constipation, inflammatory bowel, hepatitis, peptic ulcer disease, splenic infar ction, perforated viscus, testicular torsion, this is not meant to be an all- inclusive list EKG interpreted by me (3pts min.). @ -None X-rays interpreted by me (1pt min.). @ -None done CT interpreted by me (1pt min.). @ -Pending U/S interpreted by me (1pt. min.). @ -None done What testing was considered but not performed or refused? (CT, X-rays, U/S, labs)? Why? @ -None What meds were considered but not given or refused? Why? @ -None Did you discuss the management of the patient with other professionals (professionals i.e. LIZBET Bautista, MATZO FORMING MACHINE OPERATOR, lab, RT, psych nurse, 7th grade social studies teacher, waterproofing mixer, teacher, chief accounting officer, vocational case manager)? Give summary @ -No Was smoking cessation discussed for >3mins.? @ -No Was critical care preformed (if so, how long)? @ -No Were there social determinants of health that impacted care today? How? (Homelessness, low income, unemployed, alcoholism, drug addiction, transportation, low edu. Level, literacy, decrease access to med. care, fdc, rehab)? @ -No Was there de-escalation of care discussed even if they declined (Discuss DNR or withdrawal of care, Hospice)? DNR status @ -No What co-morbidities impacted this encounter? (DM, HTN, Smoking, COPD, CAD, Cancer, CVA, ARF, Chemo, Hep., AIDS, mental health diagnosis, sleep apnea, morbid obesity)? @ -None Was patient admitted / discharged? Hospital course, mention meds given and route, prescriptions, significant lab abnormalities, going to OR and other pertinent info. @ -Pending 78-year-old male presents to the ED with complaints of right groin pain with concern of worsening hernia pain over the last few days especially after he attempted reducing earlier today. Laboratory studies reviewed. CBC does show elevated white blood cell count at 11.5, elevated neutrophils at 9.5 chemistry panel largely unremarkable. Lactic acid 1.0. UA unremarkable. At this time CT abdomen pelvis with contrast is pending and case signed out to my attending physician, Dr. Nelson, for further disposition. (Kunal Jauregui) Patient signed out to me pending results of CT imaging. Briefly, patient is a 78-year-old male who recently had right knee procedure 2 days ago and has a right lower extremity pain pump/nerve block currently in place who presents emergency department stating he popped his hernia on the right. Has a history of bilateral inguinal hernia status post repair with Dr. Ulrich. Presented last night for continued pain in the right groin. It has been ongoing for a few days. No change in stooling. No nausea or vomiting. Pain in the right groin. Laboratory studies were remarkable for slight leukocytosis of 11.5, as well as a normal lactic acid of 1.0. Remainder the labs relatively unremarkable. CT imaging has been pending for multiple hours as there is a delay overnight. CT imaging returned and is interpreted by myself as revealing no obvious acute complicated hernia. I was contacted by [facility] and they were concerned for possible IV drug use or findings related to recent surgical procedure which the patient did have in the right thigh as there is some gas and fluid located there. Patient did have the recent knee procedure as well as placement of the pain pump/nerve block in the right leg which is still present. This is likely what is being seen on imaging at this time. I discussed with the patient. He has received numerous doses of pain medications while here. I examined the patient as well and patient is tender in the inguinal region. We discussed findings on CT. He does endorse just having his knee procedure on February 04. I discussed with him and I would like to at least admitted to observation at this time. He was in agreement this plan. I spoke with Dr. Ulrich and he was in agreement plan for admission. I asked if he would like him to be n.p.o. and he states patient can eat now as he is unlikely to do any procedure today. Dr. Araujo was consulted for the recent knee pr ocedure. I spoke with Dr. Terrazas who accepted the admission. Diagnosis/symptom? @ -Inguinal hernia pain Acute, or Chronic, or Acute on Chronic? @ -Acute Uncomplicated (without systemic symptoms) or Complicated (systemic symptoms)? @ -Complicated Side effects of treatment? @ -None Exacerbation, Progression, or Severe Exacerbation] @ -No Poses a threat to life or bodily function? @ -Potential yes, if the hernia is complications. (Bradley Warren) - Lab Data Lab Results 02/07/24 02/07/24 02/07/24 Range/Units 01:35 01:35 02:10 WBC 11.5 H (3.8-10.6) k/uL RBC 3.89 L (4.30-5.90) m/uL Hgb 12.3 L (13.0-17.5) gm/dL Hct 37.8 L (39.0-53.0) % MCV 97.4 (80.0-100.0) fL MCH 31.7 (25.0-35.0) pg MCHC 32.6 (31.0-37.0) g/dL RDW 13.8 (11.5-15.5) % Plt Count 289 (150-450) k/uL MPV 7.9 Neutrophils % 83 % Lymphocytes % 9 % Monocytes % 6 % Eosinophils % 0 % Basophils % 0 % Neutrophils # 9.5 H (1.3-7.7) k/uL Lymphocytes # 1.1 (1.0-4.8) k/uL Monocytes # 0.7 (0-1.0) k/uL Eosinophils # 0.1 (0-0.7) k/uL Basophils # 0.0 (0-0.2) k/uL Sodium 135 L (137-145) mmol/L Potassium 4.6 (3.5-5.1) mmol/L Chloride 105 (98-107) mmol/L Carbon Dioxide 23 (22-30) mmol/L Anion Gap 7 mmol/L BUN 34 H (9-20) mg/dL Creatinine 1.20 (0.66-1.25) mg/dL Est GFR (CKD-EPI)AfAm 67 (>60 ml/min/1.73 sqM) Est GFR (CKD-EPI)NonAf 58 (>60 ml/min/1.73 sqM) Glucose 157 H (74-99) mg/dL Plasma Lactic Acid Link (0.7-2.0) mmol/L Calcium 8.9 (8.4-10.2) mg/dL Total Bilirubin 0.4 (0.2-1.3) mg/dL AST 22 (17-59) U/L ALT 17 (4-49) U/L Alkaline Phosphatase 69 (38-126) U/L Total Protein 6.0 L (6.3-8.2) g/dL Albumin 3.7 (3.5-5.0) g/dL Urine Color Colorless Urine Appearance Clear (Clear) Urine pH 5.0 (5.0-8.0) Ur Specific [place] 1.016 (1.001-1.035) Urine Protein Negative (Negative) Urine Glucose (UA) Negative (Negative) Urine Ketones Negative (Negative) Urine Blood Negative (Negative) Urine Nitrite Negative (Negative) Urine Bilirubin Negative (Negative) Urine Urobilinogen <2.0 (<2.0) mg/dL Ur Leukocyte Esterase Negative (Negative) 02/07/24 Range/Units 03:15 WBC (3.8-10.6) k/uL RBC (4.30-5.90) m/uL Hgb (13.0-17.5) gm/dL Hct (39.0-53.0) % MCV (80.0-100.0) fL MCH (25.0-35.0) pg MCHC (31.0-37.0) g/dL RDW (11.5-15.5) % Plt Count (150-450) k/uL MPV Neutrophils % % Lymphocytes % % Monocytes % % Eosinophils % % Basophils % % Neutrophils # (1.3-7.7) k/uL Lymphocytes # (1.0-4.8) k/uL Monocytes # (0-1.0) k/uL Eosinophils # (0-0.7) k/uL Basophils # (0-0.2) k/uL Sodium (137-145) mmol/L Potassium (3.5-5.1) mmol/L Chloride (98-107) mmol/L Carbon Dioxide (22-30) mmol/L Anion Gap mmol/L BUN (9-20) mg/dL Creatinine (0.66-1.25) mg/dL Est GFR (CKD-EPI)AfAm (>60 ml/min/1.73 sqM) Est GFR (CKD-EPI)NonAf (>60 ml/min/1.73 sqM) Glucose (74-99) mg/dL Plasma Lactic Acid Link 1.0 (0.7-2.0) mmol/L Calcium (8.4-10.2) mg/dL Total Bilirubin (0.2-1.3) mg/dL AST (17-59) U/L ALT (4-49) U/L Alkaline Phosphatase (38-126) U/L Total Protein (6.3-8.2) g/dL Albumin (3.5-5.0) g/dL Urine Color Urine Appearance (Clear) Urine pH (5.0-8.0) Ur Specific [place] (1.001-1.035) Urine Protein (Negative) Urine Glucose (UA) (Negative) Urine Ketones (Negative) Urine Blood (Negative) Urine Nitrite (Negative) Urine Bilirubin (Negative) Urine Urobilinogen (<2.0) mg/dL Ur Leukocyte Esterase (Negative) Disposition <Kunal Jauregui - Last Filed: 02/07/24 04:47> Time of Disposition: 07:42 <Bradley Warren - Last Filed: 02/07/24 08:49> Clinical Impression: Abdominal pain, Inguinal hernia Disposition: ADMITTED IP TO THIS [facility] Condition: Stable
[2024-02-07] MEDS: HYDROmorphone 1 MG/ML 1 ML SYRINGE IVP STA ×2 (01:39→07:36)
[2024-02-07] MEDS: SODIUM CHLORIDE 0.9% 1,000 ML IV STA ×2 (01:42→08:27)
[2024-02-07 02:13] LABS: Basophils % (A) 0 %; Eosinophils # (A) 0.1 k/uL (0-0.7); Eosinophils % (A) 0 %; HCT 37.8 % (39.0-53.0); HGB 12.3 gm/dL (13.0-17.5); Lymphocytes # (A) 1.1 k/uL (1.0-4.8); Lymphocytes % (A) 9 %; MCH 31.7 pg (25.0-35.0); MCHC 32.6 g/dL (31.0-37.0); MCV 97.4 fL (80.0-100.0); Mean Platelet Volume 7.9; Monocytes # (A) 0.7 k/uL (0-1.0); Monocytes % (A) 6 %; Neutrophils # (A) 9.5 k/uL (1.3-7.7); Neutrophils % (A) 83 %; Platelet Count 289 k/uL (150-450); RBC 3.89 m/uL (4.30-5.90); RDW 13.8 % (11.5-15.5); WBC 11.5 k/uL (3.8-10.6)
[2024-02-07 02:20] LABS: ALT 17 U/L (4-49); AST 22 U/L (17-59); African American GFR (CKD) 67 (>60 ml/min/1.73 sqM); Albumin 3.7 g/dL (3.5-5.0); Alkaline Phosphatase 69 U/L (38-126); Anion Gap 7 mmol/L; Blood Urea Nitrogen 34 mg/dL (9-20); Calcium 8.9 mg/dL (8.4-10.2); Carbon Dioxide 23 mmol/L (22-30); Chloride 105 mmol/L (98-107); Glucose 157 mg/dL (74-99); Non-African American GFR(CKD) 58 (>60 ml/min/1.73 sqM); Potassium 4.6 mmol/L (3.5-5.1); Sodium 135 mmol/L (137-145); Total Bilirubin 0.4 mg/dL (0.2-1.3)
[2024-02-07] MEDS: HYDROmorphone 1 MG/ML 1 ML SYRINGE IM STA (03:06)
[2024-02-07 03:14] LABS: Appearance,Urine Clear (Clear); Bilirubin,Urine Negative (Negative); Blood,Urine Negative (Negative); Color,Urine Colorless; Glucose,Urine (UA) Negative (Negative); Ketones,Urine Negative (Negative); Leukocyte Esterase,Urine Negative (Negative); Nitrite,Urine Negative (Negative); Protein,Urine Negative (Negative); Specific Gravity,Urine 1.016 (1.001-1.035); Urobilinogen,Urine <2.0 mg/dL (<2.0)
[2024-02-07] MEDS: ACETAMINOPHEN TAB 500 MG TAB PO STA (03:42)
--- NOTE | 2024-02-07 07:24 | CT ---
EXAM: CT Abdomen and Pelvis With Intravenous Contrast CLINICAL HISTORY: ITS.REASON CT Reason: hx r hernia inguinal/femoral, increased pain TECHNIQUE: Axial computed tomography images of the abdomen and pelvis with intravenous contrast. CTDI is 25.3 mGy and DLP is 2103.7 mGy-cm. This CT exam was performed using one or more of the following dose reduction techniques: automated exposure control, adjustment of the mA and/or kV according to patient size, and/or use of iterative reconstruction technique. COMPARISON: CT Abdomen Pelvis dated september 06 2017 FINDINGS: Lung bases: Unremarkable. No mass. No consolidation. Heart: Coronary artery calcifications. Mitral annular calcifications. ABDOMEN: Liver: Unremarkable. No mass. Gallbladder and bile ducts: Prominent gallbladder measuring 10.1 cm in length and 4.9 cm in diameter. Findings may be related to prandial state. Cholecystitis is less likely. Pancreas: Unremarkable. No mass. No ductal dilation. Spleen: Unremarkable. No splenomegaly. Adrenals: Unremarkable. No mass. Kidneys and ureters: Unremarkable. No solid mass. No hydronephrosis. Stomach and bowel: No evidence of bowel obstruction. No mucosal thickening. PELVIS: Appendix: Normal appendix. Bladder: Unremarkable. No mass. Reproductive: Unremarkable as visualized. ABDOMEN and PELVIS: Intraperitoneal space: Unremarkable. No free air. No significant fluid collection. Bones/joints: Degenerative changes in the spine. Flowing osteophyte formations in the spine compatible with diffuse idiopathic skeletal hyperostosis (DISH). No acute fracture. No dislocation. Soft tissues: Gas and fluid noted along the right inguinal region. Findings may relate to intervention. This is incompletely visualized. Associated adjacent stranding noted. Superposed infection is not excluded. Radiopaque foreign body noted within the right inguinal region measuring 1.7 cm in length and 0.2 cm in diameter. This is incompletely visualized and new from prior study September 06, 2017. Findings may be postsurgical in nature. Bilateral inguinal surgical clips which are new from prior study. Right inguinal hernia containing fat. Vasculature: Atherosclerotic disease. Lymph nodes: Unremarkable. No enlarged lymph nodes. IMPRESSION: 1. Gas and fluid noted along the right inguinal region. Findings may relate to intervention. This is incompletely visualized. Associated adjacent stranding noted. Superposed infection is not excluded. 2. Radiopaque foreign body noted within the right inguinal region measuring 1.7 cm in length and 0.2 cm in diameter. This is incompletely visualized and new from prior study September 06, 2017. Findings may be postsurgical in nature. 3. Bilateral inguinal surgical clips which are new from prior study. 4. Prominent gallbladder measuring 10.1 cm in length and 4.9 cm in diameter. Findings may be related to prandial state. Cholecystitis is less likely. 5. No other acute findings. 6. Incidental findings as described. <MYCVCSECTION> Communications: 02/07/24 07:22 Call Doctor Regarding Above results, called Dr. Warren on 02/06 07:22 (-04:00)
[2024-02-07] MEDS ORDERED: ONDANSETRON 4 MG/2 ML VIAL IVP PRN (07:36)
[2024-02-07] MEDS ORDERED: NALOXONE 0.4 MG/ML 1 ML VIAL IV PRN (07:38)
[2024-02-07] MEDS: PANTOPRAZOLE 40 MG/10 ML VIAL IVP SCH (08:27)
[2024-02-07] MEDS: HEPARIN SODIUM,PORCINE 5,000 UNIT/ML 1 ML VIAL SQ SCH (08:27)
[2024-02-07] MEDS ORDERED: DEXTROSE 50% SYRINGE 50 ML IVP PRN ×2 (10:32)
[2024-02-07] MEDS ORDERED: NITROGLYCERIN SL TABS 0.4 MG TAB SUBLINGUAL PRN (10:33)
[2024-02-07] MEDS ORDERED: SENNOSIDES 8.6 MG TAB PO PRN (10:33)
--- NOTE | 2024-02-07 10:39 | P.CONS ---
History of Present Illness - Reason for Consult Consult date: 02/07/24 Right inguinal hernia Requesting physician: Ryan Ulrich - Chief Complaint Right inguinal hernia pain - History of Present Illness This is a 78-year-old gentleman past medical history significant for CAD, CABG, diabetes mellitus, deafness, hypertension, hyperlipidemia, rheumatoid arthritis, sleep apnea, former nicotine dependence,BPH, Mnire's and multiple other medic al issues discharged yesterday status post total right knee arthroplasty. Returned back to the ER yesterday with worsening right groin hernia pain. Apologetically, patient disclosed that he actually had been having right inguinal hernia groin pain prior to his scheduled knee surgery but did not want to delay his surgery. Reports worsened with "movement, riding or bouncing." Denies numbness or tingling. Denies lightheadedness dizziness or focal deficits. Denies chest pain, palpitations or shortness of breath. Afebrile, WBC 11.5, hemoglobin 12.3, platelets 13.8, bicarb 23, BUN 34, creatinine 1.2. Glucose 157. UA negative CT of abdomen pelvis reported gas and fluid noted along the right inguinal region incompletely visualized, associated adjacent stranding noted, super postinfection not excluded, radiopaque foreign body noted within the right inguinal region measuring 1.7 cm in length and 0.2 cm in diameter, incompletely visualized and new from prior study August 2017, may be postsurgical in nature, bilateral inguinal surgical clips which are new from prior study, prominent gallbladder, cholecystitis less likely. Review of Systems ROS Statement: Those systems with pertinent positive or pertinent negative responses have been documented in the HPI. ROS Other: All systems not noted in ROS Statement are negative. 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 egd , colonoscopy, left shoulder replaced 2022, injections to right knee for arthritis Past Anesthesia/Blood Transfusion Reactions: No Reported Reaction Additional Past Anesthesia/Blood Transfusion Reaction / Comm: no blood transfusion reaction Past Psychological History: No Psychological Hx Reported Smoking Status: Former smoker Past Alcohol Use History: None Reported Past Drug Use History: None Reported - Past Family History Mother Family Medical History: Cancer Additional Family Medical History / Comment(s): liver and colon Medications and Allergies Home Medications Medication Instructions Recorded Confirmed Type Lisinopril-Hctz 20-25 mg 1 tab PO QAM 09/06/17 02/07/24 History [Zestoretic -] allopurinoL [Zyloprim] 300 mg PO DAILY 09/06/17 02/07/24 History Nitroglycerin Sl Tabs [Nitrostat] 0.4 mg SUBLINGUAL Q5M PRN 10/02/17 02/07/24 History Atorvastatin [Lipitor] 20 mg PO DAILY 06/15/20 02/07/24 History Cyclobenzaprine [Flexeril] 5 mg PO BID PRN 06/15/20 02/07/24 History Montelukast [Singulair] 10 mg PO DAILY 06/15/20 02/07/24 History Cholecalciferol (Vitamin D3) 125 mcg PO DAILY 06/17/20 02/07/24 History [Vitamin D3] Vitamin B Complex/Folic Acid 1 tab PO DAILY 06/17/20 02/07/24 History [B-Complex Tablet] Repaglinide [Prandin] 1 mg PO W/BRKFST 11/25/20 02/07/24 History Finasteride [Proscar] 5 mg PO DAILY 07/05/21 02/07/24 History Repaglinide [Prandin] 2 mg PO W/SUPPER 02/07/22 02/07/24 History Famotidine [Pepcid] 40 mg PO BID 11/23/23 02/07/24 History Pioglitazone [Actos] 15 mg PO DAILY 11/23/23 02/07/24 History Aspirin 325 mg PO BID #60 tab 02/05/24 02/07/24 Rx HYDROcodone/APAP 7.5-325MG [[place] 1 - 2 tab PO Q6H PRN #32 tab 02/05/24 02/07/24 Rx 7.5-325] Sennosides [Senokot] 2 tab PO DAILY PRN #60 tablet 02/05/24 02/07/24 Rx metFORMIN HCL 500 mg PO BID 02/07/24 02/07/24 History Allergies Allergy/AdvReac Type Severity Reaction Status Date / Time almond Allergy Unknown Verified 02/07/24 08:58 black pepper Allergy Unknown Verified 02/07/24 08:58 coconut Allergy Unknown Verified 02/07/24 08:58 egg Allergy Unknown Verified 02/07/24 08:58 gluten Allergy Unknown Verified 02/07/24 08:58 milk Allergy Unknown Verified 02/07/24 08:58 oats Allergy Unknown Verified 02/07/24 08:58 peach Allergy Unknown Verified 02/07/24 08:58 pineapple Allergy Swelling Verified 02/07/24 08:58 tetanus and diphtheria Allergy Unknown Verified 02/07/24 08:58 toxoids tomato Allergy Unknown Verified 02/07/24 08:58 surgical adhesive tape AdvReac redness, Uncoded 02/05/24 06:04 raw, peeling of skin Physical Exam Vitals: Vital Signs Temp Pulse Resp BP Pulse Ox 02/07/24 07:39 78 18 141/75 98 02/07/24 05:43 83 18 128/74 99 02/07/24 03:39 93 16 132/73 96 02/07/24 01:14 98.4 F 83 18 133/81 99 Intake and Output 02/06/24 02/07/24 02/07/24 22:59 06:59 14:59 Other: Weight 95.254 kg PHYSICAL EXAM: VITAL SIGNS: [As above] GENERAL: Alert and oriented x 3, sitting up on stretcher, no acute distress HEENT: Atraumatic, normocephalic, Conjunctivae normal. eyes normal. MMM. NECK: Supple, No JVD. CARDIOVASCULAR: S1, S2 regular.No murmur RESPIRATION: Unlabored, equal air entry, Breath sounds clear with diminished bases. No rhonchi or crackles. No bronchial breathing. ABDOMEN: Soft, nondistended, nontender . No guarding. no masses palpable. No guarding, no rigidity .+Bowel sounds. Right groin tenderness, mesenteric. LEGS: Right lower extremity dressing clean dry and intact, minimal edema, no calf tenderness, positive DP pulse NERVOUS SYSTEM: Cranial N 2-12 grossly normal. No focal deficits. Strength and sensation grossly intact. Skin: Warm and dry, no rash Results CBC & Chem 7: 02/07/24 01:35 02/07/24 01:35 Labs: Abnormal Lab Results - Last 24 Hours (Table) 02/07/24 02/07/24 Range/Units 01:35 01:35 WBC 11.5 H (3.8-10.6) k/uL RBC 3.89 L (4.30-5.90) m/uL Hgb 12.3 L (13.0-17.5) gm/dL Hct 37.8 L (39.0-53.0) % Neutrophils # 9.5 H (1.3-7.7) k/uL Sodium 135 L (137-145) mmol/L BUN 34 H (9-20) mg/dL Glucose 157 H (74-99) mg/dL Total Protein 6.0 L (6.3-8.2) g/dL Assessment and Plan Assessment: Right lower abdominal pain, right inguinal hernia Osteoarthritis ,status post recent total right knee arthroplasty 02/05/2024 Diabetes mellitus, hemoglobin A1c 6.9 History of hypertension Hyperlipidemia Sleep apnea, wears CPAP Obesity, BMI 30 BPH Former nicotine dependence Plan: Continue on current medication regimen ,monitoring and symptomatic treatment. Right groin and testicular US ordered regarding mesenteric right inguinal hernia pain. MiraLAX daily for constipation. PT/OT consulted to continue as patient is a postop right total knee arthroplasty of 02/05/2024; continue previous DVT prophylaxis of aspirin 325 mg twice daily as recommended per orthopedic surgery yesterday at discharge. PPI ordered for GI prophylaxis. The impression and plan of care has been dictated as directed. : I performed a history and examination of this patient, discussed the same with the dictator. I agree with the dictator's note ,documented as a scribe. Any additional findings or plans will be noted.
--- NOTE | 2024-02-07 11:22 | P.CNOR ---
History of Present Illness - HPI Consult date: 02/07/24 History of present illness: This is a 78-year-old male who is admitted for hernia pain. Orthopedics is consulted due to recent right total knee arthroplasty on 02/05/[address] Ash Araujo. Patient states that his knee is doing well, but he developed pain in the right groin after discharge home yesterday and presented to the ER for further evaluation. Patient states that he has a history of a hernia repair and has been having more pain in this area recently. Patient denies any fever/chills, numbness, weakness or tingling. Review of Systems See HPI. Past Medical History Past Medical History: Coronary Artery Disease (CAD), Diabetes Mellitus, Hearing Disorder / Deafness, Hyperlipidemia, Hypertension, Musculoskeletal Disorder, Osteoarthritis (OA), Prostate Disorder, Rheumatoid Arthritis (RA), Sleep Apnea/CPAP/BIPAP Additional Past Medical History / Comment(s): Problem with balance, Menieres, neck and back pain, bilat arm/hand pain w/ NT, hx of gout, elevated PSA, BPH , uses machine for bibpa History of Any Multi-Drug Resistant Organisms: None Reported Past Surgical History: Back Surgery, Coronary Bypass/CABG, Heart Catheterization, Joint Replacement, Orthopedic Surgery Additional Past Surgical History / Comment(s): 1996 CABG X3, bilateral carpal tunnel release, cervical fusion, Lumbar fusion L4-5-6, Pain Clinic Procedures. egd , colonoscopy, left shoulder replaced 2022, injections to right knee for arthritis Past Anesthesia/Blood Transfusion Reactions: No Reported Reaction Additional Past Anesthesia/Blood Transfusion Reaction / Comm: no blood transfu ronit reaction Past Psychological History: No Psychological Hx Reported Smoking Status: Former smoker Past Alcohol Use History: None Reported Past Drug Use History: None Reported - Past Family History Mother Family Medical History: Cancer Additional Family Medical History / Comment(s): liver and colon Medications and Allergies Home Medications Medication Instructions Recorded Confirmed Type Lisinopril-Hctz 20-25 mg 1 tab PO QAM 09/06/17 02/07/24 History [Zestoretic 20-25] allopurinoL [Zyloprim] 300 mg PO DAILY 09/06/17 02/07/24 History Nitroglycerin Sl Tabs [Nitrostat] 0.4 mg SUBLINGUAL Q5M PRN 10/02/17 02/07/24 History Atorvastatin [Lipitor] 20 mg PO DAILY 06/15/20 02/07/24 History Cyclobenzaprine [Flexeril] 5 mg PO BID PRN 06/15/20 02/07/24 History Montelukast [Singulair] 10 mg PO DAILY 06/15/20 02/07/24 History Cholecalciferol (Vitamin D3) 125 mcg PO DAILY 06/17/20 02/07/24 History [Vitamin D3] Vitamin B Complex/Folic Acid 1 tab PO DAILY 06/17/20 02/07/24 History [B-Complex Tablet] Repaglinide [Prandin] 1 mg PO W/BRKFST 11/25/20 02/07/24 History Finasteride [Proscar] 5 mg PO DAILY 07/05/21 02/07/24 History Repaglinide [Prandin] 2 mg PO W/SUPPER 02/07/22 02/07/24 History Famotidine [Pepcid] 40 mg PO BID 11/23/23 02/07/24 History Pioglitazone [Actos] 15 mg PO DAILY 11/23/23 02/07/24 History Aspirin 325 mg PO BID #60 tab 02/05/24 02/07/24 Rx HYDROcodone/APAP 7.5-325MG [[place] 1 - 2 tab PO Q6H PRN #32 tab 02/05/24 02/07/24 Rx 7.5-325] Sennosides [Senokot] 2 tab PO DAILY PRN #60 tablet 02/05/24 02/07/24 Rx metFORMIN HCL 500 mg PO BID 02/07/24 02/07/24 History Allergies Allergy/AdvReac Type Severity Reaction Status Date / Time almond Allergy Unknown Verified 02/07/24 08:58 black pepper Allergy Unknown Verified 02/07/24 08:58 coconut Allergy Unknown Verified 02/07/24 08:58 egg Allergy Unknown Verified 02/07/24 08:58 gluten Allergy Unknown Verified 02/07/24 08:58 milk Allergy Unknown Verified 02/07/24 08:58 oats Allergy Unknown Verified 02/07/24 08:58 peach Allergy Unknown Verified 02/07/24 08:58 pineapple Allergy Swelling Verified 02/07/24 08:58 tetanus and diphtheria Allergy Unknown Verified 02/07/24 08:58 toxoids tomato Allergy Unknown Verified 02/07/24 08:58 surgical adhesive tape AdvReac redness, Uncoded 02/05/24 06:04 raw, peeling of skin Physical Examination On exam patient is lying comfortably in bed in no acute distress. Patient is alert and oriented x3. Dressing is clean, dry and intact. No drainage. No erythema. Calf is soft and nontender to palpation. Sensation intact. Patient has full range of motion of the foot and ankle. Neurovascular status and circulatory status are intact. Results - Labs Labs: Abnormal Lab Results - Last 24 Hours (Table) 02/07/24 02/07/24 Range/Units 01:35 01:35 WBC 11.5 H (3.8-10.6) k/uL RBC 3.89 L (4.30-5.90) m/uL Hgb 12.3 L (13.0-17.5) gm/dL Hct 37.8 L (39.0-53.0) % Neutrophils # 9.5 H (1.3-7.7) k/uL Sodium 135 L (137-145) mmol/L BUN 34 H (9-20) mg/dL Glucose 157 H (74-99) mg/dL Total Protein 6.0 L (6.3-8.2) g/dL H & H 02/07/24 Range/Units 01:35 Hgb 12.3 L (13.0-17.5) gm/dL Hct 37.8 L (39.0-53.0) % Result Diagrams: 02/07/24 01:35 02/07/24 01:35 Assessment and Plan (1) Abdominal pain Current Visit: Yes Status: Acute Code(s): R10.9 - UNSPECIFIED ABDOMINAL PAIN SNOMED Code(s): 72206484 (2) S/P total knee arthroplasty Current Visit: No Status: Acute Code(s): Z96.659 - PRESENCE OF UNSPECIFIED ARTIFICIAL KNEE JOINT SNOMED Code(s): 8113500361103 Plan: 1. Anticoagulation per internal medicine. Leave right knee surgical dressing intact x 7days. 2. Continue PT as tolerated. 3. This is postoperative day #2 following right total knee replacement. The right knee is progressing as expected and there is no issues regarding the right knee today. We will continue to follow as needed.
[2024-02-07] MEDS: FINASTERIDE 5 MG TAB PO SCH (11:27)
[2024-02-07] MEDS: polyethylene glycoL 3350 17 GM POWD.PACK PO SCH (11:27)
[2024-02-07] MEDS: REPAGLINIDE 1 MG TAB PO SCH ×2 (11:28→17:20)
[2024-02-07] MEDS: PIOGLITAZONE 15 MG TAB PO SCH (11:28)
--- NOTE | 2024-02-07 11:28 | US ---
EXAMINATION TYPE: US scrotum with doppler. Grayscale and color Doppler Duplex imaging performed of t [place] scrotum. DATE OF EXAM: 02/07/2024 COMPARISON: CT abdomen 02/07/2024 CLINICAL INDICATION: Male, 78 years old with history of inguinal hernia pain; Right hernia per CT don e today. Right groin pain. No testicular pain, swelling or redness. EXAM MEASUREMENTS: TESTICLES: Right Testicle: 4.7 x 4.0 x 2.4 cm Left Testicle: 4.3 x 3.5 x 2.5 cm EPIDIDYMIS HEAD: Right Epididymis: 1.1 x 0.9 x 0.7 cm Left Epididymis: 1.0 x 0.9 x 0.6 cm Doppler performed to assess for testicular vascularity; good bilateral color flow and waveforms are s een. There is no evidence of testicular torsion. Presence of hydroceles: Left Presence of varicoceles: Left Right epididymal head cysts with largest = 1.9 x 1.5 x 1.6 cm Right groin scanned with hernia visualized, valsalva performed with movement seen. No organizing fluid collections identified. IMPRESSION: 1. No evidence for intratesticular mass. 2. No organizing fluid collection. 3. Multiple right epididymal head simple appearing cyst. 4. Appropriate arterial and venous spectral waveforms to the testes. 5. Right inguinal hernia.
[2024-02-07 11:42] LABS: Glucose,Whole Blood 98 mg/dL (70-110)
[2024-02-07] MEDS: MORPHINE SULFATE 4 MG/ML SYRINGE IVP PRN (11:47)
[2024-02-07] MEDS: INSULIN ASPART (NovoLOG) 100 UNIT/ML VIAL SQ SCH (11:57)
[2024-02-07 14:30] VITALS: RESP 16
[2024-02-07] MEDS: HYDROcodone/APAP 7.5-325MG 1 EACH TAB PO PRN (15:31)
[2024-02-07] MEDS: ATORVASTATIN 20 MG TAB PO SCH (15:31)
--- NOTE | 2024-02-07 15:45 | P.GSHP ---
History of Present Illness H&P Date: 02/07/24 CHIEF COMPLAINT: Right groin pain HISTORY OF PRESENT ILLNESS: This is a 78-year-old male who presented to the hospital complaints of right groin pain. Patient reports on Monday he was tilling a garden for his . He came back into the house and had a bulge in the right groin with severe pain. He applied warm compresses and then reduce the hernia himself. He then proceeded to have knee surgery on Monday. And then Monday and today he again was having severe right groin pain. Currently the hernia is reduced. Patient reports having gas. Denies any nausea or vomiting he does have a prior history of bilateral inguinal hernia repair and umbilical hernia repair in 2018. CT scan abdomen and pelvis had reported gas and fluid noted along the right inguinal region. Associated adjacent stranding noted. Superimposed infection is not excluded. Radiopaque foreign body noted within the right inguinal region measuring 1.7 cm in length and 0.2 cm in diameter bilateral inguinal surgical clips which are new from prior study. Prominent gallbladder measuring 10.1 cm in length findings may be related to prandial state. Cholecystitis less likely. No other acute findings. PAST MEDICAL HISTORY: Coronary Artery Disease (CAD), Diabetes Mellitus, Hearing Disorder / Deafness, Hyperlipidemia, Hypertension, Musculoskeletal Disorder, Osteoarthritis (OA), Prostate Disorder, Rheumatoid Arthritis (RA), Sleep Apnea/CPAP/BIPAP, Problem with balance, Menieres, neck and back pain, bilat arm/hand pain w/ NT, hx of gout, elevated PSA, BPH , uses machine for bibpa PAST SURGICAL HISTORY: 1996 CABG X3, bilateral carpal tunnel release, cervical fusion, Lumbar fusion L4-5-6, Pain Clinic Procedures. egd , colonoscopy, left shoulder replaced 2022, injections to right knee for arthritis MEDICATIONS: See below ALLERGIES: See below SOCIAL HISTORY: No illicit drug use. REVIEW OF SYSTEMS: CONSTITUTIONAL: Denies fever or chills. HEENT: Denies blurred vision, vision changes, or eye pain. Denies hemoptysis CARDIOVASCULAR: Denies chest pain or pressure. RESPIRATORY: No shortness of breath. GASTROINTESTINAL: See HPI for pertinent findings HEMATOLOGIC: Denies bleeding disorders. GENITOURINARY: Denies any blood in urine or increased urinary frequency. SKIN: Denies pruitis. Denies rash. PHYSICAL EXAM: VITAL SIGNS: Reviewed GENERAL: Well-developed in no acute distress. HEENT: No sclera icterus. Extraocular movements grossly intact. Moist buccal mucosa. Head is atraumatic, normocephalic. No nasal drainage. ABDOMEN: Soft. Nondistended. Tenderness to palpation to the right groin. No hernia bulge noted at this time NEUROLOGIC: Alert and oriented. Cranial nerves II through XII grossly intact. LABORATORY DATA: WBC 11.5 Hgb 12.3 platelets 289 Sodium is 135 potassium is 4.6 creatinine 1.20 Lactic acid 1.0 AST 22 ALT 17 Urinalysis negative IMAGING: Ultrasound scrotum no evidence for intratesticular mass. No organizing fluid collection multiple right epididymal head simple appearing cysts. Appropriate arterial and venous waveforms to the testes. Right inguinal hernia CT scan abdomen pelvis as stated above ASSESSMENT: 1. Right groin pain likely due to right inguinal hernia. Currently reduced. CT scan does report gas and fluid noted along the right inguinal region. 2. Prior history of bilateral inguinal hernia repair and umbilical hernia repair in 2018 PLAN: -No surgical intervention planned at this time -Recommend outpatient follow-up for right inguinal hernia repair -Continue pain management Case reviewed with Dr. Ulrich Physician Broadcast Director Operations note has been reviewed by physician. Signing provider agrees with the documented findings, assessment, and plan of care. Past Medical History Past Medical History: Coronary Artery Disease (CAD), Diabetes Mellitus, Hearing Disorder / Deafness, Hyperlipidemia, Hypertension, Musculoskeletal Disorder, Osteoarthritis (OA), Prostate Disorder, Rheumatoid Arthritis (RA), Sleep Apnea/CPAP/BIPAP Additional Past Medical History / Comment(s): Problem with balance, Menieres, neck and back pain, bilat arm/hand pain w/ NT, hx of gout, elevated PSA, BPH , uses machine for bibpa History of Any Multi-Drug Resistant Organisms: None Reported Past Surgical History: Back Surgery, Coronary Bypass/CABG, Heart Catheterization, Joint Replacement, Orthopedic Surgery Additional Past Surgical History / Comment(s): 1996 CABG X3, bilateral carpal tunnel release, cervical fusion, Lumbar fusion L4-5-6, Pain Clinic Procedures. egd , colonoscopy, left shoulder replaced 2022, injections to right knee for arthritis Past Anesthesia/Blood Transfusion Reactions: No Reported Reaction Additional Past Anesthesia/Blood Transfusion Reaction / Comment(s): no blood transfusion reaction Past Psychological History: No Psychological Hx Reported Smoking Status: Former smoker Past Alcohol Use History: None Reported Past Drug Use History: None Reported - Past Family History Mother Family Medical History: Cancer Additional Family Medical History / Comment(s): liver and colon Medications and Allergies Home Medications Medication Instructions Recorded Confirmed Type Lisinopril-Hctz 20-25 mg 1 tab PO QAM 09/06/17 02/07/24 History [Zestoretic 20-25] allopurinoL [Zyloprim] 300 mg PO DAILY 09/06/17 02/07/24 History Nitroglycerin Sl Tabs [Nitrostat] 0.4 mg SUBLINGUAL Q5M PRN 10/02/17 02/07/24 History Atorvastatin [Lipitor] 20 mg PO DAILY 06/15/20 02/07/24 History Cyclobenzaprine [Flexeril] 5 mg PO BID PRN 06/15/20 02/07/24 History Montelukast [Singulair] 10 mg PO DAILY 06/15/20 02/07/24 History Cholecalciferol (Vitamin D3) 125 mcg PO DAILY 06/17/20 02/07/24 History [Vitamin D3] Vitamin B Complex/Folic Acid 1 tab PO DAILY 06/17/20 02/07/24 History [B-Complex Tablet] Repaglinide [Prandin] 1 mg PO W/BRKFST 11/25/20 02/07/24 History Finasteride [Proscar] 5 mg PO DAILY 07/05/21 02/07/24 History Repaglinide [Prandin] 2 mg PO W/SUPPER 02/07/22 02/07/24 History Famotidine [Pepcid] 40 mg PO BID 11/23/23 02/07/24 History Pioglitazone [Actos] 15 mg PO DAILY 11/23/23 02/07/24 History Aspirin 325 mg PO BID #60 tab 02/05/24 02/07/24 Rx HYDROcodone/APAP 7.5-325MG [[place] 1 - 2 tab PO Q6H PRN #32 tab 02/05/24 02/07/24 Rx 7.5-325] Sennosides [Senokot] 2 tab PO DAILY PRN #60 tablet 02/05/24 02/07/24 Rx metFORMIN HCL 500 mg PO BID 02/07/24 02/07/24 History Allergies Allergy/AdvReac Type Severity Reaction Status Date / Time almond Allergy Unknown Verified 02/07/24 08:58 black pepper Allergy Unknown Verified 02/07/24 08:58 coconut Allergy Unknown Verified 02/07/24 08:58 egg Allergy Unknown Verified 02/07/24 08:58 gluten Allergy Unknown Verified 02/07/24 08:58 milk Allergy Unknown Verified 02/07/24 08:58 oats Allergy Unknown Verified 02/07/24 08:58 peach Allergy Unknown Verified 02/07/24 08:58 pineapple Allergy Swelling Verified 02/07/24 08:58 tetanus and diphtheria Allergy Unknown Verified 02/07/24 08:58 toxoids tomato Allergy Unknown Verified 02/07/24 08:58 surgical adhesive tape AdvReac redness, Uncoded 02/05/24 06:04 raw, peeling of skin Surgical - Exam Vital Signs Temp Pulse Resp BP Pulse Ox 98.4 F 83 18 133/81 99 02/07/24 01:14 02/07/24 01:14 02/07/24 01:14 02/07/24 01:14 02/07/24 01:14 Results - Labs 02/07/24 01:35 02/07/24 01:35 Abnormal Lab Results - Last 24 Hours (Table) 02/07/24 02/07/24 Range/Units 01:35 01:35 WBC 11.5 H (3.8-10.6) k/uL RBC 3.89 L (4.30-5.90) m/uL Hgb 12.3 L (13.0-17.5) gm/dL Hct 37.8 L (39.0-53.0) % Neutrophils # 9.5 H (1.3-7.7) k/uL Sodium 135 L (137-145) mmol/L BUN 34 H (9-20) mg/dL Glucose 157 H (74-99) mg/dL Total Protein 6.0 L (6.3-8.2) g/dL Diabetes panel 02/07/24 Range/Units 01:35 Sodium 135 L (137-145) mmol/L Potassium 4.6 (3.5-5.1) mmol/L Chloride 105 (98-107) mmol/L Carbon Dioxide 23 (22-30) mmol/L BUN 34 H (9-20) mg/dL Creatinine 1.20 (0.66-1.25) mg/dL Glucose 157 H (74-99) mg/dL Calcium 8.9 (8.4-10.2) mg/dL AST 22 (17-59) U/L ALT 17 (4-49) U/L Alkaline Phosphatase 69 (38-126) U/L Total Protein 6.0 L (6.3-8.2) g/dL Albumin 3.7 (3.5-5.0) g/dL Calcium panel 02/07/24 Range/Units 01:35 Calcium 8.9 (8.4-10.2) mg/dL Albumin 3.7 (3.5-5.0) g/dL Pituitary panel 02/07/24 Range/Units 01:35 Sodium 135 L (137-145) mmol/L Potassium 4.6 (3.5-5.1) mmol/L Chloride 105 (98-107) mmol/L Carbon Dioxide 23 (22-30) mmol/L BUN 34 H (9-20) mg/dL Creatinine 1.20 (0.66-1.25) mg/dL Glucose 157 H (74-99) mg/dL Calcium 8.9 (8.4-10.2) mg/dL Adrenal panel 02/07/24 Range/Units 01:35 Sodium 135 L (137-145) mmol/L Potassium 4.6 (3.5-5.1) mmol/L Chloride 105 (98-107) mmol/L Carbon Dioxide 23 (22-30) mmol/L BUN 34 H (9-20) mg/dL Creatinine 1.20 (0.66-1.25) mg/dL Glucose 157 H (74-99) mg/dL Calcium 8.9 (8.4-10.2) mg/dL Total Bilirubin 0.4 (0.2-1.3) mg/dL AST 22 (17-59) U/L ALT 17 (4-49) U/L Alkaline Phosphatase 69 (38-126) U/L Total Protein 6.0 L (6.3-8.2) g/dL Albumin 3.7 (3.5-5.0) g/dL
[2024-02-07 16:50] LABS: Glucose,Whole Blood 137 mg/dL (70-110)
[2024-02-07 20:03] LABS: Glucose,Whole Blood 185 mg/dL (70-110)
[2024-02-07] MEDS: ASPIRIN 325 MG TAB PO SCH (21:30)
[2024-02-07] MEDS: MONTELUKAST 10 MG TAB PO SCH (21:31)
[2024-02-08 02:44] VITALS: BP 129/57; PULSE 70; TEMP 97.9
[2024-02-08 06:09] LABS: Glucose,Whole Blood 82 mg/dL (70-110)
[2024-02-08 08:58] LABS: Basophils % (A) 0 %; Eosinophils # (A) 0.1 k/uL (0-0.7); Eosinophils % (A) 1 %; HCT 34.6 % (39.0-53.0); HGB 10.8 gm/dL (13.0-17.5); Lymphocytes # (A) 1.1 k/uL (1.0-4.8); Lymphocytes % (A) 13 %; MCH 31.4 pg (25.0-35.0); MCHC 31.3 g/dL (31.0-37.0); MCV 100.6 fL (80.0-100.0); Macrocytosis Slight; Mean Platelet Volume 7.8; Monocytes # (A) 0.4 k/uL (0-1.0); Monocytes % (A) 5 %; Neutrophils # (A) 6.5 k/uL (1.3-7.7); Neutrophils % (A) 78 %; Platelet Count 241 k/uL (150-450); RBC 3.44 m/uL (4.30-5.90); RDW 13.6 % (11.5-15.5); WBC 8.3 k/uL (3.8-10.6)
[2024-02-08 09:16] LABS: ALT 14 U/L (4-49); AST 20 U/L (17-59); African American GFR (CKD) 83 (>60 ml/min/1.73 sqM); Albumin 3.1 g/dL (3.5-5.0); Alkaline Phosphatase 62 U/L (38-126); Anion Gap 5 mmol/L; Blood Urea Nitrogen 22 mg/dL (9-20); Calcium 8.7 mg/dL (8.4-10.2); Carbon Dioxide 25 mmol/L (22-30); Chloride 105 mmol/L (98-107); Glucose 241 mg/dL (74-99); Non-African American GFR(CKD) 72 (>60 ml/min/1.73 sqM); Potassium 4.2 mmol/L (3.5-5.1); Sodium 135 mmol/L (137-145); Total Bilirubin 0.4 mg/dL (0.2-1.3); Total Protein 5.4 g/dL (6.3-8.2)
[2024-02-08] MEDS: CHOLECALCIFEROL 125 MCG (5000 IU) TABLET PO SCH (10:02)
--- NOTE | 2024-02-08 10:12 | P.PN ---
Subjective Progress Note Date: 02/08/24 CHIEF COMPLAINT: Right inguinal hernia HISTORY OF PRESENT ILLNESS: Patient's right inguinal hernia is reduced. Pain has decreased. And is tolerable. He is having flatus. Denies any nausea or vomiting. Tolerating diet. Afebrile. WBC 8.3 PHYSICAL EXAM: VITAL SIGNS: Reviewed. GENERAL: Well-developed in no acute distress. ABDOMEN: Soft. Nondistended. Right inguinal hernia reduced NEUROLOGIC: Alert and oriented. Cranial nerves II through XII grossly intact. ASSESSMENT: 1. Right groin pain likely due to right inguinal hernia. Right inguinal hernia reduced 2. Prior history of bilateral inguinal hernia repair and umbilical hernia repair in 2018 PLAN: -No surgical intervention planned at this time -Recommend outpatient follow-up for right inguinal hernia repair Physician Contracting Officer note has been reviewed by physician. Signing provider agrees with the documented findings, assessment, and plan of care. Objective - Vital Signs Vital signs: Vital Signs Temp 97.9 F 02/08/24 02:00 Pulse 70 02/08/24 02:00 Resp 16 02/08/24 02:00 BP 129/57 02/08/24 02:00 Pulse Ox 96 02/08/24 02:00 FiO2 Intake & Output 02/07/24 02/08/24 02/08/24 18:59 06:59 18:59 Intake Total 240 Output Total 400 Balance 240 -400 Weight 95.254 kg Intake: Oral 240 Output: Urine 400 Other: Voiding Method Toilet # Voids 1 1 - Labs CBC & Chem 7: 02/08/24 08:14 02/08/24 08:14 Labs: Abnormal Lab Results - Last 24 Hours (Table) 02/07/24 02/07/24 02/08/24 Range/Units 16:49 20:02 08:14 RBC 3.44 L (4.30-5.90) m/uL Hgb 10.8 L (13.0-17.5) gm/dL Hct 34.6 L (39.0-53.0) % MCV 100.6 H (80.0-100.0) fL Sodium (137-145) mmol/L BUN (9-20) mg/dL Glucose (74-99) mg/dL POC Glucose (mg/dL) 137 H 185 H (70-110) mg/dL Total Protein (6.3-8.2) g/dL Albumin (3.5-5.0) g/dL 02/08/24 Range/Units 08:14 RBC (4.30-5.90) m/uL Hgb (13.0-17.5) gm/dL Hct (39.0-53.0) % MCV (80.0-100.0) fL Sodium 135 L (137-145) mmol/L BUN 22 H (9-20) mg/dL Glucose 241 H (74-99) mg/dL POC Glucose (mg/dL) (70-110) mg/dL Total Protein 5.4 L (6.3-8.2) g/dL Albumin 3.1 L (3.5-5.0) g/dL
[2024-02-08] MEDS: FOLIC ACID PO SCH (10:49)
[2024-02-08] MEDS: TAMSULOSIN 0.4 MG CAP.ER.24H PO SCH (10:49)
[2024-02-08] MEDS: VITAMIN B COMPLEX PO SCH (10:49)
--- NOTE | 2024-02-08 10:57 | P.PN ---
Subjective Progress Note Date: 02/08/24 - History of Present Illness 02/07/2024 This is a 78-year-old gentleman past medical history significant for CAD, CABG, diabetes mellitus, deafness, hypertension, hyperlipidemia, rheumatoid arthritis, sleep apnea, former nicotine dependence,BPH, Mnire's and multiple other medical issues discharged yesterday status post total right knee arthroplasty. Returned back to the ER yesterday with worsening right groin hernia pain. Apologetically, patient disclosed that he actually had been having right inguinal hernia groin pain prior to his scheduled knee surgery but did not want to delay his surgery. Reports worsened with "movement, riding or bouncing." Denies numbness or tingling. Denies lightheadedness dizziness or focal deficits. Denies chest pain, palpitations or shortness of breath. Afebrile, WBC 11.5, hemoglobin 12.3, platelets 13.8, bicarb 23, BUN 34, creatinine 1.2. Glucose 157. UA negative CT of abdomen pelvis reported gas and fluid noted along the right inguinal region incompletely visualized, associated adjacent stranding noted, super postinfection not excluded, radiopaque foreign body noted within the right inguinal region measuring 1.7 cm in length and 0.2 cm in diameter, incompletely visualized and new from prior study August 2017, may be postsurgical in nature, bilateral inguinal surgical clips which are new from prior study, prominent gallbladder, cholecystitis less likely. 02/08/2024 significant clinical improvement, right inguinal hernia currently reduced. Pain lessened. Ambulating, tolerating exertion well. Tolerating diet, denies nausea vomiting or diarrhea. Passing flatus. Afebrile, normal WBC. Renal function improved, BUN 22, creatinine decreased to 1.procalcitonin negative. PT pending. Denies chest pain, palpitations or shortness of breath. Maintaining O2 sats in the high 90s on room air. Objective - Vital Signs Vital signs: Vital Signs Temp 97.9 F 02/08/24 02:00 Pulse 70 02/08/24 02:00 Resp 16 02/08/24 02:00 BP 129/57 02/08/24 02:00 Pulse Ox 96 02/08/24 02:00 FiO2 Intake & Output 02/07/24 02/08/24 02/08/24 18:59 06:59 18:59 Intake Total 240 Output Total 400 Balance 240 -400 Weight 95.254 kg Intake: Oral 240 Output: Urine 400 Other: Voiding Method Toilet # Voids 1 1 - Exam PHYSICAL EXAM: VITAL SIGNS: [As above] GENERAL: Alert and oriented x 3, sitting up at side of bed, no acute distress HEENT: Atraumatic, normocephalic, Conjunctivae normal. eyes normal. MMM. NECK: Supple, No JVD. CARDIOVASCULAR: S1, S2 regular.No murmur RESPIRATION: Unlabored, equal air entry, Breath sounds clear with diminished bases. No rhonchi or crackles. No bronchial breathing. ABDOMEN: Soft, nondistended, nontender . No guarding. no masses palpable. No guarding, no rigidity .+Bowel sounds. Right groin decreased tenderness. LEGS: Right lower extremity dressing clean dry and intact, minimal edema, no calf tenderness, positive DP pulse NERVOUS SYSTEM: Cranial N 2-12 grossly normal. No focal deficits. Strength and sensation grossly intact. Skin: Warm and dry, no rash - Labs CBC & Chem 7: 02/08/24 08:14 02/08/24 08:14 Labs: Abnormal Lab Results - Last 24 Hours (Table) 02/07/24 02/07/24 02/08/24 Range/Units 16:49 20:02 08:14 RBC 3.44 L (4.30-5.90) m/uL Hgb 10.8 L (13.0-17.5) gm/dL Hct 34.6 L (39.0-53.0) % MCV 100.6 H (80.0-100.0) fL Sodium (137-145) mmol/L BUN (9-20) mg/dL Glucose (74-99) mg/dL POC Glucose (mg/dL) 137 H 185 H (70-110) mg/dL Total Protein (6.3-8.2) g/dL Albumin (3.5-5.0) g/dL 02/08/24 Range/Units 08:14 RBC (4.30-5.90) m/uL Hgb (13.0-17.5) gm/dL Hct (39.0-53.0) % MCV (80.0-100.0) fL Sodium 135 L (137-145) mmol/L BUN 22 H (9-20) mg/dL Glucose 241 H (74-99) mg/dL POC Glucose (mg/dL) (70-110) mg/dL Total Protein 5.4 L (6.3-8.2) g/dL Albumin 3.1 L (3.5-5.0) g/dL Assessment and Plan Assessment: Right lower abdominal pain, right inguinal hernia Osteoarthritis ,status post recent total right knee arthroplasty 02/05/2024 Diabetes mellitus, hemoglobin A1c 6.9 History of hypertension Hyperlipidemia Sleep apnea, wears CPAP Obesity, BMI 30 BPH Former nicotine dependence Plan: Continue on current medication regimen ,monitoring and symptomatic treatment. Right groin pain controlled with discharge planning as per general surgery. Medically cleared for discharge. Patient has been advised to continue on aspirin 325 twice daily for anticoagulation as prescribed by orthopedic surgery for his recent knee surgery. Complained of BPH issues, dribbling, Flomax added to med regimen with further recommendations in office at follow-up visit with PCP. Complained of right hip muscle pain , evaluated by PT, ambulating well, warm compress applied with significant clinical improvement. Follow-up with PCP in 1 week. The impression and plan of care has been dictated as directed. : I performed a history and examination of this patient, discussed the same with the dictator. I agree with the dictator's note ,documented as a scribe. Any additional findings or plans will be noted.
--- NOTE | 2024-02-08 11:38 | P.DS ---
Providers Date of admission: 02/07/24 07:38 Expected date of discharge: 02/08/24 Attending physician: Ryan Ulrich Consults: 02/07/24 07:38 Consult Physician Routine Consulting Provider: Ryan Ulrich Consult Reason/Comments: hernia pain, prior surgical repair 2018 Do you want consulting provider notified?: Yes 02/07/24 07:43 Consult Physician Routine Consulting Provider: Ash Araujo Consult Reason/Comments: recent arthroscopic knee procedure, pain Do you want consulting provider notified?: Yes Primary care physician: Carla Rodriguezbagh [facility] Course: Discharge diagnosis 1. Right groin pain likely due to right inguinal hernia. Hospital course This is a 78-year-old male who presented to the hospital complaints of right groin pain. Patient reports on Monday he was tilling a garden for his . He came back into the house and had a bulge in the right groin with severe pain. He applied warm compresses and then reduce the hernia himself. He then proceede d to have knee surgery on Monday. He then had right groin pain and hernia bulge on Monday and Monday. The hernia is now reduced. Pain is tolerable. Patient has been cleared by consulting physicians for discharge. Patient is stable for discharge with recommendations for outpatient follow-up for right inguinal hernia repair. Please refer to chart for any further details. Physician Bead Picker note has been reviewed by physician. Signing provider agrees with the documented findings, assessment, and plan of care. Patient Condition at Discharge: Stable Plan - Discharge Summary Discharge Rx Participant: Yes New Discharge Prescriptions: New polyethylene glycoL 3350 [Miralax] 17 gm PO DAILY packet Tamsulosin HCl [Flomax] 0.4 mg PO DAILY #30 capsule Continue Lisinopril-Hctz 20-25 mg [Zestoretic 20-25] 1 tab PO QAM allopurinoL [Zyloprim] 300 mg PO DAILY Nitroglycerin Sl Tabs [Nitrostat] 0.4 mg SUBLINGUAL Q5M PRN PRN Reason: Chest Pain Montelukast [Singulair] 10 mg PO DAILY Atorvastatin [Lipitor] 20 mg PO DAILY Cyclobenzaprine [Flexeril] 5 mg PO BID PRN PRN Reason: Muscle Pain Vitamin B Complex/Folic Acid [B-Complex Tablet] 1 tab PO DAILY Cholecalciferol (Vitamin D3) [Vitamin D3 (5000 Iu)] 125 mcg PO DAILY Repaglinide [Prandin] 1 mg PO W/BRKFST Repaglinide [Prandin] 2 mg PO W/SUPPER Famotidine [Pepcid] 40 mg PO BID Aspirin 325 mg PO BID #60 tab Finasteride [Proscar] 5 mg PO DAILY Pioglitazone [Actos] 15 mg PO DAILY HYDROcodone/APAP 7.5-325MG [[place] 7.5-325] 1 - 2 tab PO Q6H PRN #32 tab PRN Reason: Pain Sennosides [Senokot] 2 tab PO DAILY PRN #60 tablet PRN Reason: Constipation metFORMIN HCL 500 mg PO BID Discharge Medication List Lisinopril-Hctz 20-25 mg [Zestoretic 20-25] 1 tab PO QAM 09/06/17 [History] allopurinoL [Zyloprim] 300 mg PO DAILY 09/06/17 [History] Nitroglycerin Sl Tabs [Nitrostat] 0.4 mg SUBLINGUAL Q5M PRN 10/02/17 [History] Atorvastatin [Lipitor] 20 mg PO DAILY 06/15/20 [History] Cyclobenzaprine [Flexeril] 5 mg PO BID PRN 06/15/20 [History] Montelukast [Singulair] 10 mg PO DAILY 06/15/20 [History] Cholecalciferol (Vitamin D3) [Vitamin D3 (5000 Iu)] 125 mcg PO DAILY 06/17/20 [History] Vitamin B Complex/Folic Acid [B-Complex Tablet] 1 tab PO DAILY 06/17/20 [History] Repaglinide [Prandin] 1 mg PO W/BRKFST 11/25/20 [History] Finasteride [Proscar] 5 mg PO DAILY 07/05/21 [History] Repaglinide [Prandin] 2 mg PO W/SUPPER 02/07/22 [History] Famotidine [Pepcid] 40 mg PO BID 11/23/23 [History] Pioglitazone [Actos] 15 mg PO DAILY 11/23/23 [History] Aspirin 325 mg PO BID #60 tab 02/05/24 [Rx] HYDROcodone/APAP 7.5-325MG [[place] 7.5-325] 1 - 2 tab PO Q6H PRN #32 tab 02/05/24 [Rx] Sennosides [Senokot] 2 tab PO DAILY PRN #60 tablet 02/05/24 [Rx] metFORMIN HCL 500 mg PO BID 02/07/24 [History] Tamsulosin HCl [Flomax] 0.4 mg PO DAILY #30 capsule 02/08/24 [Rx] polyethylene glycoL 3350 [Miralax] 17 gm PO DAILY packet 02/08/24 [Rx] Follow up Appointment(s)/Referral(s): Carla Terrazas DO [Primary Care Provider] - 1-2 days (Patient to make appointment) Ryan Ulrich MD [STAFF PHYSICIAN] - 1 Week (Patient to make appt) Patient Instructions/Handouts: *Surgery [facility] - On-Q Pain Pump Discharge Instructions Activity/Diet/Wound Care/Special Instructions: Conitnue directions post surgery Weightbearing as tolerated with a walker. CPM 5-6h daily as tolerated. Leave dressing intact. Dressing may be removed by home care nurse or by patient in 7 days. Then change dressing twice daily until follow up. May shower with initial dressing intact and after removal. If dressing become saturated, please remove. Recommend use of compression stockings daily until follow up to help prevent swelling and blood clots. May remove at night before sleeping. Please take aspirin 325mg twice daily for 30 days to prevent blood clots. Please follow up with [facility] and call with any questions or concerns, . Discharge Disposition: HOME SELF-CARE
[2024-02-08 11:48] LABS: Glucose,Whole Blood 186 mg/dL (70-110)
[2024-02-09] MEDS ORDERED: PANTOPRAZOLE 40 MG TABLET PO SCH (07:30)
== END 2024-02-08 13:47 | disposition home or self-care (01) ==
LOC: EC 01:12 → 6NMEDSUR 07:38 → 1SOBS 10:03
PROVIDERS: ADMIT Surgery; ATTEND Surgery
DX: R10.31 Right lower quadrant pain (principal); K40.90 Unilateral inguinal hernia, without obstruction or gangrene, not specified as recurrent; I25.10 Atherosclerotic heart disease of native coronary artery without angina pectoris; E11.9 Type 2 diabetes mellitus without complications; E78.5 Hyperlipidemia, unspecified; I10 Essential (primary) hypertension; N40.0 Benign prostatic hyperplasia without lower urinary tract symptoms; G47.30 Sleep apnea, unspecified; Z87.891 Personal history of nicotine dependence; Z95.1 Presence of aortocoronary bypass graft; Z96.651 Presence of right artificial knee joint; Z79.82 Long term (current) use of aspirin; Z79.84 Long term (current) use of oral hypoglycemic drugs; Z79.899 Other long term (current) drug therapy
CPT/HCPCS: 36415; 74177; 76870; 80053; 81003; 83605; 84145; 85025; 93975; 96361; 96372; 96374; 96375; 96376; 99285

== ENCOUNTER → 2024-03-05 | Day surgery (SDC) | payer MEDICARE ==
[~2024-03-05] MED LIST changes: +DEXAMETHASONE SOD PHOSPHATE 4 MG/ML 1 ML VIAL ONE; +HYDROmorphone (PF) 1 MG/ML ONE; +KETOROLAC 15 MG/ML 1 ML VIAL ONE; +LIDOCAINE 1% INJ 10MG/ML (20 ML MDV) ONE; +MIDAZOLAM 2 MG/2 ML VIAL IV PRN; +PHENYLEPHRINE-0.9% NACL SYG 1,000 MCG/10 ML SYRINGE ONE; +PROPOFOL 10 MG/ML 20 ML VIAL IV ONE; +ROPIVACAINE 5 MG/ML 30 ML VIAL ONE; -TRANEXAMIC 1,000 MG/100ML-NACL 1,000 MG in SALINE 1 100ML.BAG IVPB PRN; +fentaNYL (PF) 50 MCG/ML 2 ML AMP ONE
[2024-03-05] MEDS: IV FLUID CONTINUATION 1,000 ML IV ONE ×2 (06:45→10:27)
[2024-03-05] MEDS: MIDAZOLAM 2 MG/2 ML VIAL IVP ONE (06:57)
[2024-03-05 07:12] LABS: Glucose,Whole Blood 122 mg/dL (70-110)
[2024-03-05] MEDS: ONDANSETRON 4 MG/2 ML VIAL IVP ONE (07:12)
[2024-03-05] MEDS: DEXAMETHASONE SOD PHOSPHATE 4 MG/ML 1 ML VIAL IV ONE (07:12)
[2024-03-05] MEDS: LACTATED RINGERS 1,000 ML IV SCH (07:13)
--- NOTE | 2024-03-05 07:13 | P.ANPRN ---
Procedure Note - Anesthesia - Nerve Block Performed Right Erector Spinae Single Time Out Performed: Yes Procedure Start Time: 06:56 Procedure Stop Time: 07:01 Location of Patient: PreOp Indication: Acute Post-Operative Pain, Analgesia, Requested by Surgeon Sedation Type: Sedate with meaningful contact maintained Preparation: Sterile Prep Position: Prone Catheter: None Needle Types: Pajunk Needle Gauge: 21 Ultrasound used to visualize needle placement: Yes Ultrasound used to observe medication spread: Yes Injectate: 0.5% Ropivacaine (see comment for volume) (Ropiv 20ml+decadron 4mg,) Blood Aspirated: No Pain Paresthesia on Injection Noted: No Resistance on Injection: Normal Image Stored and Saved: Yes Events: Uneventful and Well Tolerated
[2024-03-05] MEDS: HEPARIN SODIUM,PORCINE 5,000 UNIT/ML 1 ML VIAL SQ STA (07:32)
[2024-03-05] MEDS: BUPIVACAINE (PF) 0.25% 30 ML VIAL SQ ONE (08:22)
[2024-03-05 08:37] VITALS: RESP 16; TEMP 97.3
[2024-03-05] MEDS: HYDROmorphone 0.5 MG/0.5 ML SYRINGE IVP PRN (08:42)
--- NOTE | 2024-03-05 08:53 | P.OP ---
Date of Procedure: 03/05/24 Preoperative Diagnosis: recurrent right inguinal hernia Postoperative Diagnosis: recurrent right inguinal hernia Procedure(s) Performed: open repair of recurrent right internal hernia Excision of cord lipoma Anesthesia: VANGIE Surgeon: Ryan Ulrich Estimated Blood Loss (ml): 5 Pathology: other (cord lipoma) Condition: stable Disposition: PACU Description of Procedure: the patient's placed on the operative table in the supine position. He received general anesthesia. His right groin was prepped and draped usual sterile fashion. The skin was incisedover the right inguinal hernia. Using blunt and sharp dissection with cautery the subcutaneous tissue divided. And then the fascia external oblique was exposed. Fascia was then opened with pair Metzenbaum scissors. Care was taken to identify and preserve the ilioinguinal nerve. a rubber Jessica drain was placed from the cord. The hernia sac was dissected free from the cord structures.the hernia sac then underwent a high ligation. The hernia sac was ligated with 0 Vicryl suture. A cord lipoma was dissected free and sent to pathology as well. The hernia was then repairedusing a large Prolene hernia mesh plug. The inferior leaf expanded and the prepared space. The superior leaf was attached to the pubic tubercle medially. The lateral leaflet was incised and wrapped and the cord structures secured with 2-0 Prolene suture. Keturah's fascia closed with 2-0 Vicryl suture. Skin was closed 3-0 Monocryl.
[2024-03-05 10:45] VITALS: BP 130/63; PULSE 81
== END | disposition home or self-care (01) ==
LOC: OR 05:43
PROVIDERS: ATTEND Surgery
DX: K40.91 Unilateral inguinal hernia, without obstruction or gangrene, recurrent (principal); D17.6 Benign lipomatous neoplasm of spermatic cord; G89.18 Other acute postprocedural pain; I25.10 Atherosclerotic heart disease of native coronary artery without angina pectoris; G47.33 Obstructive sleep apnea (adult) (pediatric); Z95.1 Presence of aortocoronary bypass graft; K21.9 Gastro-esophageal reflux disease without esophagitis; E11.69 Type 2 diabetes mellitus with other specified complication; E78.5 Hyperlipidemia, unspecified; M06.9 Rheumatoid arthritis, unspecified; Z87.891 Personal history of nicotine dependence; Z88.7 Allergy status to serum and vaccine; Z91.012 Allergy to eggs; Z91.011 Allergy to milk products; Z91.018 Allergy to other foods; Z91.010 Allergy to peanuts; Z91.09 Other allergy status, other than to drugs and biological substances; Z79.899 Other long term (current) drug therapy; Z79.84 Long term (current) use of oral hypoglycemic drugs; Z79.82 Long term (current) use of aspirin
CPT/HCPCS: 64999; 88302; 49520; C1781; J2250; J1644; J1100; J0690; J2405; J2001; J3010; J1170 ×2; J2795; J1885; J2704; J2371; J0665

== ENCOUNTER → 2024-03-21 | Outpatient (CLI) | payer MEDICARE ==
[2024-03-21 12:58] VITALS: BP 145/67; PULSE 72; RESP 16; TEMP 97.1
--- NOTE | 2024-03-21 14:52 | P.PAINPG ---
PQRS Measure Charge Sheet Comment: A 78 yr old male with a history of severe and chronic LBP > 1 yr secondary to DDD, spondylosis and facet arthropathy without myelopathy presents today for evaluation. Pain level is 9 /10 in intensity, constant, predominantly axial, achy in character, localized in the lumbar spine w occasional radiation of pain toward the buttocks and LEs. Pain is provoked by lifting or overhead reaching. Pain is alleviated with medications, heat, ice, physician guided home stretching regimen every morning since Aug 2022, use of a cane for ambulatory assistance, repositioning and rest. Oswestry axial pain score of 37. Interventional pain procedures completed include BL RFA C4-C6 (2021), GRACIE C6- C7/ C7-T1, BL RFA L3-L5, R Reverse Total Arthroplasty (2022), R Knee Arthroplasty (2022) Patient is currently on Advil Patient denies any side effects of the medication(s), denies excessive drowsiness or sleepiness, denies suicidal ideation and reports that the current pain medication is helping to control the pain and improve activities of daily living. Patient denies any motor or sensory deficits. Patient denies any fever or night sweats, denies any change in the bowel movements or urination. Physical Examination: -Constitutional: Cooperative. Not in acute distress . - Neurologic: Cranial nerve II to XII intact. No focal neurological deficits. - Psychatric: Alert & oriented x 3. Matching mood & appropriate affect. Judgment and insight intact. - Musculoskeletal: Cervical spine: Muscle bulk/ tone/ strength in the bilateral upper extremities normal Vertebral body tenderness to palpation over Spurling test positive Distraction test positive Facet loading test positive Thoracic spine Muscle bulk / tone/ strength in the bilateral paraspinal muscles normal Vertebral body tender to palpation over Facet loading test positive Lumbar spine: Motor bulk/ tone/ strength lower extremities , thigh and legs : 5/5 Deep tendon reflexes : Normal Knee Jerk. Normal Ankle Jerk . Vertebral body tenderness to palpation over L5 Lumbar Facet Loading Test positive Straight Leg Raise: positive at 30 degrees right side/ left side Gaenslen's Test positive Sacral spine : Severe tenderness over the Sacroiliac joint: right side / left side Range of motion: Flexion of the lumbar spine <60 degrees Range of motion: Extension of the lumbar spine <20 degrees Gaenslen's Test positive Davion's Test positive Chuck test: positive right side / left side Thigh Thrust Test Sacral Thrust Test Assessment and plan: Chronic LBP secondary to DDD, spondylosis and facet arthropathy without myelopathy Recommendation of lumbar x ray M51.36 May need additional testing if indicated. All patient questions answered . MAPS reviewed and it was appropriate. I have spent less than 30 minutes on patient care today. Dr Mathias was available by phone for the evaluation of this patient. The time was used to review the medical records including relevant urine studies and Prescription history (MAPs), review of the available imaging, evaluation and examination of the patient, coordination of care with the medical staff and if applicable r eferring physicians, as well as creation of the medical record PQRS Narrative: Smoking Status Former smoker Hx Alcohol Use (MH) No Home Medications: Ambulatory Orders Lisinopril-Hctz 20-25 mg [Zestoretic 20-25] 1 tab PO QAM 09/06/17 allopurinoL [Zyloprim] 300 mg PO DAILY 09/06/17 Nitroglycerin Sl Tabs [Nitrostat] 0.4 mg SUBLINGUAL Q5M PRN 10/02/17 Atorvastatin [Lipitor] 20 mg PO DAILY 06/15/20 Cyclobenzaprine [Flexeril] 5 mg PO BID PRN 06/15/20 Montelukast [Singulair] 10 mg PO DAILY 06/15/20 Cholecalciferol (Vitamin D3) [Vitamin D3 (5000 Iu)] 125 mcg PO DAILY 06/17/20 Vitamin B Complex/Folic Acid [B-Complex Tablet] 1 tab PO DAILY 06/17/20 Repaglinide [Prandin] 1 mg PO W/BRKFST 11/25/20 Finasteride [Proscar] 5 mg PO DAILY 07/05/21 Repaglinide [Prandin] 2 mg PO W/SUPPER 02/07/22 Famotidine [Pepcid] 40 mg PO BID 11/23/23 Pioglitazone [Actos] 15 mg PO DAILY 11/23/23 Aspirin 325 mg PO BID #60 tab 02/05/24 HYDROcodone/APAP 7.5-325MG [[place] 7.5-325] 1 - 2 tab PO Q6H PRN #32 tab 02/05/24 Sennosides [Senokot] 2 tab PO DAILY PRN #60 tablet 02/05/24 metFORMIN HCL 500 mg PO BID 02/07/24 Tamsulosin HCl [Flomax] 0.4 mg PO DAILY #30 capsule 02/08/24 polyethylene glycoL 3350 [Miralax] 17 gm PO DAILY packet 02/08/24 Acetaminophen Tab [Tylenol] 650 mg PO Q6H #30 tab 03/05/24 Docusate [Colace] 100 mg PO BID #20 capsule 03/05/24 Ibuprofen [Motrin] 600 mg PO Q6HR PRN #40 tab 03/05/24 oxyCODONE HCL [OxyIR] 5 mg PO Q6H PRN 3 Days #10 tab 03/05/24 Controlled Substance Measures - Controlled Substance Measures Is patient prescribed a controlled substance at discharge?: No
== END ==
LOC: PNWHC3 10:20
PROVIDERS: ATTEND Specialist
DX: M51.36 Other intervertebral disc degeneration, lumbar region (principal); M47.816 Spondylosis without myelopathy or radiculopathy, lumbar region; Z87.891 Personal history of nicotine dependence; Z91.018 Allergy to other foods; Z91.011 Allergy to milk products; Z91.012 Allergy to eggs; Z91.048 Other nonmedicinal substance allergy status; Z88.7 Allergy status to serum and vaccine
CPT/HCPCS: 99211

== ENCOUNTER → 2024-03-21 | Outpatient (CLI) | payer MEDICARE ==
--- NOTE | 2024-03-21 12:31 | XR ---
EXAMINATION TYPE: XR lumbar spine 2 or 3V DATE OF EXAM: 03/21/2024 11:25 AM CLINICAL INDICATION:Male, 78 years old with history of M51.36 OTHER INTERVERTEBRAL DISC DEGENERATION, LUM; PHH COMPARISON: None TECHNIQUE: XR lumbar spine 2 or 3V - Frontal, lateral and coned in L5-S1 lateral views of the spine. FINDINGS: No evidence of any acute osseous pathology. No evidence of loss of vertebral body height i s seen. There is grade 2 anterolisthesis of L4 and L5. Alignment of the lumbar vertebral bodies. Scat tered disc space narrowing. Multilevel marginal osteophyte formation throughout the visualized spine. There is facet joint arthropathy throughout the spine. Scattered at least mild neural foraminal sten osis. Atherosclerosis of the arterial vasculature. IMPRESSION: 1. No acute fracture. 2. Moderate multilevel disc degeneration. 3. grade 2 anterolisthesis of L4 and L5
== END | disposition home or self-care (01) ==
LOC: RADXRMAIN 11:06
PROVIDERS: ATTEND Physician Assistant Medical
DX: M51.36 Other intervertebral disc degeneration, lumbar region (principal); M43.16 Spondylolisthesis, lumbar region
CPT/HCPCS: 72100

== ENCOUNTER → 2024-03-25 | Outpatient (CLI) | payer MEDICARE ==
--- NOTE | 2024-03-25 14:12 | MR ---
EXAMINATION TYPE: MR lumbar spine wo con DATE OF EXAM: 03/25/2024 COMPARISON: Radiograph 03/21/2024 HISTORY: 78-year-old male M54.36, Low back pain into rt leg TECHNIQUE: Multiplanar, multisequence images of the lumbar spine were acquired without IV contrast. FINDINGS: Mild multilevel degenerative disc disease with desiccated and mild bulging discs. 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 Some mild edematous Modic type I endplate change anteriorly at this level and also anter iorly at T12-L1. No suspicious bone marrow replacement. Advanced hypertrophic facet arthropathy mid to lower lumbar spine. Grade 2 anterolisthesis L4-L5 with the appearance of possible bilateral L4 pars defects on both sides. At L4-L5, changes result in focal moderate to severe spinal canal stenosis with moderate bilateral ne uroforaminal stenosis, possible impingement of the exiting left L4 nerve root. Variable mild narrowing of the spinal canal at other levels. On the right, there is mild neuroforaminal stenosis at L5-S1 with an adjacent right intraforaminal an nular fissure, sagittal image 13. Minimal inferior foraminal narrowing L3-L4. On the left, mild neuroforaminal stenosis at L5-S1. Conus medullaris is normal. Vertebral body heights are preserved. No prevertebral or paravertebral soft tissue abnormality seen. IMPRESSION: 1. Advanced hypertrophic facet arthropathy mid to lower lumbar spine along with bilateral L4 pars def ects. There is a grade 2 anterolisthesis here at L4-L5 with moderate degenerative disc disease and po sterior annular fissure. 2. Changes result in a moderate to severe focal spinal canal stenosis along with moderate bilateral n euroforaminal stenoses here at L4-L5. Possible impingement of the exiting left L4 nerve root here. 3. Mild degenerative disc disease elsewhere in the lumbar spine. No large focal disc herniation or si gnificant spinal canal stenosis elsewhere in the lumbar spine. 4. On the right, there is mild neuroforaminal narrowing at L5-S1 with an intraforaminal annular fissu re noted.
== END | disposition home or self-care (01) ==
LOC: RADMRIMAIN 12:55
PROVIDERS: ATTEND Specialist
DX: M51.36 Other intervertebral disc degeneration, lumbar region (principal); M47.816 Spondylosis without myelopathy or radiculopathy, lumbar region; M99.73 Connective tissue and disc stenosis of intervertebral foramina of lumbar region
CPT/HCPCS: 72148

== ENCOUNTER → 2024-04-29 | Outpatient (CLI) | payer MEDICARE | LOC: PNWHC3 10:20 | PROVIDERS: ATTEND Specialist | DX: M47.816 Spondylosis without myelopathy or radiculopathy, lumbar region | CPT/HCPCS: 99211 ==

== ENCOUNTER 2024-05-10 11:22 | Day surgery (SDC) | payer MEDICARE ==
[2024-05-10] MEDS ORDERED: IOPAMIDOL M200 10 ML VIAL ONE (13:13)
[2024-05-10] MEDS ORDERED: methylPREDNISolone ACETATE 40 MG/ML 1 ML VIAL ONE (13:13)
--- NOTE | 2024-06-25 18:21 | FL ---
EXAMINATION TYPE: FL guided pain mgmt statistic DATE OF EXAM: 05/28/2024 5:01 PM COMPARISON: Pre Operative Images if available both CT/MRI or plain film CLINICAL INDICATION: Male, 78 years old with history of LESI; TECHNIQUE: FL guided pain mgmt statistic, multiple fluoroscopic images provided for procedure. Total fluoroscopy time: 4.2 seconds Total submitted images to PACS: 1 DAP: [id number] mGym2 Gycm2 uGym2 cGycm2 or equivalent. FINDINGS: Fluoroscopic images during injection for pain management demonstrate multilevel degeneration changes throughout the spine. No evidence for fracture. No acute process identified. IMPRESSION: 1. No evidence for intraoperative complication. 2. Please see the operative/procedural note for further details. [facility], , 06/25/2024 6:18 PM
== END 2024-05-10 13:50 ==
LOC: ORPAIN 11:22
PROVIDERS: ATTEND Specialist
DX: M51.16 Intervertebral disc disorders with radiculopathy, lumbar region (principal); E11.9 Type 2 diabetes mellitus without complications; Z79.82 Long term (current) use of aspirin; Z88.7 Allergy status to serum and vaccine; Z88.8 Allergy status to other drugs, medicaments and biological substances
CPT/HCPCS: 62323

== ENCOUNTER → 2024-05-30 | Outpatient (CLI) | payer MEDICARE ==
[2024-05-30 12:07] VITALS: BP 116/60; PULSE 65; RESP 16
--- NOTE | 2024-05-30 14:13 | P.PAINPG ---
PQRS Measure Charge Sheet Comment: A 78 yr old male with a history of severe and chronic LBP > 1 yr secondary to DDD, spondylosis and facet arthropathy without myelopathy presents today for evaluation s/p ROBINA L4-L5 #1. Pt states he experienced 100 % pain relief x 3 wks s/p procedure. Pain level is 9 /10 in intensity, intermittent, predominantly axial, achy in character, localized in the lumbar spine w occasional radiation of pain toward the buttocks and LLE. Pain is provoked by lifting or overhead reaching. Pain is alleviated with medications, heat, ice, physician guided home stretching regimen every morning since Aug 2022, use of a cane for ambulatory assistance, repositioning and rest. Interventional pain procedures completed include BL RFA C4-C6 (2021), GRACIE C6- C7/ C7-T1, BL RFA L3-L5, R Reverse Total Arthroplasty (2022), R Knee Arthroplasty (2022), ROBINA L4-L5 x1 (Apr 2024) Patient is currently on Advil Patient denies any side effects of the medication(s), denies excessive drowsiness or sleepiness, denies suicidal ideation and reports that the current pain medication is helping to control the pain and improve activities of daily living. Patient denies any motor or sensory deficits. Patient denies any fever or night sweats, denies any change in the bowel movements or urination. Physical Examination: -Constitutional: Cooperative. Not in acute distress . - Neurologic: Cranial nerve II to XII intact. No focal neurological deficits. - Psychatric: Alert & oriented x 3. Matching mood & appropriate affect. Judgment and insight intact. - Musculoskeletal: Cervical spine: Muscle bulk/ tone/ strength in the bilateral upper extremities normal Vertebral body tenderness to palpation over Spurling test positive Distraction test positive Facet loading test positive Thoracic spine Muscle bulk / tone/ strength in the bilateral paraspinal muscles normal Vertebral body tender to palpation over Facet loading test positive Lumbar spine: Motor bulk/ tone/ strength lower extremities , thigh and legs : 5/5 Deep tendon reflexes : Normal Knee Jerk. Normal Ankle Jerk . Vertebral body tenderness to palpation over L5 Plata test positive L L4-L5 Lumbar Facet Loading Test positive Straight Leg Raise: positive at 30 degrees right side/ left side Gaenslen's Test positive Sacral spine : Severe tenderness over the Sacroiliac joint: right side / left side Range of motion: Flexion of the lumbar spine <60 degrees Range of motion: Extension of the lumbar spine <20 degrees Gaenslen's Test positive Davion's Test positive Chuck test: positive right side / left side Thigh Thrust Test Sacral Thrust Test Imaging : MRI non contrast lumbar spine from 03/25/24 reviewed (negative for post operative changes) Assessment and plan: Chronic LBP secondary to L4-L5 post laminectomy syndrome (imaging negative for post operative changes) Will follow up w his PCP and orthopedic su[facility] to explore additional treatment options. All patient questions answered . I have spent less than 30 minutes on patient care today. Dr Mathias was available by phone for the evaluation of this patient. The time was used to review the medical records including relevant urine studies and Prescription history (MAPs), review of the available imaging, evaluation and examination of the patient, coordination of care with the medical staff and if applicable referring physicians, as well as creation of the medical record PQRS Narrative: Smoking Status Former smoker Hx Alcohol Use (MH) No Home Medications: Ambulatory Orders Lisinopril-Hctz 20-25 mg [Zestoretic 20-25] 1 tab PO QAM 09/06/17 allopurinoL [Zyloprim] 300 mg PO DAILY 09/06/17 Nitroglycerin Sl Tabs [Nitrostat] 0.4 mg SUBLINGUAL Q5M PRN 10/02/17 Atorvastatin [Lipitor] 20 mg PO DAILY 06/15/20 Cyclobenzaprine [Flexeril] 5 mg PO BID PRN 06/15/20 Montelukast [Singulair] 10 mg PO DAILY 06/15/20 Cholecalciferol (Vitamin D3) [Vitamin D3 (5000 Iu)] 125 mcg PO DAILY 06/17/20 Vitamin B Complex/Folic Acid [B-Complex Tablet] 1 tab PO DAILY 06/17/20 Repaglinide [Prandin] 1 mg PO W/BRKFST 11/25/20 Finasteride [Proscar] 5 mg PO DAILY 07/05/21 Repaglinide [Prandin] 2 mg PO W/SUPPER 02/07/22 Famotidine [Pepcid] 40 mg PO BID 11/23/23 Pioglitazone [Actos] 15 mg PO DAILY 11/23/23 Aspirin 325 mg PO BID #60 tab 02/05/24 HYDROcodone/APAP 7.5-325MG [[place] 7.5-325] 1 - 2 tab PO Q6H PRN #32 tab 02/05/24 Sennosides [Senokot] 2 tab PO DAILY PRN #60 tablet 02/05/24 metFORMIN HCL 500 mg PO BID 02/07/24 Tamsulosin HCl [Flomax] 0.4 mg PO DAILY #30 capsule 02/08/24 polyethylene glycoL 3350 [Miralax] 17 gm PO DAILY packet 02/08/24 Acetaminophen Tab [Tylenol] 650 mg PO Q6H #30 tab 03/05/24 Docusate [Colace] 100 mg PO BID #20 capsule 03/05/24 Ibuprofen [Motrin] 600 mg PO Q6HR PRN #40 tab 03/05/24 oxyCODONE HCL [OxyIR] 5 mg PO Q6H PRN 3 Days #10 tab 03/05/24 Controlled Substance Measures - Controlled Substance Measures Is patient prescribed a controlled substance at discharge?: No
== END ==
LOC: PNWHC3 10:44
PROVIDERS: ATTEND Specialist
DX: M54.16 Radiculopathy, lumbar region
CPT/HCPCS: 99211

== ENCOUNTER → 2024-10-28 | Outpatient (CLI) | payer MEDICARE ==
[2024-10-28 14:19] VITALS: BP 135/64; PULSE 63
--- NOTE | 2024-10-28 16:21 | P.PAINPG ---
PQRS Measure Charge Sheet Comment: A 78 yr old male with a history of severe and chronic LBP > 1 yr secondary to L4-L5 post laminectomy syndrome presents today for evaluation. Pain level is 9- 10 /10 in intensity, intermittent, predominantly axial, achy in character, localized in the lumbar spine w occasional radiation of pain toward the buttocks and LLE. Pain is provoked by lifting or overhead reaching. Pain is alleviated with medications, heat, ice, physician guided home stretching regimen every morning since Aug 2022, use of a cane for ambulatory assistance, repositioning and rest. Interventional pain procedures completed include BL RFA C4-C6 (2021), GRACIE C6- C7/ C7-T1, BL RFA L3-L5, R Reverse Total Arthroplasty (2022), R Knee Ar throplasty (2022), ROBINA L4-L5 x1 (Apr 2024) Patient is currently on Advil Patient denies any side effects of the medication(s), denies excessive drowsiness or sleepiness, denies suicidal ideation and reports that the current pain medication is helping to control the pain and improve activities of daily living. Patient denies any motor or sensory deficits. Patient denies any fever or night sweats, denies any change in the bowel movements or urination. Physical Examination: -Constitutional: Cooperative. Not in acute distress . - Neurologic: Cranial nerve II to XII intact. No focal neurological de ficits. - Psychatric: Alert & oriented x 3. Matching mood & appropriate affect. Judgment and insight intact. - Musculoskeletal: Cervical spine: Muscle bulk/ tone/ strength in the bilateral upper extremities normal Vertebral body tenderness to palpation over Spurling test positive Distraction test positive Facet loading test positive Thoracic spine Muscle bulk / tone/ strength in the bilateral paraspinal muscles normal Vertebral body tender to palpation over Facet loading test positive Lumbar spine: Motor bulk/ tone/ strength lower extremities , thigh and legs : 5/5 Deep tendon reflexes : Normal Knee Jerk. Normal Ankle Jerk . Vertebral body tenderness to palpation over L5 Plata test positive L L4-L5 Lumbar Facet Loading Test positive Straight Leg Raise: positive at < 30 degrees right side/ left side Gaenslen's Test positive Sacral spine : Severe tenderness over the Sacroiliac joint: right side / left side Range of motion: Flexion of the lumbar spine <60 degrees Range of motion: Extension of the lumbar spine <20 degrees Gaenslen's Test positive Davion's Test positive Chuck test: positive right side / left side Thigh Thrust Test Sacral Thrust Test Imaging : MRI non contrast lumbar spine from 03/25/24 reviewed (negative for post operative changes) Assessment and plan: Chronic LBP secondary to L4-L5 post laminectomy syndrome (imaging negative for post operative changes) Recommendation of ROBINA L5-S1 #2. Risks, benefits of procedure discussed and pt verbalized understanding. Protocol for discontinuation/ continuation of medications dorian procedure discussed. All patient questions answered . I have spent less than 30 minutes on patient care today. Dr Mathias was available by phone for the evaluation of this patient. The time was used to review the medical records including relevant urine studies and Prescription history (MAPs), review of the available imaging, evaluation and examination of the patient, coordination of care with the medical staff and if applicable referring physicians, as well as creation of the medical record PQRS Narrative: Smoking Status Former smoker Hx Alcohol Use (MH) No Home Medications: Ambulatory Orders Lisinopril-Hctz 20-25 mg [Zestoretic 20-25] 1 tab PO QAM 09/06/17 allopurinoL [Zyloprim] 300 mg PO DAILY 09/06/17 Nitroglycerin Sl Tabs [Nitrostat] 0.4 mg SUBLINGUAL Q5M PRN 10/02/17 Atorvastatin [Lipitor] 20 mg PO DAILY 06/15/20 Cyclobenzaprine [Flexeril] 5 mg PO BID PRN 06/15/20 Montelukast [Singulair] 10 mg PO DAILY 06/15/20 Cholecalciferol (Vitamin D3) [Vitamin D3 (5000 Iu)] 125 mcg PO DAILY 06/17/20 Vitamin B Complex/Folic Acid [B-Complex Tablet] 1 tab PO DAILY 06/17/20 Repaglinide [Prandin] 1 mg PO W/BRKFST 11/25/20 Finasteride [Proscar] 5 mg PO DAILY 07/05/21 Repaglinide [Prandin] 2 mg PO W/SUPPER 02/07/22 Famotidine [Pepcid] 40 mg PO BID 11/23/23 Pioglitazone [Actos] 15 mg PO DAILY 11/23/23 Aspirin 325 mg PO BID #60 tab 02/05/24 HYDROcodone/APAP 7.5-325MG [[place] 7.5-325] 1 - 2 tab PO Q6H PRN #32 tab 02/05/24 Sennosides [Senokot] 2 tab PO DAILY PRN #60 tablet 02/05/24 metFORMIN HCL 500 mg PO BID 02/07/24 Tamsulosin HCl [Flomax] 0.4 mg PO DAILY #30 capsule 02/08/24 polyethylene glycoL 3350 [Miralax] 17 gm PO DAILY packet 02/08/24 Acetaminophen Tab [Tylenol] 650 mg PO Q6H #30 tab 03/05/24 Docusate [Colace] 100 mg PO BID #20 capsule 03/05/24 Ibuprofen [Motrin] 600 mg PO Q6HR PRN #40 tab 03/05/24 oxyCODONE HCL [OxyIR] 5 mg PO Q6H PRN 3 Days #10 tab 03/05/24 Controlled Substance Measures - Controlled Substance Measures Is patient prescribed a controlled substance at discharge?: No
== END ==
LOC: PNWHC3 13:49
PROVIDERS: ATTEND Specialist
DX: M96.1 Postlaminectomy syndrome, not elsewhere classified (principal); G89.29 Other chronic pain; M54.50 Low back pain, unspecified; Z87.891 Personal history of nicotine dependence; Z91.018 Allergy to other foods; Z91.012 Allergy to eggs; Z91.011 Allergy to milk products; Z91.09 Other allergy status, other than to drugs and biological substances
CPT/HCPCS: 99212

== ENCOUNTER → 2024-11-21 | Outpatient (CLI) | payer MEDICARE ==
[2024-11-21 10:27] VITALS: BP 128/75; PULSE 90; RESP 16; TEMP 97.4
--- NOTE | 2024-11-21 14:55 | P.PAINPG ---
PQRS Measure Charge Sheet Comment: A 78 yr old male with a history of severe and chronic LBP > 1 yr secondary to L4-L5 post laminectomy syndrome presents today for evaluation s/p ROBINA L5-S1 #2. Pt states he experienced 75 % pain relief x 2 wks s/p procedure. Pain level is 9 /10 in intensity, intermittent, predominantly axial, achy in character, localized in the lower lumbar spine w occasional radiation of pain toward the buttocks and LLE. Pain is provoked by lifting or overhead reaching. Pain is alleviated with medications, topical, heat, ice, physician guided home stretching regimen every morning since Aug 2022, use of a cane for ambulatory assistance, repositioning and rest. Interventional pain procedures completed include BL RFA C4-C6 (2021), GRACIE C6- C7/ C7-T1, BL RFA L3-L5, R Reverse Total Arthroplasty (2022), R Knee Arthroplasty (2022), ROBINA L4-L5 x2 (05/18, 11/19) Patient is currently on ASA, Ibu, Advil, CBD Oil Patient denies any side effects of the medication(s), denies excessive drowsiness or sleepiness, denies suicidal ideation and reports that the current pain medication is helping to control the pain and improve activities of daily living. Patient denies any motor or sensory deficits. Patient denies any fever or night sweats, denies any change in the bowel movements or urination. Physical Examination: -Constitutional: Cooperative. Not in acute distress . - Neurologic: Cranial nerve II to XII intact. No focal neurological deficits. - Psychatric: Alert & oriented x 3. Matching mood & appropriate affect. Judg ment and insight intact. - Musculoskeletal: Cervical spine: Muscle bulk/ tone/ strength in the bilateral upper extremities normal Vertebral body tenderness to palpation over Spurling test positive Distraction test positive Facet loading test positive Thoracic spine Muscle bulk / tone/ strength in the bilateral paraspinal muscles normal Vertebral body tender to palpation over Facet loading test positive Lumbar spine: Motor bulk/ tone/ strength lower extremities , thigh and legs : 5/5 Deep tendon reflexes : Normal Knee Jerk. Normal Ankle Jerk . Vertebral body tenderness to palpation over L5 Plata test positive L L4-L5 Lumbar Facet Loading Test positive Straight Leg Raise: positive at < 30 degrees right side/ left side Gaenslen's Test positive Sacral spine : Severe tenderness over the Sacroiliac joint: right side / left side Range of motion: Flexion of the lumbar spine <60 degrees Range of motion: Extension of the lumbar spine <20 degrees Gaenslen's Test positive Davion's Test positive Chuck test: positive right side / left side Thigh Thrust Test Sacral Thrust Test Imaging : MRI non contrast lumbar spine from 03/25/24 reviewed (negative for post operative changes) Assessment and plan: Chronic LBP secondary to L4-L5 post laminectomy syndrome (imaging negative for post operative changes) Recommendation of ROBINA L5-S1 #3. Risks, benefits of procedure discussed and pt verbalized understanding. Protocol for discontinuation/ continuation of medications dorian procedure discussed. All patient questions answered . I have spent less than 30 minutes on patient care today. Dr Mathias was available by phone for the evaluation of this patient. The time was used to review the medical records including relevant urine studies and Prescription history (MAPs), review of the available imaging, evaluation and examination of the patient, coordination of care with the medical staff and if applicable referring physicians, as well as creation of the medical record PQRS Narrative: Smoking Status Former smoker Hx Alcohol Use (MH) No Home Medications: Ambulatory Orders Lisinopril-Hctz 20-25 mg [Zestoretic 20-25] 1 tab PO QAM 09/06/17 allopurinoL [Zyloprim] 300 mg PO DAILY 09/06/17 Nitroglycerin Sl Tabs [Nitrostat] 0.4 mg SUBLINGUAL Q5M PRN 10/02/17 Atorvastatin [Lipitor] 20 mg PO DAILY 06/15/20 Cyclobenzaprine [Flexeril] 5 mg PO BID PRN 06/15/20 Montelukast [Singulair] 10 mg PO DAILY 06/15/20 Cholecalciferol (Vitamin D3) [Vitamin D3 (5000 Iu)] 125 mcg PO DAILY 06/17/20 Vitamin B Complex/Folic Acid [B-Complex Tablet] 1 tab PO DAILY 06/17/20 Repaglinide [Prandin] 1 mg PO BID 11/25/20 Finasteride [Proscar] 5 mg PO DAILY 07/05/21 Pioglitazone [Actos] 15 mg PO DAILY 11/23/23 metFORMIN HCL 500 mg PO BID 02/07/24 Tamsulosin HCl [Flomax] 0.4 mg PO DAILY #30 capsule 02/08/24 Aspirin [Adult Low Dose Aspirin EC] 81 mg PO DAILY 11/05/24 Stool [place] 1 tab PO DAILY 11/05/24 Controlled Substance Measures - Controlled Substance Measures Is patient prescribed a controlled substance at discharge?: No
== END ==
LOC: PNWHC3 10:02
PROVIDERS: ATTEND Specialist
DX: M96.1 Postlaminectomy syndrome, not elsewhere classified (principal); G89.29 Other chronic pain; Z87.891 Personal history of nicotine dependence; Z91.018 Allergy to other foods; Z91.012 Allergy to eggs; Z91.011 Allergy to milk products; Z91.09 Other allergy status, other than to drugs and biological substances
CPT/HCPCS: 99212

== ENCOUNTER 2024-12-05 06:22 | Day surgery (SDC) | payer MEDICARE ==
[2024-12-05] MEDS ORDERED: LACTATED RINGERS 1,000 ML IV SCH (06:23)
[2024-12-05 06:40] VITALS: TEMP 97
[2024-12-05 06:56] LABS: Glucose,Whole Blood 118 mg/dL (70-110)
[2024-12-05] MEDS ORDERED: methylPREDNISolone ACETATE 40 MG/ML 1 ML VIAL ONE (07:06)
[2024-12-05] MEDS ORDERED: IOPAMIDOL M200 10 ML VIAL ONE (07:06)
--- NOTE | 2024-12-05 07:12 | P.PCN ---
Date of Procedure: 12/05/24 Procedure(s) Performed: PREOPERATIVE DIAGNOSIS: 1- Lumbar Degenerative Disc Diseases 2-history of lumbar laminectomy at L4-5 3-lumbar Radiculopathy. POSTOPERATIVE DIAGNOSIS: Same as preop diagnosis. PROCEDURE 1. Lumbar epidural steroid injection under fluoroscopic guidance at the L5-S1 level. (Fluoroscopy imaging was available in radiology department) 2. Lumbar epidurogram. ANESTHESIA: Lidocaine 1% 3 and then only. EBL: Minimal PROCEDURE INDICATION: The patient with low back pain and radiculitis symptoms unresponsive to conservative treatment. Fluoroscopy was used to optimize visualization of the needle placement and to maximize safety. PROCEDURE DESCRIPTION / TECHNIQUE: The patient was seen and identified in the preoperative area. Risks, benefits, complications including but not limited to infections ,bleeding ,allergic reaction to the medications ,nerve damage and not complete pain releife , and alternatives were discussed with the patient. The patient agreed to proceed with the procedure and signed the consent, and vital signs were stable. Patient was taken to the OR and time out was completed. The patient was placed in the prone position on procedure table and a pillow was placed under the abdomen to reduce lumbar lordosis. The lumbosacral area was prepped and draped in the usual sterile fashion.ere closely monitored during the procedure. Vital signs was monitered during the entire procedure. Using anterior-posterior fluoroscopy, the L5-S1 interlaminar space was identified and the skin over this site was marked and then infiltrated with 1% lidocaine subcutaneously. Subsequently, a 20-gauge Tuohy epidural needle was inserted and advanced toward the epidural space using the ``Loss of resistance technique and guided by AP and lateral fluoroscopy. The correct needle position in the epidural space was verified with the injection of 2 mL of the water soluble contrast dye Isovue 200 contrast and observing an excellent epidurogram with the epidural spread of the dye, after negative aspiration for blood and CSF and in the absence of paresthesias. Again after negative aspiration, a 5 ml mixture containing 40 mg of Depo-medrol ( Preservetive Free ), and 2 ml of preservative free Normal Saline, and 2 ml of preservative free lidocaine 1% solution was injected and a washout of epidurogram was seen. Needle was withdrawn intact, skin was cleansed, and bandages were applied. COMPLICATIONS: None DISPOSITION / PLANS: The patient was placed in a supine position and transferred to the recovery area in a stable condition for observation. There was no evidence of lower extremity motor or sensory deficit after the procedure. Patient was discharged from the recovery room after meeting discharge criteria. Home discharge instructions were given to the patient by the staff. The patient was reexamined prior to discharge. The patient will schedule a follow up in the clinic in 2-4 weeks.
--- NOTE | 2024-12-05 07:21 | FL ---
EXAMINATION TYPE: FL guided pain mgmt statistic DATE OF EXAM: 12/05/2024 CLINICAL INDICATION: Male, 78 years old with history of LESI; PHH, pain TECHNIQUE: Fluoroscopy. COMPARISON: None. FINDINGS: Fluoroscopic guidance was provided during pain relief procedure performed by Dr. Mathias . A total of 1.7 seconds of fluoroscopic time was utilized during the procedure and one image was ac quired. Image acquired shows needle localization at L5 level. Degeneration changes of the visualized joints. Total DAP: 0.28974 mGy x m2. IMPRESSION: As Above. [facility], , 12/05/2024 7:19 AM
[2024-12-05 07:51] VITALS: BP 132/80; PULSE 71; RESP 16
== END 2024-12-05 08:03 | disposition home or self-care (01) ==
LOC: ORPAIN 06:22
PROVIDERS: ATTEND Specialist
DX: M51.16 Intervertebral disc disorders with radiculopathy, lumbar region (principal); E11.9 Type 2 diabetes mellitus without complications; I10 Essential (primary) hypertension; Z88.7 Allergy status to serum and vaccine; Z88.8 Allergy status to other drugs, medicaments and biological substances; Z79.82 Long term (current) use of aspirin; Z79.899 Other long term (current) drug therapy
CPT/HCPCS: 62323; Q9966; J1010

== ENCOUNTER → 2024-12-25 | Outpatient (CLI) | payer MEDICARE ==
[2024-12-25 10:45] VITALS: BP 129/69; PULSE 74; RESP 16; TEMP 98.9
--- NOTE | 2024-12-25 15:27 | P.PAINPG ---
PQRS Measure Charge Sheet Comment: A 79 yr old male with a history of severe and chronic LBP > 1 yr secondary to L4-L5 post laminectomy syndrome presents today for evaluation s/p ROBINA L5-S1 #3. Pt states he experienced 60 % pain relief x 2 wks s/p procedure. Pain level is 9-10 /10 in intensity, intermittent, predominantly axial, achy in character, localized in the lower lumbar spine w occasional radiation of pain toward the buttocks and LEs. Pain is provoked by lifting, twisting. Pain is alleviated with medications, topical, heat, ice, physician guided home stretching regimen every morning since Aug 2022, use of a cane for ambulatory assistance, repositioning and rest. Interventional pain procedures completed include BL RFA C4-C6 (2021), GRACIE C6- C7/ C7-T1, BL RFA L3-L5, R Reverse Total Arthroplasty (2022), R Knee Arthroplasty (2022), ROBINA L5-S1 x3 (05/18, 11/19) Patient is currently on ASA, Ibu, Advil, CBD Oil Patient denies any side effects of the medication(s), denies excessive drowsiness or sleepiness, denies suicidal ideation and reports that the current pain medication is helping to control the pain and improve activities of daily living. Patient denies any motor or sensory deficits. Patient denies any fever or night sweats, denies any change in the bowel movements or urination. Physical Examination: -Constitutional: Cooperative. Not in acute distress . - Neurologic: Cranial nerve II to XII intact. No focal neurological deficits. - Psychatric: Alert & oriented x 3. Matching mood & appropriate affect. Judgment and insight intact. - Musculoskeletal: Cervical spine: Muscle bulk/ tone/ strength in the bilateral upper extremities normal Vertebral body tenderness to palpation over Spurling test positive Distraction test positive Facet loading test positive Thoracic spine Muscle bulk / tone/ strength in the bilateral paraspinal muscles normal Vertebral body tender to palpation over Facet loading test positive Lumbar spine: Motor bulk/ tone/ strength lower extremities , thigh and legs : 5/5 Deep tendon reflexes : Normal Knee Jerk. Normal Ankle Jerk . Vertebral body tenderness to palpation over L4 Plata test positive L L4-L5 Lumbar Facet Loading Test positive Straight Leg Raise: positive at < 30 degrees right side/ left side Gaenslen's Test positive Sacral spine : Severe tenderness over the Sacroiliac joint: right side / left side Range of motion: Flexion of the lumbar spine <60 degrees Range of motion: Extension of the lumbar spine <20 degrees Gaenslen's Test positive Davion's Test positive Chuck test: positive right side / left side Thigh Thrust Test Sacral Thrust Test Imaging : MRI non contrast lumbar spine from 03/25/24 reviewed (negative for post operative changes) Assessment and plan: Chronic LBP secondary to L4-L5 post laminectomy syndrome (imaging negative for post operative changes) Recommendation of BL TFESI L4-L5 #1. Risks, benefits of procedure disc ussed and pt verbalized understanding. Protocol for discontinuation/ continuation of medications dorian procedure discussed. All patient questions answered . I have spent less than 30 minutes on patient care today. Dr Mathias was available by phone for the evaluation of this patient. The time was used to review the medical records including relevant urine studies and Prescription history (MAPs), review of the available imaging, evaluation and examination of the patient, coordination of care with the medical staff and if applicable referring physicians, as well as creation of the medical record PQRS Narrative: Smoking Status Former smoker Hx Alcohol Use (MH) No Home Medications: Ambulatory Orders Lisinopril-Hctz 20-25 mg [Zestoretic 20-25] 1 tab PO QAM 09/06/17 allopurinoL [Zyloprim] 300 mg PO DAILY 09/06/17 Nitroglycerin Sl Tabs [Nitrostat] 0.4 mg SUBLINGUAL Q5M PRN 10/02/17 Atorvastatin [Lipitor] 20 mg PO DAILY 06/15/20 Cyclobenzaprine [Flexeril] 5 mg PO BID PRN 06/15/20 Montelukast [Singulair] 10 mg PO DAILY 06/15/20 Cholecalciferol (Vitamin D3) [Vitamin D3 (5000 Iu)] 125 mcg PO DAILY 06/17/20 Vitamin B Complex/Folic Acid [B-Complex Tablet] 1 tab PO DAILY 06/17/20 Repaglinide [Prandin] 1 mg PO BID 11/25/20 Finasteride [Proscar] 5 mg PO DAILY 07/05/21 Pioglitazone [Actos] 15 mg PO DAILY 11/23/23 metFORMIN HCL 500 mg PO BID 02/07/24 Tamsulosin HCl [Flomax] 0.4 mg PO DAILY #30 capsule 05/16/24 Aspirin [Adult Low Dose Aspirin EC] 81 mg PO DAILY 11/05/24 Stool Softner 1 tab PO DAILY 11/05/24 Controlled Substance Measures - Controlled Substance Measures Is patient prescribed a controlled substance at discharge?: No
== END ==
LOC: PNWHC3 10:07
PROVIDERS: ATTEND Specialist
DX: M54.16 Radiculopathy, lumbar region (principal); M96.1 Postlaminectomy syndrome, not elsewhere classified; G89.29 Other chronic pain; Z87.891 Personal history of nicotine dependence; Z91.012 Allergy to eggs; Z91.011 Allergy to milk products; Z91.018 Allergy to other foods
CPT/HCPCS: 99211

== ENCOUNTER 2025-01-16 06:11 | Day surgery (SDC) | payer MEDICARE ==
[2025-01-14 11:03] VITALS: BMI 31.1
[~2025-01-16 06:11] MED LIST changes: -DEXAMETHASONE SOD PHOSPHATE 4 MG/ML 1 ML VIAL ONE; -HYDROmorphone (PF) 1 MG/ML ONE; -KETOROLAC 15 MG/ML 1 ML VIAL ONE; +LACTATED RINGERS 1,000 ML IV SCH; -LIDOCAINE 1% INJ 10MG/ML (20 ML MDV) ONE; -MIDAZOLAM 2 MG/2 ML VIAL IV PRN; -PHENYLEPHRINE-0.9% NACL SYG 1,000 MCG/10 ML SYRINGE ONE; -PROPOFOL 10 MG/ML 20 ML VIAL IV ONE; -ROPIVACAINE 5 MG/ML 30 ML VIAL ONE; -fentaNYL (PF) 50 MCG/ML 2 ML AMP ONE
[2025-01-16 06:41] LABS: Glucose,Whole Blood 86 mg/dL (70-110)
[2025-01-16 06:50] VITALS: TEMP 97.8
[2025-01-16] MEDS ORDERED: methylPREDNISolone ACETATE 40 MG/ML 1 ML VIAL ONE (06:57)
[2025-01-16] MEDS ORDERED: IOPAMIDOL M200 10 ML VIAL ONE (06:57)
--- NOTE | 2025-01-16 07:16 | P.PCN ---
Date of Procedure: 01/16/25 Procedure(s) Performed: PREOPERATIVE DIAGNOSIS: 1-Lumbar radiculopathy . 2-lumbar spinal stenosis. 3-lumbar spondylosis with lumbar facet arthropathy without myelopathy POSTOPERATIVE DIAGNOSIS: 1-lumbar radiculopathy. 2-lumbar spinal stenosis. 3- lumbar spondylosis with facet arthropathy without myelopathy PROCEDURE 1. Transforaminal epidural steroid injection under fluoroscopic guidance at lateral L4-5 level. (Fluoroscopy images stored on file in the radiology Department ) 2. Lumbar epidurogram . ANESTHESIA: Local with 1% lidocaine 3 ml. EBL: Minimal PROCEDURE INDICATION: The patient with low back pain and radiculopathy symptoms unresponsive to conservative treatment. PROCEDURE DESCRIPTION / TECHNIQUE: The patient was seen and identified in the preoperative area. Risks, benefits, complications, and alternatives were discussed with the patient. The patient agreed to proceed with the procedure and signed the consent. IV was started, and vital signs were stable. Patient was taken to the OR and time out was completed. The patient was placed in the prone position on procedure table and a pillow was placed under the abdomen to reduce lumbar lordosis. The lumbosacral area was prepped and draped in the usual sterile fashion. Critical pause was taken. Vital signs were closely monitored during the procedure. Using oblique fluoroscopy, the chin of the ``Alhaji dog at right L4-5 level was identified, and the skin and deeper tissues just below was localized with 1% lidocaine. Subsequently, a 23-gauge 3.5-inch spinal needle was advanced under a tunneled view fluoroscopic guidance just underneath the chin of the ``Alhaji dog at the right L4-5 Under lateral fluoroscopy, the needle was then advanced to the posterior border of the interforaminal space. After negative aspiration of CSF and blood and with no paresthesias, 1 mL Isovue 200 contrast dye was injected excellent epidurogram and outlining of the nerve root Subsequently, 3 mL of block solution containing 20 mg Depo-Medrol and 2 mL of 0.9% normal saline PF was injected. Needle was removed and the same procedure was repeated at the left L4-5 level . At the end of the procedure, skin was cleansed, and bandages were applied. COMPLICATIONS:none DISPOSITION / PLANS: The patient was placed in a supine position and transferred to the recovery area in a stable condition for observation. There was no evidence of lower extremity motor or sensory deficit after the procedure. Patient was discharged from the recovery room after meeting discharge criteria. Home discharge instructions were given to the patient by the staff. The patient was reexamined prior to discharge.
[2025-01-16 07:26] VITALS: RESP 16
[2025-01-16 07:36] VITALS: BP 148/72; PULSE 69
--- NOTE | 2025-01-16 07:38 | FL ---
Fluoroscopy INDICATION: Pain FINDINGS: Fluoroscopy time: 14.6 seconds. Total dose area product (DAP) in uGy*m?, mGy*cm? (or similar): 0.44759 Images obtained: 3. Images document needle placement at the lumbar spine IMPRESSION: 1. Documentation of fluoroscopy. [facility], , 01/16/2025 7:36 AM
== END 2025-01-16 07:53 | disposition home or self-care (01) ==
LOC: ORPAIN 06:11
PROVIDERS: ATTEND Specialist
DX: M48.061 Spinal stenosis, lumbar region without neurogenic claudication (principal); M47.26 Other spondylosis with radiculopathy, lumbar region; Z91.012 Allergy to eggs; Z91.011 Allergy to milk products; Z91.018 Allergy to other foods; Z88.7 Allergy status to serum and vaccine
CPT/HCPCS: 64483; Q9966; J1010

== ENCOUNTER → 2025-02-10 | Outpatient (CLI) | payer MEDICARE ==
[2025-02-10 10:31] VITALS: BP 151/64; PULSE 80; RESP 17
--- NOTE | 2025-02-12 10:52 | P.PAINPG ---
Objective - Vital Signs Vital signs: Vital Signs Temp Pulse 80 02/10/25 10:26 Resp 17 02/10/25 10:26 BP 151/64 02/10/25 10:26 Pulse Ox 99 02/10/25 10:26 FiO2 Intake & Output 02/09/25 02/10/25 02/10/25 18:59 06:59 18:59 Weight 95.254 kg PQRS Measure Charge Sheet Mode of Arrival: Ambulatory Comment: A 79 yr old male with a history of severe and chronic LBP > 1 yr secondary to L4-L5 post laminectomy syndrome presents today for evaluation s/p BL TFESI L4-L5 #1. Pt states he experienced 60 % pain relief x 3 wks s/p procedure. Pain level is 4 /10 in intensity, intermittent, predominantly axial, achy in character, localized in the lower lumbar spine w occasional radiation of pain toward the buttocks and LEs. Pain is provoked by lifting, twisting. Pain is alleviated with medications, topical, heat, ice, physician guided home stretching regimen every morning since Aug 2022, use of a cane for ambulatory assistance, repositioning and rest. Interventional pain procedures completed include BL RFA C4-C6 (2021), GRACIE C6- C7/ C7-T1, BL RFA L3-L5, R Reverse Total Arthroplasty (2022), R Knee Arthroplasty (2022), ROBINA L5-S1 x3 (05/18, 11/19), BL TFESI L4-L5 x1 (01/17) Patient is currently on ASA, Ibu, Advil, CBD Oil Patient denies any side effects of the medication(s), denies excessive drowsiness or sleepiness, denies suicidal ideation and reports that the current pain medication is helping to control the pain and improve activities of daily living. Patient denies any motor or sensory deficits. Patient denies any fever or night sweats, denies any change in the bowel movements or urination. Physical Examination: -Constitutional: Cooperative. Not in acute distress . - Neurologic: Cranial nerve II to XII intact. No focal neurological deficits. - Psychatric: Alert & oriented x 3. Matching mood & appropriate affect. Judgment and insight intact. - Musculoskeletal: Cervical spine: Muscle bulk/ tone/ strength in the bilateral upper extremities normal Vertebral body tenderness to palpation over Spurling test positive Distraction test positive Facet loading test positive Thoracic spine Muscle bulk / tone/ strength in the bilateral paraspinal muscles normal Vertebral body tender to palpation over Facet loading test positive Lumbar spine: Motor bulk/ tone/ strength lower extremities , thigh and legs : 5/5 Deep tendon reflexes : Normal Knee Jerk. Normal Ankle Jerk . Vertebral body tenderness to palpation over L4 Plata test positive L L4-L5 Lumbar Facet Loading Test positive Straight Leg Raise: positive at < 30 degrees right side/ left side Gaenslen's Test positive Sacral spine : Severe tenderness over the Sacroiliac joint: right side / left side Range of motion: Flexion of the lumbar spine <60 degrees Range of motion: Extension of the lumbar spine <20 degrees Gaenslen's Test positive Davion's Test positive Chuck test: positive right side / left side Thigh Thrust Test Sacral Thrust Test Imaging : MRI non contrast lumbar spine from 03/25/24 reviewed (negative for post operative changes) Assessment and plan: Chronic LBP secondary to L4-L5 post laminectomy syndrome (imaging negative for post operative changes) Will manage residual pain and may RTC on an as-needed basis. All patient questions answered . I have spent less than 30 minutes on patient care today. Dr Mathias was available by phone for the evaluation of this patient. The time was used to review the medical records including relevant urine studies and Prescription history (MAPs), review of the available imaging, evaluation and examination of the patient, coordination of care with the medical staff and if applicable referring physicians, as well as creation of the medical record PQRS Narrative: Smoking Status Former smoker Blood Pressure 151/64 Pain Intensity [Lower Back] 4 Scale Used Numeric (1 - 10) Hx Alcohol Use (MH) No Home Medications: Ambulatory Orders Lisinopril-Hctz 20-25 mg [Zestoretic 20-25] 1 tab PO QAM 09/06/17 allopurinoL [Zyloprim] 300 mg PO DAILY 09/06/17 Nitroglycerin Sl Tabs [Nitrostat] 0.4 mg SUBLINGUAL Q5M PRN 10/02/17 Atorvastatin [Lipitor] 20 mg PO DAILY 06/15/20 Cyclobenzaprine [Flexeril] 5 mg PO BID PRN 06/15/20 Montelukast [Singulair] 10 mg PO DAILY 06/15/20 Cholecalciferol (Vitamin D3) [Vitamin D3 (5000 Iu)] 125 mcg PO DAILY 06/17/20 Vitamin B Complex/Folic Acid [B-Complex Tablet] 1 tab PO DAILY 06/17/20 Repaglinide [Prandin] 1 mg PO BID 11/25/20 Finasteride [Proscar] 5 mg PO DAILY 07/05/21 Pioglitazone [Actos] 15 mg PO DAILY 11/23/23 metFORMIN HCL 500 mg PO BID 02/07/24 Tamsulosin HCl [Flomax] 0.4 mg PO DAILY #30 capsule 02/08/24 Aspirin [Adult Low Dose Aspirin EC] 81 mg PO DAILY 11/05/24 Stool Softner 1 tab PO DAILY 11/05/24 Controlled Substance Measures - Controlled Substance Measures Is patient prescribed a controlled substance at discharge?: No
== END ==
LOC: PNWHC3 10:21
PROVIDERS: ATTEND Specialist
DX: M96.1 Postlaminectomy syndrome, not elsewhere classified (principal); M47.816 Spondylosis without myelopathy or radiculopathy, lumbar region; Z91.018 Allergy to other foods; Z91.011 Allergy to milk products; Z91.012 Allergy to eggs; Z91.048 Other nonmedicinal substance allergy status; Z88.7 Allergy status to serum and vaccine; Z87.891 Personal history of nicotine dependence
CPT/HCPCS: 99212